=== PATIENT | male | born 1985 | race African-American/Black ===

== ENCOUNTER 2018-02-26 19:41 | Emergency (ER) | payer OTHER ==
[2018-02-26 20:29] LABS: BASOPHILS % (AUTO) 0.2 %; EOSINOPHILS % (AUTO) 0.4 %; HGB - HEMOGLOBIN 13.5 g/dL (14.0-18.0); LYMPHOCYTES # (AUTO) 1.2 10^3/uL (1.5-3.5); LYMPHOCYTES % (AUTO) 10.8 %; MEAN CORPUSCULAR HEMOGLOBIN 27.7 pg (27.0-31.0); MEAN CORPUSCULAR HGB CONC 33.2 g/dL (32.0-36.0); MEAN CORPUSCULAR VOLUME 83.4 fL (80.0-94.0); MONOCYTES # (AUTO) 1.3 10^3/uL (0.0-1.0); MONOCYTES % (AUTO) 11.4 %; NEUTROPHILS # (AUTO) 8.5 10^3/uL (1.5-6.6); NEUTROPHILS % (AUTO) 77.2 %; PLT - PLATELET COUNT 158 10^3/uL (130-450); RED BLOOD COUNT 4.87 10^6/uL (4.70-6.10); RED CELL DISTRIBUTION WIDTH 13.4 % (12.0-15.0)
[2018-02-26] MEDS ORDERED: SODIUM CHLORIDE 0.9% 1,000 ML IV ONE (20:31)
--- NOTE | 2018-02-26 20:35 | ED Physician Documentation ---
PD HPI HEENT - Stated complaint Stated Complaint: SORE THROAT/FEVER/DIZZY - Chief complaint Chief Complaint: Heent - History obtained from History obtained from: Patient - History of Present Illness Timing - onset: Today Timing - duration: Days (1) Timing - details: Abrupt onset, Still present Location: Throat (onset sore throat that is worsening quickly through the day.) Worsens: Swalllowing Associated symptoms: Fever, Trismus, Swollen nodes, Headache. No: Congestion, Unable to swallow, Facial swelling, Cough Similar symptoms before: Has not had sx before Recently seen: Not recently seen Review of Systems Constitutional: reports: Fever, Chills, Myalgias Ears: denies: Ear pain Nose: denies: Rhinorrhea / runny nose, Congestion Throat: reports: Sore throat, Swollen tonsils Respiratory: denies: Cough GI: denies: Abdominal Pain, Vomiting, Diarrhea : reports: Other (his does not have any vaginal pain/discharge). denies : Discharge Skin: denies: Rash PD PAST MEDICAL HISTORY - Past Medical History Cardiovascular: None Respiratory: None Neuro: None Endocrine/Autoimmune: None - Present Medications Home Medications: Ambulatory Orders Medication Instructions Recorded Confirmed Cephalexin [Keflex] 500 mg PO QID #28 capsule 02/26/18 Dexamethasone [Decadron] 4 mg PO DAILY #5 tablet 02/26/18 Dextroamphetamine/Amphetamine 1 tab PO TID 02/26/18 02/26/18 [Adderall 20 mg Tablet] HYDROcod/ACETAM 5/325 [Lincoln 5/325] 1 tab PO Q6H PRN #15 tablet 02/26/18 Ondansetron Odt [Zofran] 4 mg TL Q6H PRN #10 tablet 02/26/18 - Allergies Allergies/Adverse Reactions: Allergies Allergy/AdvReac Type Severity Reaction Status Date / Time Penicillins Allergy Edema Verified 02/26/18 19:49 - Living Situation Living Situation: reports: With spouse/s.o. Living Arrangement: reports: At home PD ED PE NORMAL - Vitals Vital signs reviewed: Yes - General General: Alert and oriented X 3, Well developed/nourished, Other (appears in pain with swallowing and has somewhat garbled voice talking. ) - HEENT HEENT: Ears normal, Dentition benign. No: Pharynx benign (tonsillar exudate and swelling and right peritonsillar edema and redness but not bulging/ deviated. ) - Neck Neck: Supple, no meningeal sign, Other (anterior adenopathy tender, especially right. ) - Cardiac Cardiac: RRR, No murmur - Respiratory Respiratory: Clear bilaterally - Abdomen Abdomen: Soft, Non tender - Derm Derm: Normal color, Warm and dry, No rash - Neuro Neuro: Alert and oriented X 3, No motor deficit. No: Normal speech Results - Vitals Vitals: Vital Signs - 24 hr 02/26/18 02/26/18 02/26/18 19:45 20:32 20:39 Temperature 38.8 C H 39.4 C H Heart Rate 108 H 100 100 Respiratory 19 20 20 Rate Blood Pressure 158/91 H 146/89 H O2 Saturation 95 95 96 02/26/18 21:02 Temperature 39.2 C H Heart Rate 99 Respiratory 22 Rate Blood Pressure 129/70 O2 Saturation 94 Oxygen O2 Source Room air - Labs Labs: Laboratory Tests 02/26/18 02/26/18 02/26/18 19:49 20:18 20:18 WBC 11.0 H RBC 4.87 Hgb 13.5 L Hct 40.6 L MCV 83.4 MCH 27.7 MCHC 33.2 RDW 13.4 Plt Count 158 MPV 7.0 L Neut # (Auto) 8.5 H Lymph # (Auto) 1.2 L Tyrrell # (Auto) 1.3 H Eos # (Auto) 0.0 Baso # (Auto) 0.0 Absolute Nucleated RBC 0.00 Nucleated RBC % 0.0 Sodium 128 L Potassium 3.8 Chloride 91 L Carbon Dioxide 28 Anion Gap 9.0 BUN 16 Creatinine 1.2 Estimated GFR (MDRD) 85 L Glucose 125 H Calcium 8.7 Total Bilirubin 1.0 AST 34 ALT 38 Alkaline Phosphatase 61 Total Protein 7.6 Albumin 3.9 Globulin 3.7 Albumin/Globulin Ratio 1.1 Lipase 21 L Group A Strep Rapid Negative PD MEDICAL DECISION MAKING - ED course Complexity details: re-evaluated patient (feeling better with swallowing though still hurts; voice is less garbled already. ), considered differential, d/w patient Departure - Departure Disposition: 01 Home, Self Care Clinical Impression: Peritonsillar cellulitis Acute tonsillitis Qualifiers: Pharyngitis/tonsillitis etiology: unspecified etiology Qualified Code(s): J03.90 - Acute tonsillitis, unspecified Condition: Stable Record reviewed to determine appropriate education?: Yes Instructions: ED Peritonsillar Infec Abx No I andD Prescriptions: Cephalexin [Keflex] 500 mg PO QID #28 capsule Dexamethasone [Decadron] 4 mg PO DAILY #5 tablet HYDROcod/ACETAM 5/325 [Lincoln 5/325] 1 tab PO Q6H PRN #15 tablet PRN Reason: Pain Ondansetron Odt [Zofran] 4 mg TL Q6H PRN #10 tablet PRN Reason: Nausea / Vomiting Comments: Drink lots of fluids. Cephalexin antibiotic 4 times a day for the next week. Decadron steroid for the inflammation daily for 5 more days. Tylenol or ibuprofen if needed for fevers or pains. Add hydrocodone if needed for worse pain. Ondansetron if needed for nausea. Recheck if not improving well in the next day or 2 and pretty much all better by 4-5 days. Return sooner if worsening, in particular trouble breathing or unable to swallow adequately for hydration. Sometimes this will worsen despite the medication inform into an abscess that needs draining Discharge Date/Time: 02/26/18 22:31
[2018-02-26 20:39] LABS: ALBUMIN 3.9 g/dL (3.2-5.5); ALBUMIN/GLOBULIN RATIO 1.1 (1.0-2.2); CALCIUM 8.7 mg/dL (8.5-10.3); CREATININE 1.2 mg/dL (0.6-1.2); TOTAL PROTEIN 7.6 g/dL (6.7-8.2)
[2018-02-26 21:03] VITALS: BP 129/70
[2018-02-26] MEDS ORDERED: ACETAMINOPHEN 500 MG TABLET PO STA (21:04)
[2018-02-26] MEDS ORDERED: ONDANSETRON ODT 4 MG Prepack 2 TL PRN (21:12)
[2018-02-26] MEDS ORDERED: KETOROLAC 30 MG/ML VIAL IVP STA (21:12)
[2018-02-26] MEDS ORDERED: HYDROcod/ACET 5/325 Prepack 4 PO STA (21:12)
[2018-02-26] MEDS ORDERED: cefTRIAXone 1 GM in SODIUM CHLORIDE 0.9% MINIBAG 100 ML IV STA (21:12)
[2018-02-26] MEDS ORDERED: MORPHINE 10 MG/ML VIAL IVP STA (21:12)
[2018-02-26] MEDS ORDERED: DEXAMETHASONE 10 MG/ML VIAL IVP STA (21:12)
[2018-02-26] MEDS ORDERED: ONDANSETRON 4 MG/2 ML VIAL IVP STA (21:13)
== END 2018-02-26 22:31 | disposition home or self-care (01) ==
LOC: ED 19:41
DX: J03.90 Acute tonsillitis, unspecified (principal)
CPT/HCPCS: 36415; 80053; 83690; 85025; 87070; 87430; 96365; 96375; 99283; 99284; A9270

== ENCOUNTER 2021-02-09 20:38 | Emergency (ER) | payer MEDICAID, OTHER ==
--- NOTE | 2021-02-09 21:51 | XRAY Report ---
PROCEDURE: Foot 3 View LT INDICATIONS: proximal 5th pain chronic TECHNIQUE: 3 views of the foot were acquired. COMPARISON: None FINDINGS: No acute fracture identified. Posterior calcaneal spur. Tibiotalar joint degeneration and diffuse spu rring and subchondral sclerosis. Possible bunionette deformity of the fifth metatarsal with soft tiss ue swelling at the lateral aspect of the fifth metatarsal head although weightbearing views would be more specific. IMPRESSION: Possible bunionette deformity of the fifth metatarsal with adjacent soft tissue swelling lateral to t he left fifth metatarsal head. Consider weightbearing views for more specific evaluation. Reviewed by: Miguel Spring MD on 02/09/2021 9:50 PM PDT Approved by: Miguel Spring MD on 02/09/2021 9:50 PM PDT Station ID: [id number]
[2021-02-09] MEDS ORDERED: RIVAROXABAN 15 MG TABLET PO STA (23:22)
--- NOTE | 2021-02-09 23:25 | ED Physician Documentation ---
History of Present Illness - Stated complaint Stated Complaint: L FOOT PX - Chief complaint Chief Complaint: Ext Problem - History obtained from History obtained from: Patient - History of Present Illness Timing: How many weeks ago (2) - Additonal information Additional information: 35-year-old male who is 6 feet 7 and 212 kg has a new baby and he has been stay ing up nights and he has been mostly sedentary and is used a lot of physical activity. he has developed some swelling to his left lower extremity and he is concerned about a deep vein thrombosis. He has some pain in the back of his calf and all the way up into his thigh. He has some pain on his foot as well especially over the proximal fifth metatarsal and he has had pain there chronically. Review of Systems Constitutional: denies: Fever Nose: denies: Congestion Throat: denies: Sore throat Cardiac: denies: Chest pain / pressure, Palpitations Respiratory: denies: Dyspnea, Cough GI: denies: Vomiting : denies: Dysuria PD PAST MEDICAL HISTORY - Past Medical History Past Medical History: Yes Cardiovascular: None Respiratory: None Neuro: None Endocrine/Autoimmune: None Psych: ADD/ADHD - Past Surgical History Past Surgical History: Yes - Present Medications Home Medications: Ambulatory Orders Medication Instructions Recorded Confirmed Rivaroxaban [Xarelto] 15 mg PO BID #42 tablet 02/09/21 - Allergies Allergies/Adverse Reactions: Allergies Allergy/AdvReac Type Severity Reaction Status Date / Time Penicillins Allergy Edema Verified 02/09/21 20:41 - Social History Does the pt smoke?: No Smoking Status: Never smoker Does the pt drink ETOH?: Yes Does the pt have substance abuse?: No - Immunizations Immunizations are current?: Yes - POLST Patient has POLST: No PD ED PE NORMAL - Vitals Vital signs reviewed: Yes (hypertensive ) - General General: Alert and oriented X 3, No acute distress, Well developed/nourished - HEENT HEENT: Atraumatic, PERRL, EOMI - Respiratory Respiratory: No respiratory distress - Derm Derm: Normal color, Warm and dry, No rash - Extremities Extremities: Other (There is swelling and tenderness to the posterior calf and there is swelling to the leg. There is pain to palp of the proximal 5th in a specific area. distal n/v intact. 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 Limited exam due to patient body habitus. Possible partial thrombus of the proximal left peroneal vein. No evidence of deep vein thrombosis above the level of the knee.), EMP read indepedently, See rad report foot Radiology: Prelim report reviewed (Impression: Possible bunionette deformity of the fifth metatarsal with adjacent soft tissue swelling lateral to the fifth metatarsal head. Consider weightbearing views for more specific evaluation.), EMP read indepedently, See rad report PD MEDICAL DECISION MAKING - ED course Complexity details: reviewed results, re-evaluated patient, considered differential, d/w patient ED course: 35-year-old male with swelling to the left lower extremity has a peroneal vein DVT and this is a distal DVT. Because the patient is symptomatic with the swelling and pain he is offered anticoagulation and readily accepts this. He is administered Xarelto 15 mg twice daily for the next 3 weeks to be followed by 20 mg daily. I have encouraged the patient to follow-up with his primary to consider reimaging this area as prolonged treatment may not be necessary. Departure - Departure Disposition: 01 Home, Self Care Clinical Impression: DVT, lower extremity, distal, acute Qualifiers: Laterality: left Qualified Code(s): I82.4Z2 - Acute embolism and thrombosis of unspecified deep veins of left distal lower extremity Condition: Stable Instructions: ED DVT Follow-Up: Nehemias Yost MD [Primary Care Provider] - Prescriptions: Rivaroxaban [Xarelto] 15 mg PO BID #42 tablet Comments: Serg, today you have a distal deep vein thrombosis in your calf in the peroneal vein. You are symptomatic with this and treatment is indicated. The treatment consists of anticoagulation with Xarelto. You will need to take this twice per day for about 3 weeks and follow that up with once a day for 3 months. These distal DVTs are sometimes treated without anticoagulation and my recommendation is to follow-up with your primary care doctor and have a repeat ultrasound done as you may have resolution of your clot once you start the anticoagulation. This may lead to an early dismissal of the anticoagulation. Discharge Date/Time: 02/09/21 23:46
[2021-02-09 23:48] VITALS: BP 132/89
--- NOTE | 2021-02-10 07:16 | Ultrasound Report ---
PROCEDURE: Duplex Ext Veins Left INDICATIONS: L LE swelling pain TECHNIQUE: Real-time imaging, as well as color and pulse Doppler interrogation, were performed of the lower extr emity deep veins from the inguinal ligament to the popliteal fossa. COMPARISON: None. FINDINGS: Image quality and diagnostic 2 view study limited by patient body habitus. The deep veins are normally compressible, and free of intraluminal thrombus. Color and pulse Doppler demonstrate normal phasic intraluminal flow. There is normal augmentation response to distal compre ssion maneuver. Partial partial thrombus identified in the proximal left peroneal veins. IMPRESSION: 1. No evidence of thrombosis involving the deep venous system of the left lower extremity. 2. Possible partial nonocclusive thrombus involving the proximal left peroneal veins of the superfici al venous system. Reviewed by: Leigh Ann Hendrickson MD, PhD on 02/10/2021 7:14 AM PDT Approved by: Leigh Ann Hendrickson MD, PhD on 02/10/2021 7:14 AM PDT Station ID: [id number]
== END 2021-02-09 23:46 | disposition home or self-care (01) ==
LOC: ED 20:38
DX: I82.452 Acute embolism and thrombosis of left peroneal vein (principal)
CPT/HCPCS: 73630; 93971; 99284; A9270

== ENCOUNTER 2021-07-06 08:00 | Outpatient (CLI) | payer MEDICAID | END 2021-07-06 23:59 | disposition home or self-care (01) | LOC: LAB.S 08:00 | PROVIDERS: ATTEND Emergency Medicine | DX: L03.115 Cellulitis of right lower limb (principal) | CPT/HCPCS: 87070; 87077; 87181; 87205 ==

== ENCOUNTER 2021-07-08 21:03 | Emergency (ER) | payer MEDICAID ==
[2021-07-08 21:27] VITALS: BP 152/92
[2021-07-08] MEDS ORDERED: KETOROLAC 60 MG/2 ML VIAL IM STA (21:50)
[2021-07-08] MEDS ORDERED: CLINDAMYCIN 150 MG CAPSULE PO STA (21:51)
[2021-07-08] MEDS ORDERED: LIDOCAINE 1%-EPI 1:100000 20 ML MDV SUBQ STA (21:55)
--- NOTE | 2021-07-08 23:16 | ED Physician Documentation ---
History of Present Illness - Stated complaint Stated Complaint: RT LEG PX/INFECTION/FEVER - Chief complaint Chief Complaint: Ext Problem - History obtained from History obtained from: Patient - Additonal information Additional information: 36-year-old man presents with right inner thigh wound for the past week, currently on day 2 of bactrim. patient had temp 99.7 by ear thermometer so came to the ED. Review of Systems Constitutional: reports: Fever. 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 - Past Surgical History Past Surgical History: Yes - Present Medications Home Medications: Ambulatory Orders Medication Instructions Recorded Confirmed Rivaroxaban [Xarelto] 15 mg PO BID #42 tablet 02/09/21 Clindamycin [Cleocin] 450 mg PO TID 14 Days 07/08/21 - Allergies Allergies/Adverse Reactions: Allergies Allergy/AdvReac Type Severity Reaction Status Date / Time Penicillins Allergy Edema Verified 07/08/21 21:15 - Social History Does the pt smoke?: No Smoking Status: Never smoker Does the pt drink ETOH?: No Does the pt have substance abuse?: No - Immunizations Immunizations are current?: Yes - POLST Patient has POLST: No PD ED PE NORMAL - Vitals Vital signs reviewed: Yes - General General: Alert and oriented X 3, No acute distress, Well developed/nourished - HEENT HEENT: Atraumatic, PERRL, EOMI - Derm Derm: Normal color, Warm and dry, Other (R inner thigh erythema with discrete area of induration c/w abscess) Results - Vitals Vitals: Vital Signs - 24 hr 07/08/21 07/08/21 07/08/21 21:08 21:26 23:21 Temperature 36.4 C L 36.4 C L 98.4 C H Heart Rate 96 86 Respiratory 18 20 Rate Blood Pressure 151/103 H 152/92 H O2 Saturation 96 98 96 Oxygen O2 Source Room air - Labs Labs: Microbiology 07/08/21 22:49 Wound Culture - Preliminary Leg - Right Procedures - Abscess I&D (location) Lower extremity right Preparation: Confirmed with ultrasound, Lidocaine 1%, With epi Incision: Incised with scalpel, Purulent drainage, Loculations broken, Irrigated, Packed, Culture obtained Other: Pt tolerated well, Dressing applied, Antibiotic prescribed PD MEDICAL DECISION MAKING - ED course ED course: Drains abscess and placed patient on stronger antibiotic prescription. Return precautions given. He will follow up for wound check in 48 hours. Departure - Departure Disposition: 01 Home, Self Care Clinical Impression: Abscess Condition: Good Instructions: ED Abscess IandD Prescriptions: Clindamycin [Cleocin] 450 mg PO TID 14 Days Comments: You were seen in the emergency department for abscess. You need to follow-up in 48 hours for wound check and to have the packing removed and possibly replaced. Take your antibiotics as prescribed. Ask the pharmacist for a probiotic pill to take with the antibiotics so you don't get diarrhea. Return to the emergency department immediately if you have a temperature higher than 100.4 by mouth or armpit thermometer. Please also return if you have spreading redness, pain, or any other concerns. Discharge Date/Time: 07/08/21 23:21
== END 2021-07-08 23:21 | disposition home or self-care (01) ==
LOC: ED 21:03
DX: L02.415 Cutaneous abscess of right lower limb (principal); Z86.718 Personal history of other venous thrombosis and embolism; Z79.01 Long term (current) use of anticoagulants
CPT/HCPCS: 10061; 87070; 87077; 87181; 87205; 96372; 99283; A9270

== ENCOUNTER 2021-07-11 10:51 | Emergency (ER) | payer MEDICAID ==
[2021-07-11 11:00] VITALS: BP 189/105
--- NOTE | 2021-07-11 12:13 | ED Physician Documentation ---
PD HPI WOUND RECHECK - Stated complaint Stated Complaint: R LEG WOUND CHECK - Chief complaint Chief Complaint: Wound - Histroy obtained from History obtained from: Patient - Additional information Additional information: He presents for packing replacements to abscess that was incised and drained a few days ago on right medial thigh. He feels like it is improving with not too much pain and no fevers. Review of Systems Constitutional: reports: Reviewed and negative Eyes: reports: Reviewed and negative Ears: reports: Reviewed and negative Nose: reports: Reviewed and negative Throat: reports: Reviewed and negative PD PAST MEDICAL HISTORY - Past Medical History Cardiovascular: Deep vein thrombosis Respiratory: None Neuro: None Endocrine/Autoimmune: None Psych: ADD/ADHD - Past Surgical History Past Surgical History: Yes - Present Medications Home Medications: Ambulatory Orders Medication Instructions Recorded Confirmed Rivaroxaban [Xarelto] 15 mg PO BID #42 tablet 02/09/21 Clindamycin [Cleocin] 450 mg PO TID 14 Days 07/08/21 Doxycycline Hyclate 100 mg PO BID #14 tab 07/11/21 - Allergies Allergies/Adverse Reactions: Allergies Allergy/AdvReac Type Severity Reaction Status Date / Time Penicillins Allergy Edema Verified 07/11/21 11:00 - Social History Does the pt smoke?: No Smoking Status: Never smoker Does the pt drink ETOH?: No Does the pt have substance abuse?: No - Immunizations Immunizations are current?: Yes - POLST Patient has POLST: No PD ED PE NORMAL - Vitals Vital signs reviewed: Yes - General General: Alert and oriented X 3, No acute distress - Derm Derm: Other (The abscess in the right medial thigh is completely drained, packing removed. The opening is gaping so I do not think it needs to be repacked.) - Neuro Neuro: Alert and oriented X 3, Normal speech Results - Vitals Vitals: Vital Signs - 24 hr 07/11/21 10:55 Temperature 36.8 C Heart Rate 88 Respiratory 20 Rate Blood Pressure 189/105 H O2 Saturation 94 Oxygen O2 Source Room air PD MEDICAL DECISION MAKING - ED course ED course: Culture reviewed, he will stop the clindamycin I am substituting doxycycline for the Enterococcus. Departure - Departure Disposition: 01 Home, Self Care Clinical Impression: Abscess Condition: Good Record reviewed to determine appropriate education?: Yes Instructions: ED Abscess IandD Prescriptions: Doxycycline Hyclate 100 mg PO BID #14 tab Comments: Prescription sent electronically to [facility] in [place]. You can simply wash with soap and water in the shower and keep it covered with a gauze. Return if worsening. As discussed, you can stop taking the clindamycin as we are changing her antibiotic based on the previous culture.
== END 2021-07-11 12:31 | disposition home or self-care (01) ==
LOC: ED 10:51
DX: L02.415 Cutaneous abscess of right lower limb (principal); Z48.01 Encounter for change or removal of surgical wound dressing; Z86.718 Personal history of other venous thrombosis and embolism

== ENCOUNTER 2021-11-18 08:42 | Outpatient (CLI) | payer MEDICAID ==
[2021-11-18 09:22] VITALS: BP 132/84
--- NOTE | 2021-11-18 09:22 | SLEEP CARE CONSULTATION ---
Information from patient questionnaire entered by Arben Bañuelos MA. I have reviewed and concur with the information entered by Arben Bañuelos MA. This document represents the service I personally performed and the decisions made by me, Jovanna Riley ARNP. History of Present Illness Service Date and Time: 11/18/2021 0842 Reason for Visit: New patient Chief Complaint: reports: Unrefreshed sleep, Snoring, Observed pauses in breathing, Fatigue Date of Onset: years Usual bedtime: 900 pm Time it takes to fall asleep: instant Snores at night: Yes Observed to quit breathing while asleep: Yes Sleeps alone due to snoring: No Number of times waking at night: 1-2 Reasons for waking at night: reports: Choking, Snoring, Bathroom, Other Toss, Turn, or Twitch while sleeping: Yes Recalls having dreams: No Usually gets out of bed at: 0400 Feels refreshed in the morning: No Morning headache: No Sleepy or fatigued during the day: Yes Ever fallen asleep while driving: No Takes day naps: No Dreams during day naps: No Prior sleep studies: No Additional HPI information: I had the pleasure of seeing GUSTAVO LEVIN today regarding the possibility of him having a sleep disorder. His current complaints are snoring, observed pauses in breathing and fatigue. His has been noticing that he is stopping breathing in his sleep. This last year he has been gaining weight since he stopped working out. He snores really loudly. He does not wake up as rested. He normally gets 4-6 hours a night. He will quickly fall asleep. His bed partner can still sleep in the same bed. He can recall waking up on the average of once a night. Most of the time he wakes up because of needing to use the bathroom. He has occasionally awakened for his own snoring, choking, and having to gasp for air. There is a lot of tossing and turning in his sleep. Generally he can recall having dreams. He usually wakes up at [id number] and does not feel refreshed. He usually does not have a morning headache. During the day he complains of feeling sleepy and fatigued. He has fallen asleep while driving and has gone out of the judi, no accident. He usually does not take naps during the day. There is somniloquy (sleep talking) but no somnambulism (sleep walking). He has never experienced sleep paralysis, cataplexy, or symptoms of restless leg syndrome. He denies having impaired concentration during the day. 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 Patient is and lives in [place]. Have you smoked in the past 12 months: No Quit date: QUIT TOBACCO/CHEW Alcohol use: No Alcohol amount and frequency: ALCOHOLIC QUIT Caffeine use: Yes Caffeine amount and frequency: 10-12 OZS OF COFFEE x daily Family History Family history of sleep disordered breathing: Yes Family Hx Sleep Apnea: Sibling: Snoring, Grandparent: Snoring, Sleep apnea - Untreated Allergies and Home Medications Drug allergies reviewed: Yes (Penicillin) Home medication list reviewed: Yes (no daily medications or supplements) Allergy and home medication list: Allergies Penicillins Allergy (Verified 07/11/21 11:00) Edema Review of Systems Weight loss over past 5 years: 60 Cardiovascular: reports: high blood pressure, leg or foot swelling Respiratory: reports: wheeze, sputum production Gastrointestinal: reports: heartburn, difficulty swallowing Neurological: reports: fainting or unconsciousness Ear/Nose/Throat: reports: nose bleeds Endocrine: reports: sluggishness Musculoskeletal: reports: joint pain, neck pain, joint swelling, mobility problems, other (swollen legs) Physical Exam Vital signs obtained and entered by: PAUL Chahal Blood Pressure: 132/84 (RIGHT, PULSE 82, RESP 14, ) Cuff size: wrist Heart Rate: 86 O2 Saturation: 96 (PAPER MASK) Height: 6 ft 6 in Weight: 460 lb (WITH CLOTHES AND SHOES) Body Mass Index: 53.1 BMI Classification: Morbidly Obese Neck circumference: 19.5 (inches) Mouth and throat: narrow oropharynx Soft palate: normal Hard palate: normal Uvula: long Uvula visualization: 50% Mallampati Class II Tongue: normal in size Tonsils: 3+/kissing Neck: normal w/o lymphadenopathy or thyromegaly Heart: regular rate and rhythm Lungs: clear bilaterally Impression and Plan 1. Suspected Obstructive Sleep Apnea-Hypopnea Syndrome, as suggested by a history of loud and irregular snoring, observed cessation of breath while asleep, gasping or choking in sleep and unrefreshed sleep. Narrow oropharynx and obesity are common predisposing factors for obstructive sleep apnea-hypopnea syndrome. I recommend proceeding to polysomnography to confirm the diagnosis and to assess severity. If the patient has significant sleep disordered breathing, a manual CPAP titration study will also be performed to find the optimal treatment pressure. I informed the patient of what the sleep studies involve and after some discussion, obtained agreement to proceed. The pathophysiology of obstructive sleep apnea-hypopnea syndrome was discussed with the patient and health risks of cardiovascular and cerebrovascular disease if not treated. Risks of drowsy driving discussed in detail and patient advised to avoid long distance driving and to order puller at the first sign of drowsiness. Patient agreed to plan. * Schedule polysomnography +- manual CPAP titration study and return in 1-2 weeks after the study to discuss result and initiate therapy. * Avoid long distance driving or driving when feeling sleepy. * Avoid alcohol, sedative and muscle relaxant around bedtime. * Attempt to lose weight. * Review instructions provided by trained office staff on how to prepare for the sleep study. * Return for follow-up after sleep study completed. Counseling Topics: Weight loss health impact Visit Type: In Office Time Spent with Patient (minutes): 31 Provider Statement: I spent 100% of the Face to Face Visit with the patient with greater than 50% spent counseling the patient and coordination of care.
== END 2021-11-18 08:43 | disposition home or self-care (01) ==
LOC: SC 08:42
PROVIDERS: ATTEND Nurse Practitioner Family
DX: G47.8 Other sleep disorders (principal); R06.81 Apnea, not elsewhere classified; R06.83 Snoring; E66.01 Morbid (severe) obesity due to excess calories; Z68.43 Body mass index [BMI] 50.0-59.9, adult
CPT/HCPCS: 99203; 99212

== ENCOUNTER 2021-11-29 10:08 | Outpatient (CLI) | payer MEDICAID ==
--- NOTE | 2021-11-29 12:37 | Ultrasound Report ---
PROCEDURE: Duplex Ext Veins Left INDICATIONS: DVT TECHNIQUE: Real-time imaging, as well as color and pulse Doppler interrogation, were performed of the lower extr emity deep veins from the inguinal ligament to the popliteal fossa. COMPARISON: 02/09/2021. FINDINGS: There is chronic appearing deep venous thrombosis involving the mid and distal segments of the left peroneal vein. No dilatation seen. The remainder the visualized deep veins are normally com pressible, and free of intraluminal thrombus. Color and pulse Doppler demonstrate normal phasic intr aluminal flow. There is normal augmentation response to distal compression maneuver. IMPRESSION: Chronic appearing mid and distal left peroneal thrombosis. No acute deep venous thrombosis of the semaj ged left lower extremity. Reviewed by: Jamie Hayes MD on 11/29/2021 12:36 PM PST Approved by: Jamie Hayes MD on 11/29/2021 12:36 PM PST Station ID: [id number]
== END 2021-11-29 10:09 | disposition home or self-care (01) ==
LOC: DI 10:08
PROVIDERS: ATTEND Internal Medicine
DX: I82.402 Acute embolism and thrombosis of unspecified deep veins of left lower extremity (principal)

== ENCOUNTER 2021-12-05 12:00 | Outpatient (CLI) | payer MEDICAID | END 2021-12-05 12:01 | disposition home or self-care (01) | LOC: LAB.S 12:00 | PROVIDERS: ATTEND Internal Medicine | DX: I82.91 Chronic embolism and thrombosis of unspecified vein (principal); Z79.01 Long term (current) use of anticoagulants | CPT/HCPCS: 36416; 85610 ==

== ENCOUNTER 2021-12-31 10:44 | Emergency (ER) | payer MEDICAID ==
[2021-12-31 10:52] VITALS: BP 169/93
--- NOTE | 2021-12-31 11:46 | ED Physician Documentation ---
History of Present Illness - Stated complaint Stated Complaint: LT LEG PX - Chief complaint Chief Complaint: Ext Problem - History obtained from History obtained from: Patient - History of Present Illness Timing: Today Pain level max: 3 Pain level now: 2 - Additonal information Additional information: Patient is a 36-year-old male who presents to the emergency department left leg pain and swelling. He states it is in the left upper thigh. Has a known chronic DVT in the left peroneal vein. He is on warfarin. No fevers. No chills. No trauma. Nothing makes it better or worse. No chest pain. No difficulty breathing. Review of Systems Constitutional: denies: Fever, Chills Ears: denies: Ear pain Throat: denies: Sore throat Cardiac: denies: Chest pain / pressure, Palpitations Respiratory: denies: Dyspnea, Cough PD PAST MEDICAL HISTORY - Past Medical History Past Medical History: Yes Cardiovascular: Deep vein thrombosis Respiratory: None Neuro: None Endocrine/Autoimmune: None Psych: ADD/ADHD - Past Surgical History Past Surgical History: Yes - Present Medications Home Medications: Ambulatory Orders Medication Instructions Recorded Confirmed Rivaroxaban [Xarelto] 15 mg PO BID #42 tablet 02/09/21 Clindamycin [Cleocin] 450 mg PO TID 14 Days 07/08/21 Doxycycline Hyclate 100 mg PO BID #14 tab 07/11/21 - Allergies Allergies/Adverse Reactions: Allergies Allergy/AdvReac Type Severity Reaction Status Date / Time Penicillins Allergy Edema Verified 12/31/21 10:52 - Social History Does the pt smoke?: No Smoking Status: Never smoker Does the pt drink ETOH?: No Does the pt have substance abuse?: No - Immunizations Immunizations are current?: Yes - POLST Patient has POLST: No PD ED PE NORMAL - Vitals Vital signs reviewed: Yes - General General: Alert and oriented X 3, No acute distress - HEENT HEENT: Moist mucous membranes - Neck Neck: Supple, no meningeal sign - Cardiac Cardiac: RRR - Respiratory Respiratory: No respiratory distress, Clear bilaterally - Abdomen Abdomen: Soft, Non tender, Non distended - Derm Derm: Warm and dry - Extremities Extremities: Other (Mild swelling to the left medial thigh. No erythema. No evidence of abscess. No evidence of infection. Otherwise normal exam of the left lower extremity. Neurovascular intact) - Neuro Neuro: Alert and oriented X 3 - Psych Psych: Normal mood, Normal affect Results - Vitals Vitals: Vital Signs - 24 hr 12/31/21 10:49 Temperature 36.4 C L Heart Rate 81 Respiratory 20 Rate Blood Pressure 169/93 H O2 Saturation 95 Oxygen O2 Source Room air - Labs Labs: Laboratory Tests 12/31/21 11:13 INR (Fingerstick) 1.8 H - Rads (name of study) Duplex ultrasound left lower extremity Radiology: Final report received, EMP read contemporaneously, See rad report (No acute DVT. Chronic DVT still present.) PD MEDICAL DECISION MAKING - ED course Complexity details: reviewed results, re-evaluated patient, considered differential, d/w patient ED course: No acute findings on ultrasound. Has a known chronic DVT. Warfarin level is 1.8. We will continue his current dosage. We will have him follow-up with his doctor for further care. Unclear etiology of the small area of swelling. Patient counseled regarding signs and symptoms for which I believe and urgent re-evaluation would be necessary. Patient with good understanding of and agreement to plan and is comfortable going home at this time This document was made in part using voice recognition software. While efforts are made to proofread this document, sound alike and grammatical errors may occur. Departure - Departure Disposition: 01 Home, Self Care Clinical Impression: Peripheral edema Condition: Good Instructions: ED Leg Swelling Unilateral Follow-Up: Mihir Bay MD [Primary Care Provider] - Within 1 week Comments: The cause of the swelling is unclear. Continue your medications at home. Please follow-up with your doctor for further care. Return if you worsen.
--- NOTE | 2021-12-31 13:37 | Ultrasound Report ---
PROCEDURE: Duplex Ext Veins Left INDICATIONS: LLE swelling, pain, h/o DVT TECHNIQUE: Real-time imaging, as well as color and pulse Doppler interrogation, were performed of the lower extr emity deep veins from the inguinal ligament to the popliteal fossa. COMPARISON: 11/29/2021, 02/09/2021 FINDINGS: Chronic-appearing, partially occlusive deep venous thrombosis can be seen involving the lef t peroneal veins from the mid to distal portion. This is somewhat improved compared to the prior stud y dated 11/29/2021. The proximal deep veins are normally compressible, and free of intraluminal thrombus. IMPRESSION: Improved distal deep venous thrombosis within the mid to distal peroneal veins compared to the prior. No proximal deep venous thrombosis can be seen. Reviewed by: Florin Burr MD on 12/31/2021 12:35 PM SUE Approved by: Florin Burr MD on 12/31/2021 12:35 PM SUE Station ID: [id number]
== END 2021-12-31 13:47 | disposition home or self-care (01) ==
LOC: ED 10:44
DX: M79.605 Pain in left leg (principal); R60.9 Edema, unspecified; Z86.718 Personal history of other venous thrombosis and embolism; Z79.01 Long term (current) use of anticoagulants
CPT/HCPCS: 85610; 99282; 99284

== ENCOUNTER 2022-01-09 08:00 | Outpatient (CLI) | payer MEDICAID | END 2022-01-09 08:01 | disposition home or self-care (01) | LOC: LAB.N 08:00 | PROVIDERS: ATTEND Internal Medicine | DX: I82.90 Acute embolism and thrombosis of unspecified vein (principal); I82.91 Chronic embolism and thrombosis of unspecified vein; Z79.01 Long term (current) use of anticoagulants | CPT/HCPCS: 36416; 85610 ==

== ENCOUNTER 2022-01-23 15:15 | Outpatient (CLI) | payer MEDICAID | END 2022-01-23 15:16 | disposition home or self-care (01) | LOC: SC 15:15 | PROVIDERS: ATTEND Nurse Practitioner Family | DX: G47.33 Obstructive sleep apnea (adult) (pediatric) (principal); R09.02 Hypoxemia | CPT/HCPCS: 95806 ==

== ENCOUNTER 2022-01-31 09:00 | Outpatient (CLI) | payer MEDICAID ==
[2022-01-31 09:26] VITALS: BP 146/82
--- NOTE | 2022-01-31 09:26 | SLEEP CARE CONSULTATION ---
Information from patient questionnaire entered by Arben Bañuelos MA. I have reviewed and concur with the information entered by Arben Bañuelos MA. This document represents the service I personally performed and the decisions made by , Jovanna Riley ARNP. History of Present Illness Service Date and Time: 01/31/2022 0900 Initial [place] Sleepiness Scale score: 10 (2021) Current [place] Sleepiness Scale score: 11 (01/2022) Additional HPI information: GUSTAVO LEVIN returns for follow up and results of the recently performed home sleep study. I explained the pathophysiology behind obstructive sleep apnea. We then spent qu ite a bit of time discussing different treatment options. For mild obstructive sleep apnea, surgery and oral appliance are alternatives to nasal CPAP therapy but in moderate or severe cases, nasal CPAP is the most effective and reliable treatment. I reviewed the impact of weight changes on sleep apnea and strongly recommended losing weight. After some discussion, the patient opted to go with the nasal CPAP therapy. Nasal autoCPAP set at 5 20 cmH20 will be ordered with rationale explained. A manual titration study will be ordered if unable to find optimal pressure with office adjustments. I explained how CPAP machine works and what to expect when using the machine. Using CPAP every night in order to get used to it was emphasized. Patient advised to put CPAP mask on before getting into bed so as not to fall asleep without CPAP. To assist acclimation to CPAP use, it could also be used for a short time during day while reading or watching TV. The patient was instructed to call the CPAP supplier to discuss any mechanical problem that may occur. If the mask given is uncomfortable or is difficult to keep on through the night even with adjustment, contact the CPAP supplier as many will replace with another mask style if notified before 30 days. If snoring or perceives is not getting enough air or too much air from the machine, notify this office. Patient counseled not drink alcohol less than 4 hours before bedtime as it can increase snoring and apnea. Patient was cautioned about risks of drowsy driving until sleepiness symptoms resolve. Sleep Study - Results Type of Sleep Study: Home sleep study (F/U HME STUDY, 01/23/2022 [facility],) Prior sleep studies: No Polysomnography/Home Sleep Study results: Physician Impression: The quality of the study is good. The length of the study is adequate (> 240 minutes). Please also see the tabulated and graphic data. 1. Obstructive Sleep Apnea-Hypopnea (ICD-10 G47.33), very severe, with an AHI of 98.9/hr and john SaO2 of 54%. During the study, the patient had 519 apneas (519 obstructive, 0 central, 0 mixed) and 24 hypopneas. The longest episode lasted 94.0 seconds. The respiratory events occurred independently of body position (supine AHI was 105.8 and non-supine, 85.09). 2. Hypoxemia (ICD-10 R09.02), severe, with the lowest oxygen saturation of 54 % and 283.3 minutes with SaO2 under 90%. Baseline oxygen saturation was normal (Average oxygen saturation was 84%). Allergies and Home Medications Home medication list reviewed: Yes (no changes) Allergy and home medication list: Allergies Penicillins Allergy (Verified 12/31/21 10:52) Edema Review of Systems Review of systems same as previous: Yes (no changes) Physical Exam Vital signs obtained and entered by: Jackie BAÑUELOS CMA AACANDIDO Blood Pressure: 146/82 (LEFT, BICEPT, RESP 18, ) Heart Rate: 76 O2 Saturation: 93 Height: 6 ft 6 in Weight: 478 lb (CLOTHES) Body Mass Index: 55.2 BMI Classification: Morbidly Obese Impression and Plan 1. Obstructive Sleep Apnea-Hypopnea Syndrome, extremely severe, with lowest oxygen saturation of 54%. Obviously this is the cause of the patients symptoms of unrefreshed sleep, and excessive daytime sleepiness. Positive pressure therapy could benefit hypertension. Patient is on warfarin for DVT in left leg. As mentioned above, the patient will be started on nasal autoCPAP therapy with pressure set at 5-20 cmH2O. A manual titration study will be completed if unable to find optimal treatment pressure with office adjustments. Compliance guidelines also reviewed. A copy of compliance guidelines will be given for reference at check out. Because the apnea is more severe supine, I instructed to avoid sleeping supine using pillow positioning until able to start CPAP use. 2. Hypoxemia, severe, with the lowest oxygen saturation of 54 % and 283.3 minutes with SaO2 under 90%. His baseline oxygen saturation was low normal with an average oxygen saturation of 84%. * Nasal auto CPAP therapy, pressure at 5-20 cm H2O. * Attempt to lose weight. * Avoid alcohol consumption near bedtime. * Avoid supine sleep until using CPAP. * The patient is again cautioned about driving until sleepiness completely resolves. * Return one month after CPAP obtained. I will assess response to therapy and compliance at that time. Counseling Topics: Sleeping position, Weight loss health impact Visit Type: In Office Time Spent with Patient (minutes): 20 Provider Statement: I spent 100% of the Face to Face Visit with the patient with greater than 50% spent counseling the patient and coordination of care.
== END 2022-01-31 09:01 | disposition home or self-care (01) ==
LOC: SC 09:00
PROVIDERS: ATTEND Nurse Practitioner Family
DX: G47.33 Obstructive sleep apnea (adult) (pediatric) (principal); R09.02 Hypoxemia; E66.01 Morbid (severe) obesity due to excess calories; Z68.43 Body mass index [BMI] 50.0-59.9, adult
CPT/HCPCS: 99212; 99213

== ENCOUNTER 2022-06-14 16:51 | Emergency (ER) | payer MEDICAID ==
[2022-06-14 17:05] VITALS: BP 139/95
--- NOTE | 2022-06-14 17:11 | ED Physician Documentation ---
History of Present Illness - Stated complaint Stated Complaint: HIGH BP - Chief complaint Chief Complaint: Cardiac - History obtained from History obtained from: Patient - History of Present Illness Timing: Today Pain level max: 0 Pain level now: 0 - Additonal information Additional information: Patient is a 37-year-old male who was checked his blood pressure tonight at home and noticed that it was higher than usual, 170/110. He is fully asymptomatic. No headache. No vision changes. No chest pain. No shortness of breath. No abdominal pain. No neurological deficits. No numbness or tingling. He states that he called his doctor who told him to come to the emergency department to have his blood pressure checked so it was "documented". He has not been taking his antihypertensive medication at home. Review of Systems Constitutional: denies: Fever, Chills Eyes: denies: Decreased vision, Photophobia Cardiac: denies: Chest pain / pressure Respiratory: denies: Cough GI: denies: Vomiting, Diarrhea Musculoskeletal: denies: Neck pain, Back pain Neurologic: denies: Focal weakness, Numbness, Headache PD PAST MEDICAL HISTORY - Past Medical History Cardiovascular: Deep vein thrombosis Respiratory: None Neuro: None Endocrine/Autoimmune: None Psych: ADD/ADHD - Past Surgical History Past Surgical History: Yes - Present Medications Home Medications: Ambulatory Orders Medication Instructions Recorded Confirmed Rivaroxaban [Xarelto] 15 mg PO BID #42 tablet 02/09/21 06/14/22 Albuterol Sulf [Ventolin Hfa 2 - 3 puffs INH QID PRN 14 Days #1 02/25/22 06/14/22 Inhaler] inhaler lisinopriL [Lisinopril] 20 mg PO DAILY 02/25/22 06/14/22 - Allergies Allergies/Adverse Reactions: Allergies Allergy/AdvReac Type Severity Reaction Status Date / Time Penicillins Allergy Edema Verified 06/14/22 17:05 - Social History Does the pt smoke?: No Smoking Status: Never smoker Does the pt drink ETOH?: No Does the pt have substance abuse?: No - Immunizations Immunizations are current?: Yes - POLST Patient has POLST: No PD ED PE NORMAL - Vitals Vital signs reviewed: Yes - General General: Alert and oriented X 3, No acute distress, Well developed/nourished - HEENT HEENT: Moist mucous membranes - Neck Neck: Supple, no meningeal sign - Cardiac Cardiac: RRR - Respiratory Respiratory: No respiratory distress, Clear bilaterally - Abdomen Abdomen: Soft, Non tender, Non distended - Derm Derm: Warm and dry - Neuro Neuro: Alert and oriented X 3 - Psych Psych: Normal mood, Normal affect Results - Vitals Vitals: Vital Signs - 24 hr 06/14/22 16:58 Temperature 36.5 C Heart Rate 95 Respiratory 16 Rate Blood Pressure 139/95 H O2 Saturation 96 Oxygen O2 Source Room air PD MEDICAL DECISION MAKING - ED course Complexity details: considered differential, d/w patient ED course: In accordance with the [facility] clinical policy from October 2012, this patient has asymptomatic elevated blood pressure without evidence of acute target organ injury. There are also no signs of acute stroke, cardiac ischemia, pulmonary edema, encephalopathy or acute congestive heart failure. Therefore the patient will be referred to their primary care provider for follow-up of their asymptomatic hypertension. Patient counseled regarding signs and symptoms for which I believe and urgent re-evaluation would be necessary. Patient with good understanding of and agreement to plan and is comfortable going home at this time This document was made in part using voice recognition software. While efforts are made to proofread this document, sound alike and grammatical errors may occur. Departure - Departure Disposition: 01 Home, Self Care Clinical Impression: Hypertension Qualifiers: Hypertension type: unspecified Qualified Code(s): I10 - Essential (primary) hypertension Condition: Good Instructions: ED HTN Established Follow-Up: Fatuma Penn ARNP [Primary Care Provider] - Within 1 week Comments: Please continue your medications at home. Please follow-up with your doctor for further care. Return if you worsen. Your blood pressure is 139/95 here tonight. Discharge Date/Time: 06/14/22 17:31
== END 2022-06-14 17:31 | disposition home or self-care (01) ==
LOC: ED 16:51
DX: I10 Essential (primary) hypertension (principal)
CPT/HCPCS: 99281; 99283

== ENCOUNTER 2022-07-22 18:23 | Emergency (ER) | payer MEDICAID ==
[2022-07-22 18:35] VITALS: BP 159/84
[2022-07-22] MEDS ORDERED: oxyCODONE/ACET 5/325 Prepack 4 PO STA (18:44)
[2022-07-22] MEDS ORDERED: predniSONE 20 MG TABLET PO STA (18:44)
--- NOTE | 2022-07-22 18:46 | ED Physician Documentation ---
PD HPI BACK PAIN - Stated complaint Stated Complaint: BACK PX - Chief complaint Chief Complaint: Back Pain - History obtained from History obtained from: Patient - Additional information Additional information: 37-year-old gentleman with history of psoriasis and autoimmune skin disease has had 2 weeks of low back pain. There was no specific injury but he does lift a lot at work. He has a history of a herniated disc but a long time ago. More recently has had some shooting pain and numbness in the left anterior thigh. No saddle anesthesia, incontinence or fevers. Review of Systems Constitutional: denies: Fever, Chills Nose: reports: Reviewed and negative Throat: reports: Reviewed and negative Cardiac: reports: Reviewed and negative Respiratory: reports: Reviewed and negative PD PAST MEDICAL HISTORY - Past Medical History Cardiovascular: Deep vein thrombosis Respiratory: None Neuro: None Endocrine/Autoimmune: None Psych: ADD/ADHD - Past Surgical History Past Surgical History: Yes - Present Medications Home Medications: Ambulatory Orders Medication Instructions Recorded Confirmed Rivaroxaban [Xarelto] 15 mg PO BID #42 tablet 02/09/21 07/22/22 Albuterol Sulf [Ventolin Hfa 2 - 3 puffs INH QID PRN 14 Days #1 02/25/22 07/22/22 Inhaler] inhaler lisinopriL [Lisinopril] 20 mg PO DAILY 02/25/22 07/22/22 Oxycodone HCl/Acetaminophen 1 - 2 each PO Q6H PRN #14 tablet 07/22/22 [Percocet 5-325 mg Tablet] predniSONE [Deltasone] 20 mg PO [id number] #21 tab 07/22/22 - Allergies Allergies/Adverse Reactions: Allergies Allergy/AdvReac Type Severity Reaction Status Date / Time Penicillins Allergy Edema Verified 07/22/22 18:35 - Social History Does the pt smoke?: No Smoking Status: Never smoker Does the pt drink ETOH?: No Does the pt have substance abuse?: No - Immunizations Immunizations are current?: Yes - POLST Patient has POLST: No PD ED PE NORMAL - Vitals Vital signs reviewed: Yes - General General: Alert and oriented X 3, No acute distress - Abdomen Abdomen: Normal bowel sounds, Soft, Non tender - Back Back: No CVA TTP, No spinal TTP - Derm Derm: Normal color, Warm and dry - Extremities Extremities: Other (The patient has equal and normal Achilles and patellar reflexes bilaterally. Normal sensation in all areas of the legs. Patient denies saddle anesthesia. Normal strength in flexion-extension at the ankles, knees, and flexion of the hips.) - Neuro Neuro: Alert and oriented X 3, Normal speech Results - Vitals Vitals: Vital Signs - 24 hr 07/22/22 18:29 Temperature 36.3 C L Heart Rate 82 Respiratory 18 Rate Blood Pressure 159/84 H O2 Saturation 94 Oxygen O2 Source Room air PD MEDICAL DECISION MAKING - ED course ED course: He has numbness in the left quad but I am not able to corroborate that on exam, his lower extremity neuro exam is normal. That said most likely is a radiculopathy. Given where he points to the numbness though could also be meralgia paresthetica combined with back pain. We will start steroids and pain management pending follow-up. He has both psoriasis as well as another autoimmune disease of the skin, discussed with him that it is possible that these are related to his back issues as well and recommended PCP referral to [facility]. Departure - Departure Disposition: Home, Self Care Clinical Impression: Back pain Condition: Good Record reviewed to determine appropriate education?: Yes Instructions: ED Neck Back Pain General, ED Sciatica Prescriptions: predniSONE [Deltasone] 20 mg PO [id number] #21 tab Oxycodone HCl/Acetaminophen [Percocet 5-325 mg Tablet] 1 - 2 each PO Q6H PRN #14 tablet PRN Reason: pain Comments: Talk with your doctor about a referral to a [employer]person [facility] [employer] for work-up of autoimmune disease which could be related to your back pain. Also if symptoms are persistent, talk with your primary care physician about physical therapy and subsequently an MRI of your back if symptoms are ongoing and unrelenting. Return for new or worsening symptoms. I [facility] in [place]. I am prescribing a short course of narcotic pain medication for you. These are potentially dangerous and addictive medications that should be used carefully. These medications may constipate you. Take an vbwa-ssz-amxlqmv stool softener (docusate) twice daily with plenty of water while taking these medications. If you go 24 hours without a bowel movement, take ytnd-hxl-djzohks miralax, per package instructions. Do not drink or drive while taking these medications. If you received narcotic or sedating medications while in the emergency department, do not drive for 24 hours. Store this medication in a safe, secure place and out of reach of children. It is a violation of federal law to give or sell this medication to another person or to use in a manner other than prescribed. The ED will not refill narcotic prescriptions, including prescriptions lost or stolen. To dispose of unwanted medications: 1. [facility] at [address] in [place] has a medication drop box. They accept prescription medications (in pill form) Sunday through Sunday 9:00 a.m. to 5:00 p.m. 2. The [facility] Police Department accepts prescription medications (in pill form only) for disposal year round. Call for more information. 3. Contact the [facility] for the next [facility] sponsored prescription drug collection event. , x7310, or x7310; Note that many narcotic pain relievers also contain Tylenol/acetaminophen. Please ensure that your total dose of acetaminophen from all sources does not exceed 3 g (3000 mg) per day.
== END 2022-07-22 19:04 | disposition home or self-care (01) ==
LOC: ED 18:23
DX: M54.50 Low back pain, unspecified (principal); D89.89 Other specified disorders involving the immune mechanism, not elsewhere classified
CPT/HCPCS: 99282; 99284; J7512

== ENCOUNTER 2022-08-01 11:14 | Outpatient (CLI) | payer MEDICAID ==
--- NOTE | 2022-08-01 16:54 | XRAY Report ---
PROCEDURE: Lumbar Spine Complete INDICATIONS: LUMBAR RADICULOPATHY TECHNIQUE: 4 views of the lumbar spine were acquired. COMPARISON: None. FINDINGS: Bones: 5 pwx-fuw-oyzzavx vertebrae are present. There is normal bony alignment. No vertebral body compression fractures. No suspicious bony lesions. Mild multilevel endplate osteophyte formation. Soft tissues: Overlying bowel gas pattern is normal. No suspicious soft tissue calcifications. IMPRESSION: Multilevel degenerative disc disease. No acute fracture. No osseous lesion. If symptoms and/or clinical suspicion for pathology continue, further assessment with repeat plain films, or adva nced imaging (e.g., CT, MRI, or bone scan) is recommended for further assessment. Reviewed by: Kate Garvey MD on 08/01/2022 4:53 PM PST Approved by: Kate Garvey MD on 08/01/2022 4:53 PM PST Station ID: [id number]
== END 2022-08-01 11:15 | disposition home or self-care (01) ==
LOC: DI.N 11:14
PROVIDERS: ATTEND Nurse Practitioner Family
DX: G57.10 Meralgia paresthetica, unspecified lower limb (principal); M47.26 Other spondylosis with radiculopathy, lumbar region; I10 Essential (primary) hypertension; E66.9 Obesity, unspecified; R06.83 Snoring
CPT/HCPCS: 36415; 80053; 80061; 83036; 83721; 84443; 85025

== ENCOUNTER 2022-08-01 11:18 | Outpatient (CLI) | payer MEDICAID ==
[2022-08-01 18:31] LABS: BASOPHILS % (AUTO) 0.3 %; EOSINOPHILS # (AUTO) 0.1 10^3/uL (0.0-0.7); EOSINOPHILS % (AUTO) 0.7 %; HGB - HEMOGLOBIN 15.2 g/dL (14.0-18.0); LYMPHOCYTES # (AUTO) 1.8 10^3/uL (1.5-3.5); MEAN CORPUSCULAR HEMOGLOBIN 27.1 pg (27.0-31.0); MEAN CORPUSCULAR HGB CONC 31.7 g/dL (32.0-36.0); MEAN CORPUSCULAR VOLUME 85.6 fL (80.0-94.0); MEAN PLATELET VOLUME 9.5 fL (7.4-11.4); MONOCYTES # (AUTO) 0.6 10^3/uL (0.0-1.0); MONOCYTES % (AUTO) 6.1 %; NEUTROPHILS # (AUTO) 7.4 10^3/uL (1.5-6.6); NEUTROPHILS % (AUTO) 74.3 %; PLT - PLATELET COUNT 224 10^3/uL (130-450); RED BLOOD COUNT 5.61 10^6/uL (4.70-6.10); RED CELL DISTRIBUTION WIDTH 13.7 % (12.0-15.0); WHITE BLOOD COUNT 9.9 x10^3/uL (4.8-10.8)
[2022-08-01 18:52] LABS: ALBUMIN 4.3 g/dL (3.2-5.5); ALBUMIN/GLOBULIN RATIO 1.2 (1.0-2.2); ALKALINE PHOSPHATASE 68 IU/L (42-121); ALT ALANINE AMINOTRANSFERASE 53 IU/L (10-60); AST ASPARTATE AMINOTRANSFERASE 28 IU/L (10-42); BILIRUBIN,TOTAL 0.7 mg/dL (0.2-1.0); BUN - BLOOD UREA NITROGEN 26 mg/dL (6-20); CALCIUM 9.8 mg/dL (8.5-10.3); CARBON DIOXIDE - CO2 29 mmol/L (21-32); CHLORIDE 99 mmol/L (101-111); CHOLESTEROL 298 mg/dL; GFR - MDRD 102 (>89); GLUCOSE 120 mg/dL (70-100); HDL CHOLESTEROL 60 mg/dL; LDL CHOLESTEROL,CALCULATED 183 mg/dL; LDL/HDL RATIO 3.1 (<3.6); POTASSIUM 4.5 mmol/L (3.5-5.0); SODIUM 136 mmol/L (135-145); TOTAL PROTEIN 7.8 g/dL (6.7-8.2); TRIGLYCERIDES 273 mg/dL; VLDL CHOLESTEROL 55 mg/dL
[2022-08-01 18:57] LABS: THYROID STIMULATING HORMONE 3.27 uIU/mL (0.34-5.60)
[2022-08-01 20:27] LABS: ESTIMATED AVERAGE GLUCOSE 140 mg/dL (70-100); HEMOGLOBIN A1c% 6.5 % (4.27-6.07)
== END 2022-08-01 11:19 | disposition home or self-care (01) ==
LOC: LAB.N 11:18
PROVIDERS: ATTEND Nurse Practitioner Family
DX: I10 Essential (primary) hypertension (principal); E66.9 Obesity, unspecified; R06.83 Snoring
CPT/HCPCS: 36415; 80053; 80061; 83036; 83721; 84443; 85025

== ENCOUNTER 2022-08-04 17:52 | Emergency (ER) | payer MEDICAID ==
[2022-08-04] MEDS ORDERED: predniSONE 20 MG TABLET PO STA (18:27)
[2022-08-04] MEDS ORDERED: KETOROLAC 60 MG/2 ML VIAL IM STA (18:27)
[2022-08-04] MEDS ORDERED: oxyCODONE 5 MG TABLET PO STA (18:27)
--- NOTE | 2022-08-04 18:33 | ED Physician Documentation ---
History of Present Illness - Stated complaint Stated Complaint: LOWER BACK PAIN - Chief complaint Chief Complaint: Back Pain - History obtained from History obtained from: Patient - History of Present Illness Timing: Other (several months) Pain level max: 7 Pain level now: 7 - Additonal information Additional information: Patient is a 37-year-old male who has had intermittent back pain for the past several months. His doctor placed him on gabapentin but he is having increased pain today. Worse with movement, better with rest. Pain radiates down the left leg. Has been seen here previously and was placed on steroids and pain medication which she states helped. No fevers. No chills. No loss of bowel or bladder control. No IV drug use. No numbness or tingling. Review of Systems Constitutional: denies: Fever, Chills Respiratory: denies: Cough GI: denies: Vomiting, Diarrhea : denies: Unable to Void, Incontinent Skin: denies: Rash Musculoskeletal: denies: Neck pain Neurologic: denies: Focal weakness, Numbness PD PAST MEDICAL HISTORY - Past Medical History Cardiovascular: Deep vein thrombosis Respiratory: None Neuro: None Endocrine/Autoimmune: None Psych: ADD/ADHD - Past Surgical History Past Surgical History: Yes - Present Medications Home Medications: Ambulatory Orders Medication Instructions Recorded Confirmed Albuterol Sulf [Ventolin Hfa 2 - 3 puffs INH QID PRN 14 Days #1 02/25/22 07/22/22 Inhaler] inhaler lisinopriL [Lisinopril] 20 mg PO DAILY 02/25/22 07/22/22 Oxycodone HCl/Acetaminophen 1 - 2 each PO Q6H PRN #14 tablet 07/22/22 [Percocet 5-325 mg Tablet] predniSONE [Deltasone] 20 mg PO [id number] #21 tab 07/22/22 Meloxicam [Mobic] 7.5 mg PO BID PRN #20 tablet 08/04/22 Oxycodone HCl/Acetaminophen 1 - 2 each PO Q6H PRN #14 tablet 08/04/22 [Percocet 5-325 mg Tablet] predniSONE [Deltasone] 10 mg PO [id number] #42 tab 08/04/22 - Allergies Allergies/Adverse Reactions: Allergies Allergy/AdvReac Type Severity Reaction Status Date / Time Penicillins Allergy Edema Verified 07/22/22 18:35 - Social History Does the pt smoke?: No Smoking Status: Never smoker Does the pt drink ETOH?: No Does the pt have substance abuse?: No - Immunizations Immunizations are current?: Yes - POLST Patient has POLST: No PD ED PE NORMAL - Vitals Vital signs reviewed: Yes - General General: Alert and oriented X 3, No acute distress, Well developed/nourished - HEENT HEENT: Moist mucous membranes - Neck Neck: Supple, no meningeal sign - Cardiac Cardiac: RRR, Strong equal pulses - Respiratory Respiratory: No respiratory distress, Clear bilaterally - Abdomen Abdomen: Soft, Non tender, Non distended - Back Back: No spinal TTP (No midline tenderness to palpation or percussion. No step- off or deformity) - Derm Derm: Warm and dry - Extremities Extremities: No edema - Neuro Neuro: Alert and oriented X 3, No motor deficit, No sensory deficit, Other (Normal bilateral lower extremity patellar and ankle jerk reflexes. Normal great toe extension bilaterally. no saddle anesthesia) - Psych Psych: Normal mood, Normal affect Results - Vitals Vitals: Vital Signs - 24 hr 08/04/22 08/04/22 18:06 19:16 Temperature 36.8 C 36.9 C Heart Rate 83 80 Respiratory 18 16 Rate Blood Pressure 132/90 H 150/99 H O2 Saturation 95 95 Oxygen O2 Source Room air PD MEDICAL DECISION MAKING - ED course Complexity details: re-evaluated patient, considered differential (No cauda equina, no spinal epidural abscess, no fracture, no aortic dissection or evidence of aneursym rupture), d/w patient ED course: Patient with what appears to be chronic low back pain with sciatica. We will place on pain medication, steroids and anti-inflammatories for home and have him follow-up with his doctor. No evidence of cauda equina, epidural abscess or indication for emergent imaging. Ambulating well. Patient counseled regarding signs and symptoms for which I believe and urgent re-evaluation would be necessary. Patient with good understanding of and agreement to plan and is comfortable going home at this time This document was made in part using voice recognition software. While efforts are made to proofread this document, sound alike and grammatical errors may occur. Departure - Departure Disposition: 01 Home, Self Care Clinical Impression: Sciatica Qualifiers: Laterality: left Qualified Code(s): M54.32 - Sciatica, left side Back pain Qualifiers: Back pain location: low back pain Chronicity: acute Back pain laterality: left Sciatica presence: with sciatica Sciatica laterality: sciatica of left side Qualified Code(s): M54.42 - Lumbago with sciatica, left side Condition: Good Instructions: ED Sciatica Follow-Up: Fatuma Penn ARNP [Primary Care Provider] - Within 1 week Prescriptions: predniSONE [Deltasone] 10 mg PO [id number] #42 tab Meloxicam [Mobic] 7.5 mg PO BID PRN #20 tablet PRN Reason: Pain Oxycodone HCl/Acetaminophen [Percocet 5-325 mg Tablet] 1 - 2 each PO Q6H PRN #14 tablet PRN Reason: pain Comments: Please follow-up with your doctor for further care. Please return if you worsen. Your prescriptions were sent to [facility] in [place]. I am prescribing a short course of narcotic pain medication for you. These are potentially dangerous and addictive medications that should be used carefully. These medications may constipate you. Take an ivgi-xko-pflmcgx stool softener (docusate) twice daily with plenty of water while taking these medications. If you go 24 hours without a bowel movement, take inyr-spk-msdatyo miralax, per package instructions. Do not drink or drive while taking these medications. If you received narcotic or sedating medications while in the emergency department, do not drive for 24 hours. Store this medication in a safe, secure place and out of reach of children. It is a violation of federal law to give or sell this medication to another person or to use in a manner other than prescribed. The ED will not refill narcotic prescriptions, including prescriptions lost or stolen. To dispose of unwanted medications: 1. [facility] at [address] in [place] has a medication drop box. They accept prescription medications (in pill form) Sunday through Sunday 9:00 a.m. to 5:00 p.m. 2. The [facility] Police Department accepts prescription medications (in pill form only) for disposal year round. Call for more information. 3. Contact the [facility] for the next [facility] sponsored prescription drug collection event. , [id number], or [phone]; Discharge Date/Time: 08/04/22 19:18
[2022-08-04 19:18] VITALS: BP 150/99
== END 2022-08-04 19:18 | disposition home or self-care (01) ==
LOC: ED 17:52
DX: M54.42 Lumbago with sciatica, left side (principal)
CPT/HCPCS: 96372; 99283; 99284; A9270; J7512

== ENCOUNTER 2022-09-23 10:02 | Emergency (ER) | payer MEDICAID ==
[2022-09-23 10:21] VITALS: BP 150/90
--- NOTE | 2022-09-23 12:13 | ED Physician Documentation ---
PD HPI BACK PAIN - Stated complaint Stated Complaint: BACK PX - Chief complaint Chief Complaint: Back Pain - History obtained from History obtained from: Patient - Additional information Additional information: 37-year-old gentleman with chronic back pain presents with with flare that been going on for about the last week. It is in the left low back with some chronic numbness in the left leg. No new numbness, no saddle anesthesia, fevers, or incontinence. Review of Systems Constitutional: denies: Fever, Myalgias Throat: reports: Reviewed and negative Respiratory: reports: Reviewed and negative PD PAST MEDICAL HISTORY - Past Medical History Cardiovascular: Deep vein thrombosis Respiratory: None Neuro: None Endocrine/Autoimmune: None Psych: ADD/ADHD - Past Surgical History Past Surgical History: Yes - Present Medications Home Medications: Ambulatory Orders Medication Instructions Recorded Confirmed Albuterol Sulf [Ventolin Hfa 2 - 3 puffs INH QID PRN 14 Days #1 02/25/22 07/22/22 Inhaler] inhaler lisinopriL [Lisinopril] 20 mg PO DAILY 02/25/22 07/22/22 Oxycodone HCl/Acetaminophen 1 - 2 each PO Q6H PRN #14 tablet 07/22/22 [Percocet 5-325 mg Tablet] predniSONE [Deltasone] 20 mg PO [id number] #21 tab 07/22/22 Meloxicam [Mobic] 7.5 mg PO BID PRN #20 tablet 08/04/22 Oxycodone HCl/Acetaminophen 1 - 2 each PO Q6H PRN #14 tablet 08/04/22 [Percocet 5-325 mg Tablet] predniSONE [Deltasone] 10 mg PO [id number] #42 tab 08/04/22 Cyclobenzaprine [Flexeril] 10 mg PO TID PRN #20 tablet 09/23/22 Oxycodone HCl/Acetaminophen 1 - 2 each PO Q6H PRN #14 tablet 09/23/22 [Percocet 5-325 mg Tablet] - Allergies Allergies/Adverse Reactions: Allergies Allergy/AdvReac Type Severity Reaction Status Date / Time Penicillins Allergy Edema Verified 09/23/22 10:21 - Social History Does the pt smoke?: No Smoking Status: Never smoker Does the pt drink ETOH?: No Does the pt have substance abuse?: No - Immunizations Immunizations are current?: Yes - POLST Patient has POLST: No PD ED PE NORMAL - Vitals Vital signs reviewed: Yes - General General: Alert and oriented X 3, No acute distress - Back Back: No spinal TTP - Extremities Extremities: Other (The patient has equal and normal Achilles and patellar reflexes bilaterally. Normal sensation in all areas of the legs. Patient denies saddle anesthesia. Normal strength in flexion-extension at the ankles, knees, and flexion of the hips.) - Neuro Neuro: Alert and oriented X 3, Normal speech Results - Vitals Vitals: Vital Signs - 24 hr 09/23/22 10:18 Temperature 36.3 C L Heart Rate 74 Respiratory 18 Rate Blood Pressure 150/90 H O2 Saturation 96 Oxygen O2 Source Room air PD Medical Decision Making - ED course ED course: This patient has seemingly uncomplicated musculoskeletal back pain. The patient has no "red flags." Specifically denies IV drug use, fevers, incontinence, saddle anesthesia. Spinal epidural abscess was considered, given that the patient has no fever, is not diabetic, has no spinal tenderness, does not use IV drugs, and has no bilateral neurologic symptoms, the diagnosis of spinal epidural abscess is considered exceedingly unlikely. I am prescribing a short course of short-acting opioid pain medication for this patient. I have reviewed the patients [employer] and no concerning findings were not ed. I have discussed that the opioids are for short term therapy only, and will not be refilled from the ED. Departure - Departure Disposition: 01 Home, Self Care Clinical Impression: Sciatica Qualifiers: Laterality: left Qualified Code(s): M54.32 - Sciatica, left side Condition: Good Record reviewed to determine appropriate education?: Yes Instructions: ED Sciatica Prescriptions: Cyclobenzaprine [Flexeril] 10 mg PO TID PRN #20 tablet PRN Reason: Spasms Oxycodone HCl/Acetaminophen [Percocet 5-325 mg Tablet] 1 - 2 each PO Q6H PRN #14 tablet PRN Reason: pain Comments: I sent your prescriptions electronically to [facility] in [place]. Call your doctor to arrange a follow-up appointment, make the next available appointment. In the interim, return anytime if worse or if new symptoms develop. I am prescribing a short course of narcotic pain medication for you. These are potentially dangerous and addictive medications that should be used carefully. These medications may constipate you. Take an tgqt-koe-qsvhcpr stool softener (docusate) twice daily with plenty of water while taking these medications. If you go 24 hours without a bowel movement, take yicq-upn-mcwemix miralax, per package instructions. Do not drink or drive while taking these medications. If you received narcotic or sedating medications while in the emergency department, do not drive for 24 hours. Store this medication in a safe, secure place and out of reach of children. It is a violation of federal law to give or sell this medication to another person or to use in a manner other than prescribed. The ED will not refill narcotic prescriptions, including prescriptions lost or stolen. To dispose of unwanted medications: 1. [facility] at [address] in [place] has a medication drop box. They accept prescription medications (in pill form) Sunday through Sunday 9:00 a.m. to 5:00 p.m. 2. The [facility] accepts prescription medications (in pill form only) for disposal year round. Call for more information. 3. Contact the [facility] for the next [facility] sponsored prescription drug collection event. , [phone], or [phone]; Note that many narcotic pain relievers also contain Tylenol/acetaminophen. Please ensure that your total dose of acetaminophen from all sources does not exceed 3 g (3000 mg) per day.
== END 2022-09-23 12:18 | disposition home or self-care (01) ==
LOC: ED 10:02
DX: M54.32 Sciatica, left side (principal)
CPT/HCPCS: 99282

== ENCOUNTER 2022-11-02 10:20 | Outpatient (CLI) | payer MEDICAID ==
[2022-11-02 12:25] LABS: BUN - BLOOD UREA NITROGEN 21 mg/dL (6-20); CALCIUM 9.6 mg/dL (8.5-10.3); CARBON DIOXIDE - CO2 29 mmol/L (21-32); CHLORIDE 103 mmol/L (101-111); CHOL/HDL RATIO 5.7 (<5.0); CHOLESTEROL 239 mg/dL; CREATININE 0.9 mg/dL (0.6-1.2); GFR - MDRD 116 (>89); GLUCOSE 101 mg/dL (70-100); HDL CHOLESTEROL 42 mg/dL; LDL CHOLESTEROL,CALCULATED 145 mg/dL; LDL/HDL RATIO 3.5 (<3.6); POTASSIUM 4.2 mmol/L (3.5-5.0); SODIUM 139 mmol/L (135-145); TRIGLYCERIDES 262 mg/dL; VLDL CHOLESTEROL 52 mg/dL
[2022-11-02 13:19] LABS: ESTIMATED AVERAGE GLUCOSE 143 mg/dL (70-100); HEMOGLOBIN A1c% 6.6 % (4.27-6.07)
== END 2022-11-02 10:21 | disposition home or self-care (01) ==
LOC: LAB.N 10:20
PROVIDERS: ATTEND Nurse Practitioner Family
DX: I10 Essential (primary) hypertension (principal)
CPT/HCPCS: 36415; 80048; 80061; 83036; 83721

== ENCOUNTER 2023-01-29 05:33 | Emergency (ER) | payer MEDICAID ==
[2023-01-29 05:42] VITALS: BP 145/79
[2023-01-29] MEDS ORDERED: IBUPROFEN 800 MG TABLET PO STA (05:56)
[2023-01-29] MEDS ORDERED: LIDOCAINE PATCH 5% TOP STA (05:56)
--- NOTE | 2023-01-29 05:59 | ED Physician Documentation ---
PD HPI BACK PAIN - Stated complaint Stated Complaint: RIGHT HIP PAIN - Chief complaint Chief Complaint: Ext Problem - History obtained from History obtained from: Patient - Additional information Additional information: Patient is a 37-year-old male presenting for evaluation of right lower back pain that he woke up with this morning. Patient describes it as a shooting pain that is worse with certain movements. 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 Pain does not radiate elsewhere such as to the abdomen or groin or down the right leg. He denies fever, IV drug use, use of blood thinners, bowel or bladder incontinence, saddle anesthesia.Shoes and has had prior episodes of left-sided sciatica.He does have a history of chronic Review of Systems Constitutional: denies: Fever Cardiac: denies: Chest pain / pressure Respiratory: denies: Dyspnea GI: denies: Abdominal Pain : denies: Dysuria, Incontinent, Hematuria Musculoskeletal: reports: Back pain Neurologic: denies: Headache PD PAST MEDICAL HISTORY - Past Medical History Past Medical History: Yes Cardiovascular: Deep vein thrombosis Respiratory: None Neuro: None Endocrine/Autoimmune: None Psych: ADD/ADHD Musculoskeletal: Chronic back pain, Other Other Past Medical History: Degenerative Disc disease in lower back;. Sciatic Nerve pain in L hip - Past Surgical History Past Surgical History: Yes - Present Medications Home Medications: Ambulatory Orders Medication Instructions Recorded Confirmed Albuterol Sulf [Ventolin Hfa 2 - 3 puffs INH QID PRN 14 Days #1 02/25/22 01/29/23 Inhaler] inhaler lisinopriL [Lisinopril] 20 mg PO DAILY 02/25/22 01/29/23 Ibuprofen [Motrin] 1 tablet PO Q8H PRN #30 tablet 01/29/23 Lidocaine Patch 5% [Lidoderm Patch] 1 patch TOP DAILY PRN #10 patch 01/29/23 Rosuvastatin Calcium [Crestor] 10 mg PO DAILY 01/29/23 01/29/23 metFORMIN [Glucophage] 1 tab PO BID 01/29/23 01/29/23 - Allergies Allergies/Adverse Reactions: Allergies Allergy/AdvReac Type Severity Reaction Status Date / Time Penicillins Allergy Edema Verified 01/29/23 05:43 - Social History Does the pt smoke?: No Smoking Status: Never smoker Does the pt drink ETOH?: No Does the pt have substance abuse?: No - Immunizations Immunizations are current?: Yes - POLST Patient has POLST: No PD ED PE NORMAL - General General: Alert and oriented X 3, No acute distress, Well developed/nourished - HEENT HEENT: Atraumatic - Neck Neck: Supple, no meningeal sign - Cardiac Cardiac: RRR, No murmur - Respiratory Respiratory: No respiratory distress, Clear bilaterally - Abdomen Abdomen: Soft, Non tender, Non distended - Back Back: No spinal TTP - Extremities Extremities: Other (Normal range of motion at right hip) - Neuro Neuro: Alert and oriented X 3, No motor deficit, No sensory deficit, Normal speech PD ED PE EXPANDED - Back Back visual: 1 - tenderness Results - Vitals Vitals: Vital Signs - 24 hr 01/29/23 05:38 Heart Rate 73 Respiratory 18 Rate Blood Pressure 145/79 H O2 Saturation 96 Oxygen O2 Source Room air PD Medical Decision Making - ED course ED course: Patient is a 37-year-old male presenting for evaluation of atraumatic right- sided low back pain. He is ambulatory with stable vital signs. He has no red flag signs or symptoms in regards to his back pain to suggest cauda equina or epidural abscess or hematoma.He does have a region of tenderness in the right lower back. No radiating symptoms to suggest radiculopathy. No urinary or abdominal symptoms to suggest kidney stone.At this time I do not feel that emergent imaging is indicated. We discussed continued supportive care with anti-inflammatories, lidocaine patch, ice versus heat and rest. Patient is counseled on need for close follow-up with PCM as well as advised on concerning symptoms to return for. Departure - Departure Disposition: 01 Home, Self Care Clinical Impression: Low back strain Condition: Stable Instructions: ED Sprain Strain Lumbar Prescriptions: Lidocaine Patch 5% [Lidoderm Patch] 1 patch TOP DAILY PRN #10 patch PRN Reason: pain Ibuprofen [Motrin] 1 tablet PO Q8H PRN #30 tablet PRN Reason: PAIN &/OR FEVER Comments: You appear to have a muscle strain of your lower back.I would recommend anti- inflammatories, ice versus heat, rest, lidocaine patches and would expect this to get better over the next several days. I would recommend close follow-up with your primary care provider. If you develop any worsening symptoms such as numbness, weakness, trouble controlling bowel or bladder function or have any new concerns please consider return to the emergency department. I have sent prescriptions to [facility] in [place]. You can also try the muscle relaxer that you already have at home. However if you are using this medication I would not recommend driving or operating any heavy machinery.
== END 2023-01-29 06:10 | disposition home or self-care (01) ==
LOC: ED 05:33
DX: S39.012A Strain of muscle, fascia and tendon of lower back, initial encounter (principal); X58.XXXA Exposure to other specified factors, initial encounter; Z79.899 Other long term (current) drug therapy
CPT/HCPCS: 99282; 99283; A9270

== ENCOUNTER 2023-03-18 06:49 | Emergency (ER) | payer MEDICAID ==
--- OUTSIDE RECORDS SUMMARY | 2023-03-18 07:05 | EXTERNAL MEDICAL SUMMARY RPT | Continuity of Care Document ---
Author Name Unknown Address [address] [place] [address] Phone Organization [place] Address [address] [place] [address] Phone Care Team Providers Care [employer] Worker Name Role Phone Reji Hurst Unavailable Unavailable Allergies and Intolerances date description facility type (no date) No Known Drug Allergies [facility] ( unknown) Medications date description facility 2023-02-06 00:00 [facility] Problems date description facility 2023-02-06 00:00 Acute carpal tunnel syndrome Is [facility] 2023-02-06 00:00 Acute hip pain [facility] Results/Labs test date author facility value unit interpretation Result panel 1 (unknown) (no date) (unknown) (unknown) (no value) (units unknown) (unknown) (unknown) (no date) (unknown) (unknown) 02/06/23 (units unknown) (unknown) (unknown) (no date) (unknown) (unknown) 20:12 (units unknown) (unknown) (unknown) (no date) (unknown) (unknown) Age/Sex: 37 / M (uni ts unknown) (unknown) (unknown) (no date) (unknown) (unknown) Allergies (units unknown) (unknown) (unknown) (no date) (unknown) (unknown) Allergy/AdvRea c Type Severity Reaction Status Date / Time (units unknown) (unknown) (unknown) (no date) (unknown) (unknown) Blood Pressure 139/98 H 02/06/23 20:12 (units unknown) (unknown) (unknown) (no date) (unknown) (unknown) Blood Pressure 139/98 H (units unknown) (unknown) (unknown) (no date) (unknown) (unknown) Chief complain t: Extremity Problem,Nontraumatic (units unknown) (unknown) (unknown) (no date) (unknown) (unknown) Course (units unknown) (unknown) (unknown) (no date) (unknown) (unknown) : 6 Acct:[id number] (units unknown) (unknown) (unknown) (no date) (unknown) (unknown) Date of Servic e: 02/06/23 (units unknown) (unknown) (unknown) (no date) (unknown) (unknown) Departure (units unknown) (unknown) (unknown) (no date) (unknown) (unknown) Discharge Plan (unit s unknown) (unknown) (unknown) (no date) (unknown) (unknown) ER Physician: Reji Hurst D.O. (units unknown) (unknown) (unknown) (no date) (unknown) (unknown) Emergency Report (un its unknown) (unknown) (unknown) (no date) (unknown) (unknown) Exam (units unknown) (unknown) (unknown) (no date) (unknown) (unknown) General (units unknown) (unknown) (unknown) (no date) (unknown) (unknown) HPI - General Adult (units unknown) (unknown) (unknown) (no date) (unknown) (unknown) Initial Vital Signs (units unknown) (unknown) (unknown) (no date) (unknown) (unknown) Initial Vital Signs: (units unknown) (unknown) (unknown) (no date) (unknown) (unknown) [place] [address] (units unknown) (unknown) (unknown) (no date) (unknown) (unknown) Mode of arriva l: Ambulatory (units unknown) (unknown) (unknown) (no date) (unknown) (unknown) No Known Drug Allergies Allergy Verified 02/06/23 20:17 (units unknown) (unknown) (unknown) (no date) (unknown) (unknown) Oxygen Deliver y Method Room Air 02/06/23 20:12 (units unknown) (unknown) (unknown) (no date) (unknown) (unknown) Oxygen Deliver y Method Room Air (units unknown) (unknown) (unknown) (no date) (unknown) (unknown) Patient History (uni ts unknown) (unknown) (unknown) (no date) (unknown) (unknown) Patient: Gokul WadeSerg Ferro M (units unknown) (unknown) (unknown) (no date) (unknown) (unknown) Pulse Oximetry 96 02/06/23 20:12 (units unknown) (unknown) (unknown) (no date) (unknown) (unknown) Pulse Oximetry 96 (u nits unknown) (unknown) (unknown) (no date) (unknown) (unknown) Pulse Rate 97 H 02/06/23 20:12 (units unknown) (unknown) (unknown) (no date) (unknown) (unknown) Pulse Rate 97 H (uni ts unknown) (unknown) (unknown) (no date) (unknown) (unknown) R#: [id number] (unit s unknown) (unknown) (unknown) (no date) (unknown) (unknown) Referrals: (units unknown) (unknown) (unknown) (no date) (unknown) (unknown) Related Data (units unknown) (unknown) (unknown) (no date) (unknown) (unknown) Respiratory Ra te 15 02/06/23 20:12 (units unknown) (unknown) (unknown) (no date) (unknown) (unknown) Respiratory Rate 15 (units unknown) (unknown) (unknown) (no date) (unknown) (unknown) Signed By: (units unknown) (unknown) (unknown) (no date) (unknown) (unknown) Smoking Status : Unknown if ever smoked (units unknown) (unknown) (unknown) (no date) (unknown) (unknown) Social History (unit s unknown) (unknown) (unknown) (no date) (unknown) (unknown) Source: patient (uni ts unknown) (unknown) (unknown) (no date) (unknown) (unknown) Stated complai nt: Swelling, hip pain (units unknown) (unknown) (unknown) (no date) (unknown) (unknown) Substance Use Type: does not use (units unknown) (unknown) (unknown) (no date) (unknown) (unknown) Temperature 98 .5 F 02/06/23 20:12 (units unknown) (unknown) (unknown) (no date) (unknown) (unknown) Temperature 98.5 F ( units unknown) (unknown) (unknown) (no date) (unknown) (unknown) Time Seen by Harris mckinley: 02/06/23 20:22 (units unknown) (unknown) (unknown) (no date) (unknown) (unknown) Vital Signs - 8 hr ( units unknown) (unknown) (unknown) (no date) (unknown) (unknown) Vital Signs (units unknown) (unknown) (unknown) (no date) (unknown) (unknown) Vital signs: (units unknown) (unknown) (unknown) (no date) (unknown) (unknown) Chicho Penn, [employer] [Primary Care Provider] (units unknown) (unknown) (unknown) (no date) (unknown) (unknown) alcohol intake frequency: holidays/special occasions only (units unknown) (unknown) Result panel 2 (unknown) (no date) (unknown) (unknown) (no value) (units unknown) (unknown) (unknown) (no date) (unknown) (unknown) *Please contin ue to take your regular medications as directed. (units unknown) (unknown) (unknown) (no date) (unknown) (unknown) *Please follow up with your primary care provider in 2-3 days, call for an (units unknown) (unknown) (unknown) (no date) (unknown) (unknown) *Return to [facility] rgency Department if you should have any new, worsening or (units unknown) (unknown) (unknown) (no date) (unknown) (unknown) *What to do: (units unknown) (unknown) (unknown) (no date) (unknown) (unknown) *You have been diagnosed with [ Carpal tunnel of your right wrist, likely lumbar (units unknown) (unknown) (unknown) (no date) (unknown) (unknown) 02/06/23 (units unknown) (unknown) (unknown) (no date) (unknown) (unknown) 20:12 02/06/23 (unit s unknown) (unknown) (unknown) (no date) (unknown) (unknown) 23:57 (units unknown) (unknown) (unknown) (no date) (unknown) (unknown) 37-year-old male (un its unknown) (unknown) (unknown) (no date) (unknown) (unknown) Activity Restrictions/Additiona l Instructions: (units unknown) (unknown) (unknown) (no date) (unknown) (unknown) Acute carpal t unnel syndrome, Acute hip pain (units unknown) (unknown) (unknown) (no date) (unknown) (unknown) Age/Sex: 37 / M (uni ts unknown) (unknown) (unknown) (no date) (unknown) (unknown) Allergies (units unknown) (unknown) (unknown) (no date) (unknown) (unknown) Allergy/AdvRea c Type Severity Reaction Status Date / Time (units unknown) (unknown) (unknown) (no date) (unknown) (unknown) Blood Pressure 139/98 H 02/06/23 20:12 (units unknown) (unknown) (unknown) (no date) (unknown) (unknown) Blood Pressure 139/98 H 144/76 H (units unknown) (unknown) (unknown) (no date) (unknown) (unknown) Chief complain t: Extremity Problem,Nontraumatic (units unknown) (unknown) (unknown) (no date) (unknown) (unknown) Clinical Impression: (units unknown) (unknown) (unknown) (no date) (unknown) (unknown) Course (units unknown) (unknown) (unknown) (no date) (unknown) (unknown) : 6 Acct:[id number] (units unknown) (unknown) (unknown) (no date) (unknown) (unknown) Date of Servic e: 02/06/23 (units unknown) (unknown) (unknown) (no date) (unknown) (unknown) Departure (units unknown) (unknown) (unknown) (no date) (unknown) (unknown) Discharge Plan (unit s unknown) (unknown) (unknown) (no date) (unknown) (unknown) ER Physician: Reji Hurst D.O. (units unknown) (unknown) (unknown) (no date) (unknown) (unknown) Emergency Report (un its unknown) (unknown) (unknown) (no date) (unknown) (unknown) Exam (units unknown) (unknown) (unknown) (no date) (unknown) (unknown) General (units unknown) (unknown) (unknown) (no date) (unknown) (unknown) HPI - General Adult (units unknown) (unknown) (unknown) (no date) (unknown) (unknown) HPI narrative: (unit s unknown) (unknown) (unknown) (no date) (unknown) (unknown) History of Pre sent Illness (units unknown) (unknown) (unknown) (no date) (unknown) (unknown) Initial Vital Signs (units unknown) (unknown) (unknown) (no date) (unknown) (unknown) Initial Vital Signs: (units unknown) (unknown) (unknown) (no date) (unknown) (unknown) Instructions: DI for Carpal Tunnel Syndrome (units unknown) (unknown) (unknown) (no date) (unknown) (unknown) [facility] [address] [place] [id number] (units unknown) (unknown) (unknown) (no date) (unknown) (unknown) Medication Instructions Recorded (units unknown) (unknown) (unknown) (no date) (unknown) (unknown) Mode of arriva l: Ambulatory (units unknown) (unknown) (unknown) (no date) (unknown) (unknown) New (units unknown) (unknown) (unknown) (no date) (unknown) (unknown) No Known Drug Allergies Allergy Verified 02/06/23 20:17 (units unknown) (unknown) (unknown) (no date) (unknown) (unknown) [place]] (units unknown) (unknown) (unknown) (no date) (unknown) (unknown) Oxygen Deliver y Method Room Air 02/06/23 20:12 (units unknown) (unknown) (unknown) (no date) (unknown) (unknown) Oxygen Deliver y Method Room Air Room Air (units unknown) (unknown) (unknown) (no date) (unknown) (unknown) Patient Dispos ition: Home (units unknown) (unknown) (unknown) (no date) (unknown) (unknown) Patient History (uni ts unknown) (unknown) (unknown) (no date) (unknown) (unknown) Patient: Gokul WadeSerg Riley (units unknown) (unknown) (unknown) (no date) (unknown) (unknown) Prescriptions: (unit s unknown) (unknown) (unknown) (no date) (unknown) (unknown) Previous Rx's (units unknown) (unknown) (unknown) (no date) (unknown) (unknown) Pulse Oximetry 96 02/06/23 20:12 (units unknown) (unknown) (unknown) (no date) (unknown) (unknown) Pulse Oximetry 96 95 (units unknown) (unknown) (unknown) (no date) (unknown) (unknown) Pulse Rate 97 H 02/06/23 20:12 (units unknown) (unknown) (unknown) (no date) (unknown) (unknown) Pulse Rate 97 H 72 ( units unknown) (unknown) (unknown) (no date) (unknown) (unknown) R#: [id number] (unit s unknown) (unknown) (unknown) (no date) (unknown) (unknown) Referrals: (units unknown) (unknown) (unknown) (no date) (unknown) (unknown) Related Data (units unknown) (unknown) (unknown) (no date) (unknown) (unknown) Respiratory Ra te 15 02/06/23 20:12 (units unknown) (unknown) (unknown) (no date) (unknown) (unknown) Respiratory Rate 15 (units unknown) (unknown) (unknown) (no date) (unknown) (unknown) Rx Instructions: (un its unknown) (unknown) (unknown) (no date) (unknown) (unknown) See Rx Instruc tions .ROUTE .COMPLEX Qty: 21 0RF (units unknown) (unknown) (unknown) (no date) (unknown) (unknown) Signed By: (units unknown) (unknown) (unknown) (no date) (unknown) (unknown) Smoking Status : Unknown if ever smoked (units unknown) (unknown) (unknown) (no date) (unknown) (unknown) Social History (unit s unknown) (unknown) (unknown) (no date) (unknown) (unknown) Source: patient (uni ts unknown) (unknown) (unknown) (no date) (unknown) (unknown) Stand Alone Fo mary: Patient Portal/API (units unknown) (unknown) (unknown) (no date) (unknown) (unknown) Stated complai nt: Swelling, hip pain (units unknown) (unknown) (unknown) (no date) (unknown) (unknown) Substance Use Type: does not use (units unknown) (unknown) (unknown) (no date) (unknown) (unknown) Temperature 98 .5 F 02/06/23 20:12 (units unknown) (unknown) (unknown) (no date) (unknown) (unknown) Temperature 98.5 F ( units unknown) (unknown) (unknown) (no date) (unknown) (unknown) Time Seen by Harris mckinley: 02/06/23 20:22 (units unknown) (unknown) (unknown) (no date) (unknown) (unknown) Vital Signs - 8 hr ( units unknown) (unknown) (unknown) (no date) (unknown) (unknown) Vital Signs (units unknown) (unknown) (unknown) (no date) (unknown) (unknown) Vital signs: (units unknown) (unknown) (unknown) (no date) (unknown) (unknown) Chicho Penn, [employer] [Primary Care Provider] (units unknown) (unknown) (unknown) (no date) (unknown) (unknown) [ ] New medica tion written as a paper prescription (units unknown) (unknown) (unknown) (no date) (unknown) (unknown) [ ] No new med ications given (units unknown) (unknown) (unknown) (no date) (unknown) (unknown) [x ] New medic ation prescriptions sent to your pharmacy: [ [facility] in (units unknown) (unknown) (unknown) (no date) (unknown) (unknown) a dose pack (M edrol ([place])) #21 ea (units unknown) (unknown) (unknown) (no date) (unknown) (unknown) alcohol intake frequency: holidays/special occasions only (units unknown) (unknown) (unknown) (no date) (unknown) (unknown) appointment. L et them know you were seen in the Emergency Department and that we (units unknown) (unknown) (unknown) (no date) (unknown) (unknown) ask that you b e seen in follow up. We will electronically transmit a record of (units unknown) (unknown) (unknown) (no date) (unknown) (unknown) concerning sym ptoms, such as [fever greater than 101 F, shaking chills, (units unknown) (unknown) (unknown) (no date) (unknown) (unknown) discussed your history and physical exam are very reassuring, you just had a (units unknown) (unknown) (unknown) (no date) (unknown) (unknown) methylpredniso lone 4 mg tablets in See Rx Instructions PO .COMPLEX 02/06/23 (units unknown) (unknown) (unknown) (no date) (unknown) (unknown) methylpredniso lone [Medrol ([place])] 4 mg tablets,dose pack (units unknown) (unknown) (unknown) (no date) (unknown) (unknown) orally per pac [place] directions (units unknown) (unknown) (unknown) (no date) (unknown) (unknown) radiculopathy and right hip pain possibly related to labral injury. As we (units unknown) (unknown) (unknown) (no date) (unknown) (unknown) there is iwona e To add by repeating these tests tonight (units unknown) (unknown) (unknown) (no date) (unknown) (unknown) today's note i f your PCP is in our system (units unknown) (unknown) (unknown) (no date) (unknown) (unknown) very thorough workup including labs and imaging and we sure the opinion that (units unknown) (unknown) (unknown) (no date) (unknown) (unknown) worsening pain , persistent vomiting or other bothersome symptoms] (units unknown) (unknown) Result panel 3 (unknown) (no date) (unknown) (unknown) (no value) (units unknown) (unknown) (unknown) (no date) (unknown) (unknown) *Please contin ue to take your regular medications as directed. 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 (units unknown) (unknown) (unknown) (no date) (unknown) (unknown) 02/06/23 (units unknown) (unknown) (unknown) (no date) (unknown) (unknown) 20:12 02/06/23 (unit s unknown) (unknown) (unknown) (no date) (unknown) (unknown) 23:57 (units unknown) (unknown) (unknown) (no date) (unknown) (unknown) 37-year-old gloria rizvi nonsmoker with noncontributory medical history presents with (units unknown) (unknown) (unknown) (no date) (unknown) (unknown) Activity Restrictions/Additiona l Instructions: (units unknown) (unknown) (unknown) (no date) (unknown) (unknown) Acute carpal t unnel syndrome, Acute hip pain (units unknown) (unknown) (unknown) (no date) (unknown) (unknown) Age/Sex: 37 / M (uni ts unknown) (unknown) (unknown) (no date) (unknown) (unknown) Allergies (units unknown) (unknown) (unknown) (no date) (unknown) (unknown) Allergy/AdvRea c Type Severity Reaction Status Date / Time (units unknown) (unknown) (unknown) (no date) (unknown) (unknown) Blood Pressure 139/98 H 02/06/23 20:12 (units unknown) (unknown) (unknown) (no date) (unknown) (unknown) Blood Pressure 139/98 H 144/76 H (units unknown) (unknown) (unknown) (no date) (unknown) (unknown) Chief complain t: Extremity Problem,Nontraumatic (units unknown) (unknown) (unknown) (no date) (unknown) (unknown) Clinical Impression: (units unknown) (unknown) (unknown) (no date) (unknown) (unknown) Course (units unknown) (unknown) (unknown) (no date) (unknown) (unknown) : 6 Acct:[id number] (units unknown) (unknown) (unknown) (no date) (unknown) (unknown) Date of Servic e: 02/06/23 (units unknown) (unknown) (unknown) (no date) (unknown) (unknown) Departure (units unknown) (unknown) (unknown) (no date) (unknown) (unknown) Discharge Plan (unit s unknown) (unknown) (unknown) (no date) (unknown) (unknown) ER Physician: Reji Hurst D.O. (units unknown) (unknown) (unknown) (no date) (unknown) (unknown) Emergency Report (un its unknown) (unknown) (unknown) (no date) (unknown) (unknown) Exam (units unknown) (unknown) (unknown) (no date) (unknown) (unknown) General (units unknown) (unknown) (unknown) (no date) (unknown) (unknown) HPI - General Adult (units unknown) (unknown) (unknown) (no date) (unknown) (unknown) HPI narrative: (unit s unknown) (unknown) (unknown) (no date) (unknown) (unknown) He denies it h is leg is weak but that is hip seems to give out on him. He (units unknown) (unknown) (unknown) (no date) (unknown) (unknown) History of Pre sent Illness (units unknown) (unknown) (unknown) (no date) (unknown) (unknown) Initial Vital Signs (units unknown) (unknown) (unknown) (no date) (unknown) (unknown) Initial Vital Signs: (units unknown) (unknown) (unknown) (no date) (unknown) (unknown) Instructions: DI for Carpal Tunnel Syndrome (units unknown) (unknown) (unknown) (no date) (unknown) (unknown) [address] [address] (units unknown) (unknown) (unknown) (no date) (unknown) (unknown) Medication Instructions Recorded (units unknown) (unknown) (unknown) (no date) (unknown) (unknown) Mode of arriva l: Ambulatory (units unknown) (unknown) (unknown) (no date) (unknown) (unknown) New (units unknown) (unknown) (unknown) (no date) (unknown) (unknown) No Known Drug Allergies Allergy Verified 02/06/23 20:17 (units unknown) (unknown) (unknown) (no date) (unknown) (unknown) [place]] (units unknown) (unknown) (unknown) (no date) (unknown) (unknown) Oxygen Deliver y Method Room Air 02/06/23 20:12 (units unknown) (unknown) (unknown) (no date) (unknown) (unknown) Oxygen Deliver y Method Room Air Room Air (units unknown) (unknown) (unknown) (no date) (unknown) (unknown) Patient Dispos ition: Home (units unknown) (unknown) (unknown) (no date) (unknown) (unknown) Patient History (uni ts unknown) (unknown) (unknown) (no date) (unknown) (unknown) Patient: Serg Castaneda (units unknown) (unknown) (unknown) (no date) (unknown) (unknown) Prescriptions: (unit s unknown) (unknown) (unknown) (no date) (unknown) (unknown) Previous Rx's (units unknown) (unknown) (unknown) (no date) (unknown) (unknown) Pulse Oximetry 96 02/06/23 20:12 (units unknown) (unknown) (unknown) (no date) (unknown) (unknown) Pulse Oximetry 96 95 (units unknown) (unknown) (unknown) (no date) (unknown) (unknown) Pulse Rate 97 H 02/06/23 20:12 (units unknown) (unknown) (unknown) (no date) (unknown) (unknown) Pulse Rate 97 H 72 ( units unknown) (unknown) (unknown) (no date) (unknown) (unknown) R#: [id number] (unit s unknown) (unknown) (unknown) (no date) (unknown) (unknown) Referrals: (units unknown) (unknown) (unknown) (no date) (unknown) (unknown) Related Data (units unknown) (unknown) (unknown) (no date) (unknown) (unknown) Respiratory Ra te 15 02/06/23 20:12 (units unknown) (unknown) (unknown) (no date) (unknown) (unknown) Respiratory Rate 15 (units unknown) (unknown) (unknown) (no date) (unknown) (unknown) Rx Instructions: (un its unknown) (unknown) (unknown) (no date) (unknown) (unknown) See Rx Instruc tions .ROUTE .COMPLEX Qty: 21 0RF (units unknown) (unknown) (unknown) (no date) (unknown) (unknown) Signed By: (units unknown) (unknown) (unknown) (no date) (unknown) (unknown) Smoking Status : Unknown if ever smoked (units unknown) (unknown) (unknown) (no date) (unknown) (unknown) Social History (unit s unknown) (unknown) (unknown) (no date) (unknown) (unknown) Source: patient (uni ts unknown) (unknown) (unknown) (no date) (unknown) (unknown) Stand Alone Fo mary: Patient Portal/API (units unknown) (unknown) (unknown) (no date) (unknown) (unknown) Stated complai nt: Swelling, hip pain (units unknown) (unknown) (unknown) (no date) (unknown) (unknown) Substance Use Type: does not use (units unknown) (unknown) (unknown) (no date) (unknown) (unknown) Temperature 98 .5 F 02/06/23 20:12 (units unknown) (unknown) (unknown) (no date) (unknown) (unknown) Temperature 98.5 F ( units unknown) (unknown) (unknown) (no date) (unknown) (unknown) Time Seen by Harris mckinley: 02/06/23 20:22 (units unknown) (unknown) (unknown) (no date) (unknown) (unknown) Vital Signs - 8 hr ( units unknown) (unknown) (unknown) (no date) (unknown) (unknown) Vital Signs (units unknown) (unknown) (unknown) (no date) (unknown) (unknown) Vital signs: (units unknown) (unknown) (unknown) (no date) (unknown) (unknown) Chicho Penn, NABILA [Primary Care Provider] (units unknown) (unknown) (unknown) (no date) (unknown) (unknown) [ ] New medica tion written as a paper prescription (units unknown) (unknown) (unknown) (no date) (unknown) (unknown) [ ] No new med ications given (units unknown) (unknown) (unknown) (no date) (unknown) (unknown) [x ] New medic ation prescriptions sent to your pharmacy: [ [facility] in (units unknown) (unknown) (unknown) (no date) (unknown) (unknown) a dose pack ([place] fontana ([place])) #21 ea (units unknown) (unknown) (unknown) (no date) (unknown) (unknown) alcohol intake frequency: holidays/special occasions only (units unknown) (unknown) (unknown) (no date) (unknown) (unknown) and extensive workup about 1 week ago at the [facility] with lab (units unknown) (unknown) (unknown) (no date) (unknown) (unknown) appointment. L et them know you were seen in the Emergency Department and that we (units unknown) (unknown) (unknown) (no date) (unknown) (unknown) ask that you b e seen in follow up. We will electronically transmit a record of (units unknown) (unknown) (unknown) (no date) (unknown) (unknown) concerning sym ptoms, such as [fever greater than 101 F, shaking chills, (units unknown) (unknown) (unknown) (no date) (unknown) (unknown) control of bow el or bladder (units unknown) (unknown) (unknown) (no date) (unknown) (unknown) denies fever o r chills, direct trauma as stated, use of anticoagulants, loss of (units unknown) (unknown) (unknown) (no date) (unknown) (unknown) discussed your history and physical exam are very reassuring, you just had a (units unknown) (unknown) (unknown) (no date) (unknown) (unknown) does not curre ntly take them. Additionally he has been having problems with his (units unknown) (unknown) (unknown) (no date) (unknown) (unknown) gabapentin. He states gabapentin and steroids traditionally do not work and he (units unknown) (unknown) (unknown) (no date) (unknown) (unknown) injury. He sta anita that he was seen and evaluated by his primary care provider (units unknown) (unknown) (unknown) (no date) (unknown) (unknown) methylpredniso lone 4 mg tablets in See Rx Instructions PO .COMPLEX 02/06/23 (units unknown) (unknown) (unknown) (no date) (unknown) (unknown) methylpredniso lone [Medrol ([place])] 4 mg tablets,dose pack (units unknown) (unknown) (unknown) (no date) (unknown) (unknown) multiple compl aints including low back pain and hip pain in the absence of (units unknown) (unknown) (unknown) (no date) (unknown) (unknown) multiple medic ations including anti-inflammatory, muscle relaxers, and even (units unknown) (unknown) (unknown) (no date) (unknown) (unknown) orally per pac kage directions (units unknown) (unknown) (unknown) (no date) (unknown) (unknown) pain that radi ates into his left lateral it for some time and has been on (units unknown) (unknown) (unknown) (no date) (unknown) (unknown) radiculopathy and right hip pain possibly related to labral injury. As we (units unknown) (unknown) (unknown) (no date) (unknown) (unknown) right hip and states that on occasion it seems to pop and even give out on him. (units unknown) (unknown) (unknown) (no date) (unknown) (unknown) there is iwona e To add by repeating these tests tonight (units unknown) (unknown) (unknown) (no date) (unknown) (unknown) today's note i f your PCP is in our system (units unknown) (unknown) (unknown) (no date) (unknown) (unknown) very thorough workup including labs and imaging and we sure the opinion that (units unknown) (unknown) (unknown) (no date) (unknown) (unknown) work and imagi ng that was largely unremarkable. He has been having low back (units unknown) (unknown) (unknown) (no date) (unknown) (unknown) worsening pain , persistent vomiting or other bothersome symptoms] (units unknown) (unknown) Result panel 4 (unknown) (no date) (unknown) (unknown) (no value) (units unknown) (unknown) (unknown) (no date) (unknown) (unknown) *Please contin ue to take your regular medications as directed. 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 (units unknown) (unknown) (unknown) (no date) (unknown) (unknown) 02/06/23 (units unknown) (unknown) (unknown) (no date) (unknown) (unknown) 12 point revie w of systems is negative except for those stated above (units unknown) (unknown) (unknown) (no date) (unknown) (unknown) 20:12 02/06/23 (unit s unknown) (unknown) (unknown) (no date) (unknown) (unknown) 23:57 (units unknown) (unknown) (unknown) (no date) (unknown) (unknown) 37-year-old [facility] nonsmoker with noncontributory medical history presents with (units unknown) (unknown) (unknown) (no date) (unknown) (unknown) Activity Restrictions/Additiona l Instructions: (units unknown) (unknown) (unknown) (no date) (unknown) (unknown) Acute carpal t unnel syndrome, Acute hip pain (units unknown) (unknown) (unknown) (no date) (unknown) (unknown) Age/Sex: 37 / M (uni ts unknown) (unknown) (unknown) (no date) (unknown) (unknown) Allergies (units unknown) (unknown) (unknown) (no date) (unknown) (unknown) Allergy/AdvRea c Type Severity Reaction Status Date / Time (units unknown) (unknown) (unknown) (no date) (unknown) (unknown) BACK: Back ten prakash but free of any obvious external abnormalities. Patient exam (units unknown) (unknown) (unknown) (no date) (unknown) (unknown) Blood Pressure 139/98 H 02/06/23 20:12 (units unknown) (unknown) (unknown) (no date) (unknown) (unknown) Blood Pressure 139/98 H 144/76 H (units unknown) (unknown) (unknown) (no date) (unknown) (unknown) CARDIOVASCULAR : Denies chest pain, palpitations, orthopnea, edema, (units unknown) (unknown) (unknown) (no date) (unknown) (unknown) CARDIOVASCULAR : Regular rate and rhythm without murmurs, gallops, or rubs. (units unknown) (unknown) (unknown) (no date) (unknown) (unknown) Chief complain t: Extremity Problem,Nontraumatic (units unknown) (unknown) (unknown) (no date) (unknown) (unknown) Clinical Impression: (units unknown) (unknown) (unknown) (no date) (unknown) (unknown) Course (units unknown) (unknown) (unknown) (no date) (unknown) (unknown) : 6 Acct:[id number] (units unknown) (unknown) (unknown) (no date) (unknown) (unknown) Date of Servic e: 02/06/23 (units unknown) (unknown) (unknown) (no date) (unknown) (unknown) Departure (units unknown) (unknown) (unknown) (no date) (unknown) (unknown) Discharge Plan (unit s unknown) (unknown) (unknown) (no date) (unknown) (unknown) ENT: Nose with out bleeding, purulent drainage. Throat without erythema, (units unknown) (unknown) (unknown) (no date) (unknown) (unknown) ER Physician: Reji Hurst D.O. (units unknown) (unknown) (unknown) (no date) (unknown) (unknown) EXTREMITIES: N o edema or joint tenderness. Increased numbness of fingers of (units unknown) (unknown) (unknown) (no date) (unknown) (unknown) EYES: Pupils e qual round and reactive. Extraocular motions intact. No scleral (units unknown) (unknown) (unknown) (no date) (unknown) (unknown) Emergency Report (un its unknown) (unknown) (unknown) (no date) (unknown) (unknown) Exam Narrative: (uni ts unknown) (unknown) (unknown) (no date) (unknown) (unknown) Exam (units unknown) (unknown) (unknown) (no date) (unknown) (unknown) GASTROINTESTIN AL: Abdomen soft, non-tender, nondistended. (units unknown) (unknown) (unknown) (no date) (unknown) (unknown) GASTROINTESTIN AL: Denies nausea, vomiting, abdominal pain, diarrhea, (units unknown) (unknown) (unknown) (no date) (unknown) (unknown) GENERAL: Denie s chills, fatigue, malaise, fever, sweats. (units unknown) (unknown) (unknown) (no date) (unknown) (unknown) GENERAL: [37] year old patient appears stated age. Well-developed patient, in (units unknown) (unknown) (unknown) (no date) (unknown) (unknown) : Denies dys uria, frequency, incontinence, hematuria, urinary retention. (units unknown) (unknown) (unknown) (no date) (unknown) (unknown) General (units unknown) (unknown) (unknown) (no date) (unknown) (unknown) HEAD: Atraumat ic. Normocephalic. (units unknown) (unknown) (unknown) (no date) (unknown) (unknown) HEENT: Denies sinus pain, ear pain, sore throat, difficulty swallowing, (units unknown) (unknown) (unknown) (no date) (unknown) (unknown) HPI - General Adult (units unknown) (unknown) (unknown) (no date) (unknown) (unknown) HPI narrative: (unit s unknown) (unknown) (unknown) (no date) (unknown) (unknown) He denies it h is leg is weak but that is hip seems to give out on him. He (units unknown) (unknown) (unknown) (no date) (unknown) (unknown) History of Pre sent Illness (units unknown) (unknown) (unknown) (no date) (unknown) (unknown) Initial Vital Signs (units unknown) (unknown) (unknown) (no date) (unknown) (unknown) Initial Vital Signs: (units unknown) (unknown) (unknown) (no date) (unknown) (unknown) Instructions: DI for Carpal Tunnel Syndrome (units unknown) (unknown) (unknown) (no date) (unknown) (unknown) [address] [address] (units unknown) (unknown) (unknown) (no date) (unknown) (unknown) MUSCULOSKELETA L: See HPI (units unknown) (unknown) (unknown) (no date) (unknown) (unknown) Medication Instructions Recorded (units unknown) (unknown) (unknown) (no date) (unknown) (unknown) Mode of arriva l: Ambulatory (units unknown) (unknown) (unknown) (no date) (unknown) (unknown) NECK: Trachea midline. Non tender (units unknown) (unknown) (unknown) (no date) (unknown) (unknown) NEURO: AOx3. (units unknown) (unknown) (unknown) (no date) (unknown) (unknown) NEUROLOGIC: See HPI (units unknown) (unknown) (unknown) (no date) (unknown) (unknown) Narrative (units unknown) (unknown) (unknown) (no date) (unknown) (unknown) Narrative: (units unknown) (unknown) (unknown) (no date) (unknown) (unknown) New (units unknown) (unknown) (unknown) (no date) (unknown) (unknown) No Known Drug Allergies Allergy Verified 02/06/23 20:17 (units unknown) (unknown) (unknown) (no date) (unknown) (unknown) [place]] (units unknown) (unknown) (unknown) (no date) (unknown) (unknown) Oxygen Deliver y Method Room Air 02/06/23 20:12 (units unknown) (unknown) (unknown) (no date) (unknown) (unknown) Oxygen Deliver y Method Room Air Room Air (units unknown) (unknown) (unknown) (no date) (unknown) (unknown) PSYCHIATRIC: N o concerning psychosocial issues. (units unknown) (unknown) (unknown) (no date) (unknown) (unknown) Patient Dispos ition: Home (units unknown) (unknown) (unknown) (no date) (unknown) (unknown) Patient History (uni ts unknown) (unknown) (unknown) (no date) (unknown) (unknown) Patient: Serg Castaneda (units unknown) (unknown) (unknown) (no date) (unknown) (unknown) Prescriptions: (unit s unknown) (unknown) (unknown) (no date) (unknown) (unknown) Previous Rx's (units unknown) (unknown) (unknown) (no date) (unknown) (unknown) Pulse Oximetry 96 02/06/23 20:12 (units unknown) (unknown) (unknown) (no date) (unknown) (unknown) Pulse Oximetry 96 95 (units unknown) (unknown) (unknown) (no date) (unknown) (unknown) Pulse Rate 97 H 02/06/23 20:12 (units unknown) (unknown) (unknown) (no date) (unknown) (unknown) Pulse Rate 97 H 72 ( units unknown) (unknown) (unknown) (no date) (unknown) (unknown) R#: [id number] (unit s unknown) (unknown) (unknown) (no date) (unknown) (unknown) RESPIRATORY: C lear to auscultation. Breath sounds equal bilaterally. No wheezes, (units unknown) (unknown) (unknown) (no date) (unknown) (unknown) RESPIRATORY: D enies dyspnea, cough, wheezing, hemoptysis, sputum. (units unknown) (unknown) (unknown) (no date) (unknown) (unknown) Referrals: (units unknown) (unknown) (unknown) (no date) (unknown) (unknown) Related Data (units unknown) (unknown) (unknown) (no date) (unknown) (unknown) Respiratory Ra te 15 02/06/23 20:12 (units unknown) (unknown) (unknown) (no date) (unknown) (unknown) Respiratory Rate 15 (units unknown) (unknown) (unknown) (no date) (unknown) (unknown) Review of Systems (u nits unknown) (unknown) (unknown) (no date) (unknown) (unknown) Rheumatoid art hritis. 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) (unknown) (unknown) (no date) (unknown) (unknown) Rx Instructions: (un its unknown) (unknown) (unknown) (no date) (unknown) (unknown) SKIN: Denies r coty, skin lesions, or other (units unknown) (unknown) (unknown) (no date) (unknown) (unknown) SKIN: No rash or erythema of visible areas (units unknown) (unknown) (unknown) (no date) (unknown) (unknown) See Rx Instruc tions .ROUTE .COMPLEX Qty: 21 0RF (units unknown) (unknown) (unknown) (no date) (unknown) (unknown) Signed By: (units unknown) (unknown) (unknown) (no date) (unknown) (unknown) Smoking Status : Unknown if ever smoked (units unknown) (unknown) (unknown) (no date) (unknown) (unknown) Social History (units unknown) (unknown) (unknown) (no date) (unknown) (unknown) Source: patient (uni ts unknown) (unknown) (unknown) (no date) (unknown) (unknown) Stand Alone Fo mary: Patient Portal/API (units unknown) (unknown) (unknown) (no date) (unknown) (unknown) Stated complai nt: Swelling, hip pain (units unknown) (unknown) (unknown) (no date) (unknown) (unknown) Substance Use Type: does not use (units unknown) (unknown) (unknown) (no date) (unknown) (unknown) Temperature 98 .5 F 02/06/23 20:12 (units unknown) (unknown) (unknown) (no date) (unknown) (unknown) Temperature 98.5 F ( units unknown) (unknown) (unknown) (no date) (unknown) (unknown) Time Seen by Harris mckinley: 02/06/23 20:22 (units unknown) (unknown) (unknown) (no date) (unknown) (unknown) Vital Signs - 8 hr ( units unknown) (unknown) (unknown) (no date) (unknown) (unknown) Vital Signs (units unknown) (unknown) (unknown) (no date) (unknown) (unknown) Vital signs: (units unknown) (unknown) (unknown) (no date) (unknown) (unknown) Chicho Penn, NABILA [Primary Care Provider] (units unknown) (unknown) (unknown) (no date) (unknown) (unknown) [ ] New medica tion written as a paper prescription (units unknown) (unknown) (unknown) (no date) (unknown) (unknown) [ ] No new med ications given (units unknown) (unknown) (unknown) (no date) (unknown) (unknown) [x ] New medic ation prescriptions sent to your pharmacy: [ [facility] in (units unknown) (unknown) (unknown) (no date) (unknown) (unknown) a dose pack (Osvaldo fontana (Georges)) #21 ea (units unknown) (unknown) (unknown) (no date) (unknown) (unknown) alcohol intake frequency: holidays/special occasions only (units unknown) (unknown) (unknown) (no date) (unknown) (unknown) and extensive workup about 1 week ago at the [facility] with lab (units unknown) (unknown) (unknown) (no date) (unknown) (unknown) appointment. L et them know you were seen in the Emergency Department and that we (units unknown) (unknown) (unknown) (no date) (unknown) (unknown) ask that you b e seen in follow up. We will electronically transmit a record of (units unknown) (unknown) (unknown) (no date) (unknown) (unknown) breath or coug h. He is had no nausea, vomiting or diarrhea. Denies dysuria, (units unknown) (unknown) (unknown) (no date) (unknown) (unknown) concerning sym ptoms, such as [fever greater than 101 F, shaking chills, (units unknown) (unknown) (unknown) (no date) (unknown) (unknown) constipation, melena . (units unknown) (unknown) (unknown) (no date) (unknown) (unknown) control of bow el or bladder. He states that his doctors are evaluating him for (units unknown) (unknown) (unknown) (no date) (unknown) (unknown) denies fever o r chills, direct trauma as stated, use of anticoagulants, loss of (units unknown) (unknown) (unknown) (no date) (unknown) (unknown) discussed your history and physical exam are very reassuring, you just had a (units unknown) (unknown) (unknown) (no date) (unknown) (unknown) dizziness. (units unknown) (unknown) (unknown) (no date) (unknown) (unknown) does not curre ntly take them. Additionally he has been having problems with his (units unknown) (unknown) (unknown) (no date) (unknown) (unknown) frequency or u rgency. He denies weight gain or weight loss. He is had no (units unknown) (unknown) (unknown) (no date) (unknown) (unknown) gabapentin. He states gabapentin and steroids traditionally do not work and he (units unknown) (unknown) (unknown) (no date) (unknown) (unknown) icterus. No in jection or drainage. (units unknown) (unknown) (unknown) (no date) (unknown) (unknown) injury. He sta anita that he was seen and evaluated by his primary care provider (units unknown) (unknown) (unknown) (no date) (unknown) (unknown) lightheadednes s. He is had no fever or chills. Denies chest pain, shortness of (units unknown) (unknown) (unknown) (no date) (unknown) (unknown) medication josh nge or dietary change (units unknown) (unknown) (unknown) (no date) (unknown) (unknown) methylpredniso lone 4 mg tablets in See Rx Instructions PO .COMPLEX 02/06/23 (units unknown) (unknown) (unknown) (no date) (unknown) (unknown) methylpredniso lone [Medrol (Georges)] 4 mg tablets,dose pack (units unknown) (unknown) (unknown) (no date) (unknown) (unknown) mild distress. (unit s unknown) (unknown) (unknown) (no date) (unknown) (unknown) multiple compl aints including low back pain and hip pain in the absence of (units unknown) (unknown) (unknown) (no date) (unknown) (unknown) multiple medic ations including anti-inflammatory, muscle relaxers, and even (units unknown) (unknown) (unknown) (no date) (unknown) (unknown) notes decrease d range of motion and muscle spasm, but no CVA tenderness, or (units unknown) (unknown) (unknown) (no date) (unknown) (unknown) orally per pac kage directions (units unknown) (unknown) (unknown) (no date) (unknown) (unknown) pain that radi ates into his left lateral it for some time and has been on (units unknown) (unknown) (unknown) (no date) (unknown) (unknown) radiculopathy and right hip pain possibly related to labral injury. As we (units unknown) (unknown) (unknown) (no date) (unknown) (unknown) rales, or rhonchi. ( units unknown) (unknown) (unknown) (no date) (unknown) (unknown) right hand wit h Phalen's and Tinel's (units unknown) (unknown) (unknown) (no date) (unknown) (unknown) right hip and states that on occasion it seems to pop and even give out on him. (units unknown) (unknown) (unknown) (no date) (unknown) (unknown) saddle anesthe dana, and decreased reflexes, decreased sensation or strength. (units unknown) (unknown) (unknown) (no date) (unknown) (unknown) the thumb, ind ex, and middle finger of his R hand feel numb and have for some (units unknown) (unknown) (unknown) (no date) (unknown) (unknown) there is littl e To add by repeating these tests tonight (units unknown) (unknown) (unknown) (no date) (unknown) (unknown) time. He denie s any systemic complaints such as dizziness, weakness or (units unknown) (unknown) (unknown) (no date) (unknown) (unknown) today's note i f your PCP is in our system (units unknown) (unknown) (unknown) (no date) (unknown) (unknown) tonsillar hype rtrophy or exudate. Airway patent. (units unknown) (unknown) (unknown) (no date) (unknown) (unknown) vertebral poin t tenderness. There are no symptoms of cauda equina such as (units unknown) (unknown) (unknown) (no date) (unknown) (unknown) very thorough workup including labs and imaging and we sure the opinion that (units unknown) (unknown) (unknown) (no date) (unknown) (unknown) work and imagi ng that was largely unremarkable. He has been having low back (units unknown) (unknown) (unknown) (no date) (unknown) (unknown) worsening pain , persistent vomiting or other bothersome symptoms] (units unknown) (unknown) Result panel 5 (unknown) (no date) (unknown) (unknown) (no value) (units unknown) (unknown) (unknown) (no date) (unknown) (unknown) *Please contin ue to take your regular medications as directed. 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 (units unknown) (unknown) (unknown) (no date) (unknown) (unknown) 02/06/23 (units unknown) (unknown) (unknown) (no date) (unknown) (unknown) 12 point revie w of systems is negative except for those stated above (units unknown) (unknown) (unknown) (no date) (unknown) (unknown) 20:12 02/06/23 (unit s unknown) (unknown) (unknown) (no date) (unknown) (unknown) 23:57 (units unknown) (unknown) (unknown) (no date) (unknown) (unknown) 37-year-old [facility] nonsmoker with noncontributory medical history presents with (units unknown) (unknown) (unknown) (no date) (unknown) (unknown) Activity Restrictions/Additiona l Instructions: (units unknown) (unknown) (unknown) (no date) (unknown) (unknown) Acute carpal t unnel syndrome, Acute hip pain (units unknown) (unknown) (unknown) (no date) (unknown) (unknown) Age/Sex: 37 / M (uni ts unknown) (unknown) (unknown) (no date) (unknown) (unknown) Allergies (units unknown) (unknown) (unknown) (no date) (unknown) (unknown) Allergy/AdvRea c Type Severity Reaction Status Date / Time (units unknown) (unknown) (unknown) (no date) (unknown) (unknown) BACK: Back ten prakash but free of any obvious external abnormalities. Patient exam (units unknown) (unknown) (unknown) (no date) (unknown) (unknown) Blood Pressure 139/98 H 02/06/23 20:12 (units unknown) (unknown) (unknown) (no date) (unknown) (unknown) Blood Pressure 139/98 H 144/76 H (units unknown) (unknown) (unknown) (no date) (unknown) (unknown) CARDIOVASCULAR : Denies chest pain, palpitations, orthopnea, edema, (units unknown) (unknown) (unknown) (no date) (unknown) (unknown) CARDIOVASCULAR : Regular rate and rhythm without murmurs, gallops, or rubs. (units unknown) (unknown) (unknown) (no date) (unknown) (unknown) Chief complain t: Extremity Problem,Nontraumatic (units unknown) (unknown) (unknown) (no date) (unknown) (unknown) Clinical Impression: (units unknown) (unknown) (unknown) (no date) (unknown) (unknown) Consultations: (unit s unknown) (unknown) (unknown) (no date) (unknown) (unknown) Course (units unknown) (unknown) (unknown) (no date) (unknown) (unknown) : 6 Acct:[id number] (units unknown) (unknown) (unknown) (no date) (unknown) (unknown) Date of Servic e: 02/06/23 (units unknown) (unknown) (unknown) (no date) (unknown) (unknown) Departure (units unknown) (unknown) (unknown) (no date) (unknown) (unknown) Discharge Plan (unit s unknown) (unknown) (unknown) (no date) (unknown) (unknown) ENT: Nose with out bleeding, purulent drainage. Throat without erythema, (units unknown) (unknown) (unknown) (no date) (unknown) (unknown) ER Physician: Reji Hurst D.O. (units unknown) (unknown) (unknown) (no date) (unknown) (unknown) EXTREMITIES: N o edema or joint tenderness. Increased numbness of fingers of (units unknown) (unknown) (unknown) (no date) (unknown) (unknown) EYES: Pupils e qual round and reactive. Extraocular motions intact. No scleral (units unknown) (unknown) (unknown) (no date) (unknown) (unknown) Emergency Report (un its unknown) (unknown) (unknown) (no date) (unknown) (unknown) Exam Narrative: (uni ts unknown) (unknown) (unknown) (no date) (unknown) (unknown) Exam (units unknown) (unknown) (unknown) (no date) (unknown) (unknown) Findings and d ischarge diagnosis discussed with patient/family followed by (units unknown) (unknown) (unknown) (no date) (unknown) (unknown) GASTROINTESTIN AL: Abdomen soft, non-tender, nondistended. (units unknown) (unknown) (unknown) (no date) (unknown) (unknown) GASTROINTESTIN AL: Denies nausea, vomiting, abdominal pain, diarrhea, (units unknown) (unknown) (unknown) (no date) (unknown) (unknown) GENERAL: Denie s chills, fatigue, malaise, fever, sweats. (units unknown) (unknown) (unknown) (no date) (unknown) (unknown) GENERAL: [37] year old patient appears stated age. Well-developed patient, in (units unknown) (unknown) (unknown) (no date) (unknown) (unknown) : Denies dys uria, frequency, incontinence, hematuria, urinary retention. (units unknown) (unknown) (unknown) (no date) (unknown) (unknown) General (units unknown) (unknown) (unknown) (no date) (unknown) (unknown) HEAD: Atraumat ic. Normocephalic. (units unknown) (unknown) (unknown) (no date) (unknown) (unknown) HEENT: Denies sinus pain, ear pain, sore throat, difficulty swallowing, (units unknown) (unknown) (unknown) (no date) (unknown) (unknown) HPI - General Adult (units unknown) (unknown) (unknown) (no date) (unknown) (unknown) HPI narrative: (unit s unknown) (unknown) (unknown) (no date) (unknown) (unknown) He denies it h is leg is weak but that is hip seems to give out on him. He (units unknown) (unknown) (unknown) (no date) (unknown) (unknown) History of Pre sent Illness (units unknown) (unknown) (unknown) (no date) (unknown) (unknown) Imaging reviewed: (u nits unknown) (unknown) (unknown) (no date) (unknown) (unknown) Initial Vital Signs (units unknown) (unknown) (unknown) (no date) (unknown) (unknown) Initial Vital Signs: (units unknown) (unknown) (unknown) (no date) (unknown) (unknown) Instructions: DI for Carpal Tunnel Syndrome (units unknown) (unknown) (unknown) (no date) (unknown) (unknown) [place] [address] (units unknown) (unknown) (unknown) (no date) (unknown) (unknown) Labs reviewed and interpreted by myself: (units unknown) (unknown) (unknown) (no date) (unknown) (unknown) MDM Narrative (units unknown) (unknown) (unknown) (no date) (unknown) (unknown) MUSCULOSKELETA L: See HPI (units unknown) (unknown) (unknown) (no date) (unknown) (unknown) Medical Decisi on Making (units unknown) (unknown) (unknown) (no date) (unknown) (unknown) Medical decisi on making narrative: (units unknown) (unknown) (unknown) (no date) (unknown) (unknown) Medication Instructions Recorded (units unknown) (unknown) (unknown) (no date) (unknown) (unknown) Mode of arriva l: Ambulatory (units unknown) (unknown) (unknown) (no date) (unknown) (unknown) Multiple etiol ogies for patient's symptoms considered including, but not limited (units unknown) (unknown) (unknown) (no date) (unknown) (unknown) NECK: Trachea midline. Non tender (units unknown) (unknown) (unknown) (no date) (unknown) (unknown) NEURO: AOx3. (units unknown) (unknown) (unknown) (no date) (unknown) (unknown) NEUROLOGIC: See HPI (units unknown) (unknown) (unknown) (no date) (unknown) (unknown) Narrative (units unknown) (unknown) (unknown) (no date) (unknown) (unknown) Narrative: (units unknown) (unknown) (unknown) (no date) (unknown) (unknown) New (units unknown) (unknown) (unknown) (no date) (unknown) (unknown) No Known Drug Allergies Allergy Verified 02/06/23 20:17 (units unknown) (unknown) (unknown) (no date) (unknown) (unknown) [place]] (units unknown) (unknown) (unknown) (no date) (unknown) (unknown) Oxygen Deliver y Method Room Air 02/06/23 20:12 (units unknown) (unknown) (unknown) (no date) (unknown) (unknown) Oxygen Deliver y Method Room Air Room Air (units unknown) (unknown) (unknown) (no date) (unknown) (unknown) PSYCHIATRIC: N o concerning psychosocial issues. (units unknown) (unknown) (unknown) (no date) (unknown) (unknown) Patient Dispos ition: Home (units unknown) (unknown) (unknown) (no date) (unknown) (unknown) Patient History (uni ts unknown) (unknown) (unknown) (no date) (unknown) (unknown) Patient's symp toms improved over duration of stay with above-stated therapies. (units unknown) (unknown) (unknown) (no date) (unknown) (unknown) Patient: Serg Castaneda (units unknown) (unknown) (unknown) (no date) (unknown) (unknown) Prescriptions: (unit s unknown) (unknown) (unknown) (no date) (unknown) (unknown) Previous Rx's (units unknown) (unknown) (unknown) (no date) (unknown) (unknown) Primary Histor jose de jesus: patient (units unknown) (unknown) (unknown) (no date) (unknown) (unknown) Prior Charts r eviewed in our EMR (units unknown) (unknown) (unknown) (no date) (unknown) (unknown) Pulse Oximetry 96 02/06/23 20:12 (units unknown) (unknown) (unknown) (no date) (unknown) (unknown) Pulse Oximetry 96 95 (units unknown) (unknown) (unknown) (no date) (unknown) (unknown) Pulse Rate 97 H 02/06/23 20:12 (units unknown) (unknown) (unknown) (no date) (unknown) (unknown) Pulse Rate 97 H 72 ( units unknown) (unknown) (unknown) (no date) (unknown) (unknown) R#: [id number] (unit s unknown) (unknown) (unknown) (no date) (unknown) (unknown) RESPIRATORY: C lear to auscultation. Breath sounds equal bilaterally. No wheezes, (units unknown) (unknown) (unknown) (no date) (unknown) (unknown) RESPIRATORY: D enies dyspnea, cough, wheezing, hemoptysis, sputum. (units unknown) (unknown) (unknown) (no date) (unknown) (unknown) Referrals: (units unknown) (unknown) (unknown) (no date) (unknown) (unknown) Related Data (units unknown) (unknown) (unknown) (no date) (unknown) (unknown) Respiratory Ra te 15 02/06/23 20:12 (units unknown) (unknown) (unknown) (no date) (unknown) (unknown) Respiratory Rate 15 (units unknown) (unknown) (unknown) (no date) (unknown) (unknown) Return precaut ions discussed with patient/family whom verbalize understanding of (units unknown) (unknown) (unknown) (no date) (unknown) (unknown) Review of Systems (u nits unknown) (unknown) (unknown) (no date) (unknown) (unknown) Rheumatoid art hritis. 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) (unknown) (unknown) (no date) (unknown) (unknown) Rx Instructions: (un its unknown) (unknown) (unknown) (no date) (unknown) (unknown) SKIN: Denies r coty, skin lesions, or other (units unknown) (unknown) (unknown) (no date) (unknown) (unknown) SKIN: No rash or erythema of visible areas (units unknown) (unknown) (unknown) (no date) (unknown) (unknown) See Rx Instruc tions .ROUTE .COMPLEX Qty: 21 0RF (units unknown) (unknown) (unknown) (no date) (unknown) (unknown) Signed By: (units unknown) (unknown) (unknown) (no date) (unknown) (unknown) Smoking Status : Unknown if ever smoked (units unknown) (unknown) (unknown) (no date) (unknown) (unknown) Social History (units unknown) (unknown) (unknown) (no date) (unknown) (unknown) Source: patient (uni ts unknown) (unknown) (unknown) (no date) (unknown) (unknown) Stand Alone Fo mary: Patient Portal/API (units unknown) (unknown) (unknown) (no date) (unknown) (unknown) Stated complai nt: Swelling, hip pain (units unknown) (unknown) (unknown) (no date) (unknown) (unknown) Substance Use Type: does not use (units unknown) (unknown) (unknown) (no date) (unknown) (unknown) Temperature 98 .5 F 02/06/23 20:12 (units unknown) (unknown) (unknown) (no date) (unknown) (unknown) Temperature 98.5 F ( units unknown) (unknown) (unknown) (no date) (unknown) (unknown) Time Seen by Harris mckinley: 02/06/23 20:22 (units unknown) (unknown) (unknown) (no date) (unknown) (unknown) Vital Signs - 8 hr ( units unknown) (unknown) (unknown) (no date) (unknown) (unknown) Vital Signs (units unknown) (unknown) (unknown) (no date) (unknown) (unknown) Vital signs: (units unknown) (unknown) (unknown) (no date) (unknown) (unknown) Chicho Penn, [employer] [Primary Care Provider] (units unknown) (unknown) (unknown) (no date) (unknown) (unknown) [ ] New medica tion written as a paper prescription (units unknown) (unknown) (unknown) (no date) (unknown) (unknown) [ ] No new med ications given (units unknown) (unknown) (unknown) (no date) (unknown) (unknown) [37] year old patient presents with back pain, hip pain, finger numbness (units unknown) (unknown) (unknown) (no date) (unknown) (unknown) [x ] New medic ation prescriptions sent to your pharmacy: [ [facility] in (units unknown) (unknown) (unknown) (no date) (unknown) (unknown) a dose pack (Os[place]do fontana (Georges)) #21 ea (units unknown) (unknown) (unknown) (no date) (unknown) (unknown) alcohol intake frequency: holidays/special occasions only (units unknown) (unknown) (unknown) (no date) (unknown) (unknown) and extensive workup about 1 week ago at the [facility] with lab (units unknown) (unknown) (unknown) (no date) (unknown) (unknown) appointment. L et them know you were seen in the Emergency Department and that we (units unknown) (unknown) (unknown) (no date) (unknown) (unknown) ask that you b e seen in follow up. We will electronically transmit a record of (units unknown) (unknown) (unknown) (no date) (unknown) (unknown) breath or coug h. He is had no nausea, vomiting or diarrhea. Denies dysuria, (units unknown) (unknown) (unknown) (no date) (unknown) (unknown) concerning sym ptoms, such as [fever greater than 101 F, shaking chills, (units unknown) (unknown) (unknown) (no date) (unknown) (unknown) constipation, melena . (units unknown) (unknown) (unknown) (no date) (unknown) (unknown) control of bow el or bladder. He states that his doctors are evaluating him for (units unknown) (unknown) (unknown) (no date) (unknown) (unknown) denies fever o r chills, direct trauma as stated, use of anticoagulants, loss of (units unknown) (unknown) (unknown) (no date) (unknown) (unknown) diagnosis and plan ( units unknown) (unknown) (unknown) (no date) (unknown) (unknown) discussed your history and physical exam are very reassuring, you just had a (units unknown) (unknown) (unknown) (no date) (unknown) (unknown) dizziness. (units unknown) (unknown) (unknown) (no date) (unknown) (unknown) does not curre ntly take them. Additionally he has been having problems with his (units unknown) (unknown) (unknown) (no date) (unknown) (unknown) frequency or u rgency. He denies weight gain or weight loss. He is had no (units unknown) (unknown) (unknown) (no date) (unknown) (unknown) gabapentin. He states gabapentin and steroids traditionally do not work and he (units unknown) (unknown) (unknown) (no date) (unknown) (unknown) icterus. No in jection or drainage. (units unknown) (unknown) (unknown) (no date) (unknown) (unknown) injury. He sta anita that he was seen and evaluated by his primary care provider (units unknown) (unknown) (unknown) (no date) (unknown) (unknown) lightheadednes s. He is had no fever or chills. Denies chest pain, shortness of (units unknown) (unknown) (unknown) (no date) (unknown) (unknown) medication josh nge or dietary change (units unknown) (unknown) (unknown) (no date) (unknown) (unknown) methylpredniso lone 4 mg tablets in See Rx Instructions PO .COMPLEX 02/06/23 (units unknown) (unknown) (unknown) (no date) (unknown) (unknown) methylpredniso lone [Medrol (Georges)] 4 mg tablets,dose pack (units unknown) (unknown) (unknown) (no date) (unknown) (unknown) mild distress. (unit s unknown) (unknown) (unknown) (no date) (unknown) (unknown) multiple compl aints including low back pain and hip pain in the absence of (units unknown) (unknown) (unknown) (no date) (unknown) (unknown) multiple medic ations including anti-inflammatory, muscle relaxers, and even (units unknown) (unknown) (unknown) (no date) (unknown) (unknown) notes decrease d range of motion and muscle spasm, but no CVA tenderness, or (units unknown) (unknown) (unknown) (no date) (unknown) (unknown) orally per pac kage directions (units unknown) (unknown) (unknown) (no date) (unknown) (unknown) pain that radi ates into his left lateral it for some time and has been on (units unknown) (unknown) (unknown) (no date) (unknown) (unknown) radiculopathy and right hip pain possibly related to labral injury. As we (units unknown) (unknown) (unknown) (no date) (unknown) (unknown) rales, or rhonchi. ( units unknown) (unknown) (unknown) (no date) (unknown) (unknown) right hand wit h Phalen's and Tinel's (units unknown) (unknown) (unknown) (no date) (unknown) (unknown) right hip and states that on occasion it seems to pop and even give out on him. (units unknown) (unknown) (unknown) (no date) (unknown) (unknown) saddle anesthe dana, and decreased reflexes, decreased sensation or strength. (units unknown) (unknown) (unknown) (no date) (unknown) (unknown) the thumb, ind ex, and middle finger of his R hand feel numb and have for some (units unknown) (unknown) (unknown) (no date) (unknown) (unknown) there is littl e To add by repeating these tests tonight (units unknown) (unknown) (unknown) (no date) (unknown) (unknown) time. He denie s any systemic complaints such as dizziness, weakness or (units unknown) (unknown) (unknown) (no date) (unknown) (unknown) to: [Lumbar radiculopathy, cauda equina, labral injury, arthritis vs. other] (units unknown) (unknown) (unknown) (no date) (unknown) (unknown) today's note i f your PCP is in our system (units unknown) (unknown) (unknown) (no date) (unknown) (unknown) tonsillar hype rtrophy or exudate. Airway patent. (units unknown) (unknown) (unknown) (no date) (unknown) (unknown) verbalization of understanding (units unknown) (unknown) (unknown) (no date) (unknown) (unknown) vertebral poin t tenderness. There are no symptoms of cauda equina such as (units unknown) (unknown) (unknown) (no date) (unknown) (unknown) very thorough workup including labs and imaging and we sure the opinion that (units unknown) (unknown) (unknown) (no date) (unknown) (unknown) work and imagi ng that was largely unremarkable. He has been having low back (units unknown) (unknown) (unknown) (no date) (unknown) (unknown) worsening pain , persistent vomiting or other bothersome symptoms] (units unknown) (unknown) Result panel 6 (unknown) (no date) (unknown) (unknown) (no value) (units unknown) (unknown) (unknown) (no date) (unknown) (unknown) <Electronicall y signed by Reji Hurst D.O.> (units unknown) (unknown) (unknown) (no date) (unknown) (unknown) *Please contin ue to take your regular medications as directed. 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 (units unknown) (unknown) (unknown) (no date) (unknown) (unknown) 02/06/23 (units unknown) (unknown) (unknown) (no date) (unknown) (unknown) 02/07/23 0418 (units unknown) (unknown) (unknown) (no date) (unknown) (unknown) 12 point revie w of systems is negative except for those stated above (units unknown) (unknown) (unknown) (no date) (unknown) (unknown) 20:12 02/06/23 (unit s unknown) (unknown) (unknown) (no date) (unknown) (unknown) 23:57 (units unknown) (unknown) (unknown) (no date) (unknown) (unknown) 37-year-old gloria rizvi nonsmoker with noncontributory medical history presents with (units unknown) (unknown) (unknown) (no date) (unknown) (unknown) Activity Restrictions/Additiona l Instructions: (units unknown) (unknown) (unknown) (no date) (unknown) (unknown) Acute carpal t unnel syndrome, Acute hip pain (units unknown) (unknown) (unknown) (no date) (unknown) (unknown) Age/Sex: 37 / M (uni ts unknown) (unknown) (unknown) (no date) (unknown) (unknown) Allergies (units unknown) (unknown) (unknown) (no date) (unknown) (unknown) Allergy/AdvRea c Type Severity Reaction Status Date / Time (units unknown) (unknown) (unknown) (no date) (unknown) (unknown) BACK: Back ten prakash but free of any obvious external abnormalities. Patient exam (units unknown) (unknown) (unknown) (no date) (unknown) (unknown) Blood Pressure 139/98 H 02/06/23 20:12 (units unknown) (unknown) (unknown) (no date) (unknown) (unknown) Blood Pressure 139/98 H 144/76 H (units unknown) (unknown) (unknown) (no date) (unknown) (unknown) CARDIOVASCULAR : Denies chest pain, palpitations, orthopnea, edema, (units unknown) (unknown) (unknown) (no date) (unknown) (unknown) CARDIOVASCULAR : Regular rate and rhythm without murmurs, gallops, or rubs. (units unknown) (unknown) (unknown) (no date) (unknown) (unknown) Chief complain t: Extremity Problem,Nontraumatic (units unknown) (unknown) (unknown) (no date) (unknown) (unknown) Clinical Impression: (units unknown) (unknown) (unknown) (no date) (unknown) (unknown) Course (units unknown) (unknown) (unknown) (no date) (unknown) (unknown) : 6 Acct:[id number] (units unknown) (unknown) (unknown) (no date) (unknown) (unknown) Date of Servic e: 02/06/23 (units unknown) (unknown) (unknown) (no date) (unknown) (unknown) Departure (units unknown) (unknown) (unknown) (no date) (unknown) (unknown) Discharge Plan (unit s unknown) (unknown) (unknown) (no date) (unknown) (unknown) ENT: Nose with out bleeding, purulent drainage. Throat without erythema, (units unknown) (unknown) (unknown) (no date) (unknown) (unknown) ER Physician: Reji Hurst D.O. (units unknown) (unknown) (unknown) (no date) (unknown) (unknown) EXTREMITIES: N o edema or joint tenderness. Increased numbness of fingers of (units unknown) (unknown) (unknown) (no date) (unknown) (unknown) EYES: Pupils e qual round and reactive. Extraocular motions intact. No scleral (units unknown) (unknown) (unknown) (no date) (unknown) (unknown) Emergency Report (un its unknown) (unknown) (unknown) (no date) (unknown) (unknown) Exam Narrative: (uni ts unknown) (unknown) (unknown) (no date) (unknown) (unknown) Exam (units unknown) (unknown) (unknown) (no date) (unknown) (unknown) Findings and d ischarge diagnosis discussed with patient/family followed by (units unknown) (unknown) (unknown) (no date) (unknown) (unknown) GASTROINTESTIN AL: Abdomen soft, non-tender, nondistended. (units unknown) (unknown) (unknown) (no date) (unknown) (unknown) GASTROINTESTIN AL: Denies nausea, vomiting, abdominal pain, diarrhea, (units unknown) (unknown) (unknown) (no date) (unknown) (unknown) GENERAL: Denie s chills, fatigue, malaise, fever, sweats. (units unknown) (unknown) (unknown) (no date) (unknown) (unknown) GENERAL: [37] year old patient appears stated age. Well-developed patient, in (units unknown) (unknown) (unknown) (no date) (unknown) (unknown) : Denies dys uria, frequency, incontinence, hematuria, urinary retention. (units unknown) (unknown) (unknown) (no date) (unknown) (unknown) General (units unknown) (unknown) (unknown) (no date) (unknown) (unknown) HEAD: Atraumat ic. Normocephalic. (units unknown) (unknown) (unknown) (no date) (unknown) (unknown) HEENT: Denies sinus pain, ear pain, sore throat, difficulty swallowing, (units unknown) (unknown) (unknown) (no date) (unknown) (unknown) HPI - General Adult (units unknown) (unknown) (unknown) (no date) (unknown) (unknown) HPI narrative: (unit s unknown) (unknown) (unknown) (no date) (unknown) (unknown) He denies it h is leg is weak but that is hip seems to give out on him. He (units unknown) (unknown) (unknown) (no date) (unknown) (unknown) History of Pre sent Illness (units unknown) (unknown) (unknown) (no date) (unknown) (unknown) Imaging review ed: Again likely above we had shared decision-making and reviewed (units unknown) (unknown) (unknown) (no date) (unknown) (unknown) Initial Vital Signs (units unknown) (unknown) (unknown) (no date) (unknown) (unknown) Initial Vital Signs: (units unknown) (unknown) (unknown) (no date) (unknown) (unknown) Instructions: DI for Carpal Tunnel Syndrome (units unknown) (unknown) (unknown) (no date) (unknown) (unknown) [address] [address] (units unknown) (unknown) (unknown) (no date) (unknown) (unknown) Labs reviewed and interpreted by myself: We had extensive discussion today at (units unknown) (unknown) (unknown) (no date) (unknown) (unknown) MDM Narrative (units unknown) (unknown) (unknown) (no date) (unknown) (unknown) MUSCULOSKELETA L: See HPI (units unknown) (unknown) (unknown) (no date) (unknown) (unknown) Medical Decisi on Making (units unknown) (unknown) (unknown) (no date) (unknown) (unknown) Medical decisi on making narrative: (units unknown) (unknown) (unknown) (no date) (unknown) (unknown) Medication Instructions Recorded (units unknown) (unknown) (unknown) (no date) (unknown) (unknown) Mode of arriva l: Ambulatory (units unknown) (unknown) (unknown) (no date) (unknown) (unknown) Multiple etiol ogies for patient's symptoms considered including, but not limited (units unknown) (unknown) (unknown) (no date) (unknown) (unknown) NECK: Trachea midline. Non tender (units unknown) (unknown) (unknown) (no date) (unknown) (unknown) NEURO: AOx3. (units unknown) (unknown) (unknown) (no date) (unknown) (unknown) NEUROLOGIC: See HPI (units unknown) (unknown) (unknown) (no date) (unknown) (unknown) Narrative (units unknown) (unknown) (unknown) (no date) (unknown) (unknown) Narrative: (units unknown) (unknown) (unknown) (no date) (unknown) (unknown) New (units unknown) (unknown) (unknown) (no date) (unknown) (unknown) No Known Drug Allergies Allergy Verified 02/06/23 20:17 (units unknown) (unknown) (unknown) (no date) (unknown) (unknown) La Ward] (units unknown) (unknown) (unknown) (no date) (unknown) (unknown) Oxygen Deliver y Method Room Air 02/06/23 20:12 (units unknown) (unknown) (unknown) (no date) (unknown) (unknown) Oxygen Deliver y Method Room Air Room Air (units unknown) (unknown) (unknown) (no date) (unknown) (unknown) PSYCHIATRIC: N o concerning psychosocial issues. (units unknown) (unknown) (unknown) (no date) (unknown) (unknown) Patient Dispos ition: Home (units unknown) (unknown) (unknown) (no date) (unknown) (unknown) Patient History (uni ts unknown) (unknown) (unknown) (no date) (unknown) (unknown) Patient has mu ltiple, widespread complaint without any significant change. His (units unknown) (unknown) (unknown) (no date) (unknown) (unknown) Patient: Serg Castaneda Osvaldo (units unknown) (unknown) (unknown) (no date) (unknown) (unknown) Prescriptions: (unit s unknown) (unknown) (unknown) (no date) (unknown) (unknown) Previous Rx's (units unknown) (unknown) (unknown) (no date) (unknown) (unknown) Primary Histor jose de jesus: patient (units unknown) (unknown) (unknown) (no date) (unknown) (unknown) Prior Charts r eviewed in our EMR (units unknown) (unknown) (unknown) (no date) (unknown) (unknown) Pulse Oximetry 96 02/06/23 20:12 (units unknown) (unknown) (unknown) (no date) (unknown) (unknown) Pulse Oximetry 96 95 (units unknown) (unknown) (unknown) (no date) (unknown) (unknown) Pulse Rate 97 H 02/06/23 20:12 (units unknown) (unknown) (unknown) (no date) (unknown) (unknown) Pulse Rate 97 H 72 ( units unknown) (unknown) (unknown) (no date) (unknown) (unknown) R#: [id number] (unit s unknown) (unknown) (unknown) (no date) (unknown) (unknown) RESPIRATORY: C lear to auscultation. Breath sounds equal bilaterally. No wheezes, (units unknown) (unknown) (unknown) (no date) (unknown) (unknown) RESPIRATORY: D enies dyspnea, cough, wheezing, hemoptysis, sputum. (units unknown) (unknown) (unknown) (no date) (unknown) (unknown) Referrals: (units unknown) (unknown) (unknown) (no date) (unknown) (unknown) Related Data (units unknown) (unknown) (unknown) (no date) (unknown) (unknown) Respiratory Ra te 15 02/06/23 20:12 (units unknown) (unknown) (unknown) (no date) (unknown) (unknown) Respiratory Rate 15 (units unknown) (unknown) (unknown) (no date) (unknown) (unknown) Return precaut ions discussed with patient/family whom verbalize understanding of (units unknown) (unknown) (unknown) (no date) (unknown) (unknown) Review of Systems (u nits unknown) (unknown) (unknown) (no date) (unknown) (unknown) Rheumatoid art hritis. 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) (unknown) (unknown) (no date) (unknown) (unknown) Rx Instructions: (un its unknown) (unknown) (unknown) (no date) (unknown) (unknown) SKIN: Denies r coty, skin lesions, or other (units unknown) (unknown) (unknown) (no date) (unknown) (unknown) SKIN: No rash or erythema of visible areas (units unknown) (unknown) (unknown) (no date) (unknown) (unknown) See Rx Instruc tions .ROUTE .COMPLEX Qty: 21 0RF (units unknown) (unknown) (unknown) (no date) (unknown) (unknown) Signed By: (units unknown) (unknown) (unknown) (no date) (unknown) (unknown) Smoking Status : Unknown if ever smoked (units unknown) (unknown) (unknown) (no date) (unknown) (unknown) Social History (units unknown) (unknown) (unknown) (no date) (unknown) (unknown) Source: patient (uni ts unknown) (unknown) (unknown) (no date) (unknown) (unknown) Stand Alone Fo mary: Patient Portal/API (units unknown) (unknown) (unknown) (no date) (unknown) (unknown) Stated complai nt: Swelling, hip pain (units unknown) (unknown) (unknown) (no date) (unknown) (unknown) Substance Use Type: does not use (units unknown) (unknown) (unknown) (no date) (unknown) (unknown) Temperature 98 .5 F 02/06/23 20:12 (units unknown) (unknown) (unknown) (no date) (unknown) (unknown) Temperature 98.5 F ( units unknown) (unknown) (unknown) (no date) (unknown) (unknown) Time Seen by Harris mckinley: 02/06/23 20:22 (units unknown) (unknown) (unknown) (no date) (unknown) (unknown) Vital Signs - 8 hr ( units unknown) (unknown) (unknown) (no date) (unknown) (unknown) Vital Signs (units unknown) (unknown) (unknown) (no date) (unknown) (unknown) Vital signs: (units unknown) (unknown) (unknown) (no date) (unknown) (unknown) Chicho Penn, [employer]RILLER [Primary Care Provider] (units unknown) (unknown) (unknown) (no date) (unknown) (unknown) [ ] New medica tion written as a paper prescription (units unknown) (unknown) (unknown) (no date) (unknown) (unknown) [ ] No new med ications given (units unknown) (unknown) (unknown) (no date) (unknown) (unknown) [37] year old patient presents with back pain, hip pain, finger numbness (units unknown) (unknown) (unknown) (no date) (unknown) (unknown) [x ] New medic ation prescriptions sent to your pharmacy: [ [facility] in (units unknown) (unknown) (unknown) (no date) (unknown) (unknown) a dose pack ([place] fontana (Georges)) #21 ea (units unknown) (unknown) (unknown) (no date) (unknown) (unknown) alcohol intake frequency: holidays/special occasions only (units unknown) (unknown) (unknown) (no date) (unknown) (unknown) and agree that x-ray or even CT are not likely to change the outcome. He (units unknown) (unknown) (unknown) (no date) (unknown) (unknown) and extensive workup about 1 week ago at the [facility] with lab (units unknown) (unknown) (unknown) (no date) (unknown) (unknown) appointment. L et them know you were seen in the Emergency Department and that we (units unknown) (unknown) (unknown) (no date) (unknown) (unknown) as lower extre mity weakness, depressed reflexes, loss of bowel or bladder. I (units unknown) (unknown) (unknown) (no date) (unknown) (unknown) ask that you b e seen in follow up. We will electronically transmit a record of (units unknown) (unknown) (unknown) (no date) (unknown) (unknown) breath or coug h. He is had no nausea, vomiting or diarrhea. Denies dysuria, (units unknown) (unknown) (unknown) (no date) (unknown) (unknown) concerning sym ptoms, such as [fever greater than 101 F, shaking chills, (units unknown) (unknown) (unknown) (no date) (unknown) (unknown) consistent wit h a lumbar radiculopathy, there are no signs of cauda equina such (units unknown) (unknown) (unknown) (no date) (unknown) (unknown) constipation, melena . (units unknown) (unknown) (unknown) (no date) (unknown) (unknown) control of bow el or bladder. He states that his doctors are evaluating him for (units unknown) (unknown) (unknown) (no date) (unknown) (unknown) denies fever o r chills, direct trauma as stated, use of anticoagulants, loss of (units unknown) (unknown) (unknown) (no date) (unknown) (unknown) diagnosis and plan ( units unknown) (unknown) (unknown) (no date) (unknown) (unknown) discussed appr opriate imaging available in the emergency department at this time (units unknown) (unknown) (unknown) (no date) (unknown) (unknown) discussed your history and physical exam are very reassuring, you just had a (units unknown) (unknown) (unknown) (no date) (unknown) (unknown) discussion of risks and benefits we elected to hold off on more labs today. (units unknown) (unknown) (unknown) (no date) (unknown) (unknown) dizziness. (units unknown) (unknown) (unknown) (no date) (unknown) (unknown) does not curre ntly take them. Additionally he has been having problems with his (units unknown) (unknown) (unknown) (no date) (unknown) (unknown) encouraged him to increase his routine dosing of anti-inflammatories and wrote a (units unknown) (unknown) (unknown) (no date) (unknown) (unknown) frequency or u rgency. He denies weight gain or weight loss. He is had no (units unknown) (unknown) (unknown) (no date) (unknown) (unknown) gabapentin. He states gabapentin and steroids traditionally do not work and he (units unknown) (unknown) (unknown) (no date) (unknown) (unknown) giving out on occasion raises question of a possible labral injury. We (units unknown) (unknown) (unknown) (no date) (unknown) (unknown) had would be indicated. He was able to access his MyChart and reviewed his labs (units unknown) (unknown) (unknown) (no date) (unknown) (unknown) history and ph ysical exam are reassuring and there are no indications of any (units unknown) (unknown) (unknown) (no date) (unknown) (unknown) icterus. No in jection or drainage. (units unknown) (unknown) (unknown) (no date) (unknown) (unknown) including CBC, CMP, inflammatory markers which were all very reassuring. After (units unknown) (unknown) (unknown) (no date) (unknown) (unknown) injury. He sta anita that he was seen and evaluated by his primary care provider (units unknown) (unknown) (unknown) (no date) (unknown) (unknown) intervention. We did discuss repeating labs and imaging but elected to hold off (units unknown) (unknown) (unknown) (no date) (unknown) (unknown) lightheadednes s. He is had no fever or chills. Denies chest pain, shortness of (units unknown) (unknown) (unknown) (no date) (unknown) (unknown) medication josh nge or dietary change (units unknown) (unknown) (unknown) (no date) (unknown) (unknown) methylpredniso lone 4 mg tablets in See Rx Instructions PO .COMPLEX 02/06/23 (units unknown) (unknown) (unknown) (no date) (unknown) (unknown) methylpredniso lone [Medrol (Georges)] 4 mg tablets,dose pack (units unknown) (unknown) (unknown) (no date) (unknown) (unknown) mild distress. (unit s unknown) (unknown) (unknown) (no date) (unknown) (unknown) multiple compl aints including low back pain and hip pain in the absence of (units unknown) (unknown) (unknown) (no date) (unknown) (unknown) multiple medic ations including anti-inflammatory, muscle relaxers, and even (units unknown) (unknown) (unknown) (no date) (unknown) (unknown) notes decrease d range of motion and muscle spasm, but no CVA tenderness, or (units unknown) (unknown) (unknown) (no date) (unknown) (unknown) orally per pac kage directions (units unknown) (unknown) (unknown) (no date) (unknown) (unknown) pain that radi ates into his left lateral it for some time and has been on (units unknown) (unknown) (unknown) (no date) (unknown) (unknown) per our discus sions noted above. Is low back and left hip pain are most likely (units unknown) (unknown) (unknown) (no date) (unknown) (unknown) prescription f or a Medrol Dosepak. He states that previously gabapentin did not (units unknown) (unknown) (unknown) (no date) (unknown) (unknown) radiculopathy and right hip pain possibly related to labral injury. As we (units unknown) (unknown) (unknown) (no date) (unknown) (unknown) rales, or rhonchi. ( units unknown) (unknown) (unknown) (no date) (unknown) (unknown) right hand wit h Phalen's and Tinel's (units unknown) (unknown) (unknown) (no date) (unknown) (unknown) right hip and states that on occasion it seems to pop and even give out on him. (units unknown) (unknown) (unknown) (no date) (unknown) (unknown) risks and bene fits, pros and cons of repeat imaging. He is had no change in his (units unknown) (unknown) (unknown) (no date) (unknown) (unknown) saddle anesthe dana, and decreased reflexes, decreased sensation or strength. (units unknown) (unknown) (unknown) (no date) (unknown) (unknown) surgical emerg encies or diagnoses requiring a specific or immediate (units unknown) (unknown) (unknown) (no date) (unknown) (unknown) symptoms and n o traumatic injury in there were no findings on recent x-rays that (units unknown) (unknown) (unknown) (no date) (unknown) (unknown) the bedside wh ether another round of labs given the full complement that he just (units unknown) (unknown) (unknown) (no date) (unknown) (unknown) the thumb, ind ex, and middle finger of his R hand feel numb and have for some (units unknown) (unknown) (unknown) (no date) (unknown) (unknown) there is littl e To add by repeating these tests tonight (units unknown) (unknown) (unknown) (no date) (unknown) (unknown) time. He denie s any systemic complaints such as dizziness, weakness or (units unknown) (unknown) (unknown) (no date) (unknown) (unknown) to be helpful. Return precautions discussed (units unknown) (unknown) (unknown) (no date) (unknown) (unknown) to: [Lumbar radiculopathy, cauda equina, labral injury, arthritis vs. other] (units unknown) (unknown) (unknown) (no date) (unknown) (unknown) today's note i f your PCP is in our system (units unknown) (unknown) (unknown) (no date) (unknown) (unknown) tonsillar hype rtrophy or exudate. Airway patent. (units unknown) (unknown) (unknown) (no date) (unknown) (unknown) understands th at pursuit of MRI through his primary care provider is most likely (units unknown) (unknown) (unknown) (no date) (unknown) (unknown) verbalization of understanding (units unknown) (unknown) (unknown) (no date) (unknown) (unknown) vertebral poin t tenderness. There are no symptoms of cauda equina such as (units unknown) (unknown) (unknown) (no date) (unknown) (unknown) very thorough workup including labs and imaging and we sure the opinion that (units unknown) (unknown) (unknown) (no date) (unknown) (unknown) were reviewed on his MyChart. We elected to hold off on imaging for today. (units unknown) (unknown) (unknown) (no date) (unknown) (unknown) work and imagi ng that was largely unremarkable. He has been having low back (units unknown) (unknown) (unknown) (no date) (unknown) (unknown) work for him s o another prescription was not written. His right hip popping and (units unknown) (unknown) (unknown) (no date) (unknown) (unknown) worsening pain , persistent vomiting or other bothersome symptoms] (units unknown) (unknown) Social History date description facility 2023-02-06 00:00 Tobacco smoking consumption nidia reis ([facility] Vital Signs date measurement value units 2023-02-06 00:00 BMI 52.0 kg/m2 2023-02-06 00:00 BP_diastolic 76 mmHg 2023-02-06 00:00 BP_systolic 144 mmHg 2023-02-06 00:00 heart_rate 72 /min 2023-02-06 00:00 height_metric 198.12 cm 2023-02-06 00:00 height_standard 78 in 2023-02-06 00:00 o2_saturation 95 % 2023-02-06 00:00 respiration_rate 15 /min 2023-02-06 00:00 temperature_metric 36.94 C 2023-02-06 00:00 temperature_standard 98.5 F 2023-02-06 00:00 weight_metric 204.11 kg 2023-02-06 00:00 weight_standard 449.99 lb
[2023-03-18 07:06] VITALS: BP 149/102
--- NOTE | 2023-03-18 07:30 | ED Physician Documentation ---
PD HPI HEENT - Stated complaint Stated Complaint: COUGH - Chief complaint Chief Complaint: Heent - History obtained from History obtained from: Patient - Additional information Additional information: The patient comes to the emergency department with chief complaint of productive cough for the last week with fever. The patient states that started with a mildly productive cough but the cough has just gotten increasingly strong and productive and he is running fevers up to 101. The patient states that he is bringing up thick yellow sputum. He has a history of this previously. He denies any GI symptoms. He is not short of breath. No sore throat, other than a little soreness from coughing. No other complaints at this time. PD PAST MEDICAL HISTORY - Past Medical History Cardiovascular: Deep vein thrombosis Respiratory: None Neuro: None Endocrine/Autoimmune: None Psych: ADD/ADHD Musculoskeletal: Chronic back pain, Other - Past Surgical History Past Surgical History: Yes - Present Medications Home Medications: Ambulatory Orders Medication Instructions Recorded Confirmed Albuterol Sulf [Ventolin Hfa 2 - 3 puffs INH QID PRN 14 Days #1 02/25/22 01/29/23 Inhaler] inhaler lisinopriL [Lisinopril] 20 mg PO DAILY 02/25/22 01/29/23 Ibuprofen [Motrin] 1 tablet PO Q8H PRN #30 tablet 01/29/23 Lidocaine Patch 5% [Lidoderm Patch] 1 patch TOP DAILY PRN #10 patch 01/29/23 Rosuvastatin Calcium [Crestor] 10 mg PO DAILY 01/29/23 01/29/23 metFORMIN [Glucophage] 1 tab PO BID 01/29/23 01/29/23 Azithromycin [Zithromax] 0 mg PO DAILY #6 tablet 03/18/23 - Allergies Allergies/Adverse Reactions: Allergies Allergy/AdvReac Type Severity Reaction Status Date / Time Penicillins Allergy Edema Verified 03/18/23 07:06 - Social History Does the pt smoke?: No Smoking Status: Never smoker Does the pt drink ETOH?: No Does the pt have substance abuse?: No - Immunizations Immunizations are current?: Yes - POLST Patient has POLST: No PD ED PE NORMAL - Vitals Vital signs reviewed: Yes - General General: Alert and oriented X 3, No acute distress, Well developed/nourished - HEENT HEENT: Atraumatic, PERRL, EOMI, Moist mucous membranes - Neck Neck: Supple, no meningeal sign - Cardiac Cardiac: RRR, No murmur, Strong equal pulses - Respiratory Respiratory: No respiratory distress, Clear bilaterally (Mild upper airway sounds but otherwise clear) - Derm Derm: Normal color, Warm and dry, No rash - Extremities Extremities: No deformity - Neuro Neuro: Alert and oriented X 3 - Psych Psych: Normal mood, Normal affect Results - Vitals Vitals: Vital Signs - 24 hr 03/18/23 06:57 Temperature 37.2 C Heart Rate 79 Respiratory 18 Rate Blood Pressure 149/102 H O2 Saturation 94 Oxygen O2 Source Room air - Rads (name of study) Chest x-ray Relevant Findings:: EMP independent interpretation of test (Negative) PD Medical Decision Making - ED course Complexity details: reviewed results, re-evaluated patient, considered differential, d/w patient ED course: The patient was worked up with x-ray, which was found to be negative, and respiratory PCR panel, which is pending at this time. Given the fairly isolated cough which was increasingly productive of thick sputum, as well as the patient's fevers, I felt it was reasonable to treat him after a week with antibiotics. I have sent a prescription to the pharmacy of the patient's choice. We have discussed the usual indications for follow-up and return. Departure - Departure Disposition: 01 Home, Self Care Clinical Impression: Bronchitis, Upper respiratory infection, viral Condition: Stable Instructions: ED Viral Syndrome Prescriptions: Azithromycin [Zithromax] 0 mg PO DAILY #6 tablet Comments: You most likely have a viral illness with superimposed bacterial bronchitis. A prescription for your antibiotics has been electronically transmitted to the [facility] pharmacy in [place]. You should pick it up and start the antibiotics today. Your chest x-ray does not show pneumonia. A viral panel has been obtained and is pending at this time. If there are any significant positive results, we will let you know.
--- NOTE | 2023-03-18 07:49 | XRAY Report ---
PROCEDURE: Chest 1 View X-Ray INDICATIONS: cough TECHNIQUE: One view of the chest was acquired. COMPARISON: 02/25/2022 FINDINGS: Surgical changes and devices: None. Lungs and pleura: No pleural effusions or pneumothorax. Mild diffuse reticulonodular pulmonary opaci ty. Mediastinum: Mediastinal contours appear normal. Heart size is normal. Bones and chest wall: No suspicious bony lesions. Overlying soft tissues appear unremarkable. IMPRESSION: Mild atypical pneumonia. Reviewed by: Kate Garvey MD on 03/18/2023 7:48 AM PDT Approved by: Kate Garvey MD on 03/18/2023 7:48 AM PDT Station ID: [id number]
[2023-03-18 08:26] LABS: B. PARAPERTUSSIS- RESP PCR PAN NOT DETECTED; B. PERTUSSIS- RESP PCR PANEL NOT DETECTED; C. PNEUMONIAE- RESP PCR PANEL NOT DETECTED; CORONAVIRUS 229E-RESP PCR NOT DETECTED; CORONAVIRUS HKU1-RESP PCR NOT DETECTED; CORONAVIRUS NL63-RESP PCR NOT DETECTED; CORONAVIRUS OC43-RESP PCR NOT DETECTED; HUMAN METAPNEUMOVIRUS NOT DETECTED; INFLUENZA A- RESP PCR PANEL NOT DETECTED; INFLUENZA B - RESP PCR PANEL NOT DETECTED; M. PNEUMONIAE- RESP PCR PANEL NOT DETECTED; PARAINFLUENZA VIRUS 1 NOT DETECTED; PARAINFLUENZA VIRUS 2 NOT DETECTED; PARAINFLUENZA VIRUS 3 NOT DETECTED; PARAINFLUENZA VIRUS 4 NOT DETECTED; RHINOVIRUS/ENTEROVIRUS NOT DETECTED; RSV- RESP PCR PANEL NOT DETECTED; SARS-CoV-2 -RESP PCR PANEL NOT DETECTED
== END 2023-03-18 07:38 | disposition home or self-care (01) ==
LOC: ED 06:49
DX: J40 Bronchitis, not specified as acute or chronic (principal); J06.9 Acute upper respiratory infection, unspecified; Z20.822 Contact with and (suspected) exposure to COVID-19
CPT/HCPCS: 87633; 99284

== ENCOUNTER 2023-07-19 07:57 | Outpatient (CLI) | payer MEDICAID ==
[2023-07-19 12:15] LABS: BASOPHILS % (AUTO) 0.7 %; EOSINOPHILS # (AUTO) 0.2 10^3/uL (0.0-0.7); HCT - HEMATOCRIT 46.2 % (42.0-52.0); LYMPHOCYTES # (AUTO) 2.2 10^3/uL (1.5-3.5); LYMPHOCYTES % (AUTO) 37.2 %; MEAN CORPUSCULAR HEMOGLOBIN 27.4 pg (27.0-31.0); MEAN CORPUSCULAR HGB CONC 32.5 g/dL (32.0-36.0); MEAN CORPUSCULAR VOLUME 84.5 fL (80.0-94.0); MEAN PLATELET VOLUME 9.5 fL (7.4-11.4); MONOCYTES # (AUTO) 0.7 10^3/uL (0.0-1.0); MONOCYTES % (AUTO) 11.1 %; NEUTROPHILS # (AUTO) 2.8 10^3/uL (1.5-6.6); NEUTROPHILS % (AUTO) 46.8 %; PLT - PLATELET COUNT 205 10^3/uL (130-450); RED BLOOD COUNT 5.47 10^6/uL (4.70-6.10)
[2023-07-19 12:35] LABS: ALBUMIN 4.4 g/dL (3.2-5.5); ALBUMIN/GLOBULIN RATIO 1.3 (1.0-2.2); ALKALINE PHOSPHATASE 72 IU/L (42-121); ALT ALANINE AMINOTRANSFERASE 42 IU/L (10-60); AST ASPARTATE AMINOTRANSFERASE 26 IU/L (10-42); BILIRUBIN,TOTAL 0.5 mg/dL (0.2-1.0); BUN - BLOOD UREA NITROGEN 19 mg/dL (6-20); CARBON DIOXIDE - CO2 32 mmol/L (21-32); CHLORIDE 99 mmol/L (101-111); CHOL/HDL RATIO 4.2 (<5.0); CHOLESTEROL 191 mg/dL; GFR - MDRD 102 (>89); GLUCOSE 114 mg/dL (74-104); HDL CHOLESTEROL 45 mg/dL; LDL CHOLESTEROL,CALCULATED 109 mg/dL; LDL/HDL RATIO 2.4 (<3.6); POTASSIUM 4.7 mmol/L (3.5-4.5); SODIUM 136 mmol/L (135-145); TOTAL PROTEIN 7.7 g/dL (6.4-8.9); TRIGLYCERIDES 186 mg/dL (48-352); VLDL CHOLESTEROL 37 mg/dL
[2023-07-19 12:42] LABS: ESTIMATED AVERAGE GLUCOSE 140 mg/dL (70-100); HEMOGLOBIN A1c% 6.5 % (4.27-6.07)
[2023-07-19 13:20] LABS: THYROID STIMULATING HORMONE 2.84 uIU/mL (0.34-5.60)
== END 2023-07-19 07:58 | disposition home or self-care (01) ==
LOC: LAB.N 07:57
PROVIDERS: ATTEND Nurse Practitioner Family
DX: I10 Essential (primary) hypertension (principal); E78.5 Hyperlipidemia, unspecified; E11.9 Type 2 diabetes mellitus without complications
CPT/HCPCS: 36415; 80053; 80061; 83036; 83721; 84443; 85025

== ENCOUNTER 2023-09-15 22:40 | Emergency (ER) | payer MEDICAID ==
--- NOTE | 2023-09-16 01:36 | ED Physician Documentation ---
PD HPI BACK PAIN - Stated complaint Stated Complaint: BACK PX - Chief complaint Chief Complaint: Back Pain - History obtained from History obtained from: Patient - Additional information Additional information: patient c/o one year of low back pain, midline and left paralumber lower back pain. He says this is chronic but worse past 1-2 weeks which he attributes to working harder and longer hours in that timeframe. Pain is worse with movement, partially relieved with rest. He has been taking 800mg ibuprofen without adequate relief. Denies numbness, weakness, bowel/bladder incontinence.Denies recent injury. Review of Systems Constitutional: denies: Fever Musculoskeletal: reports: Back pain Neurologic: denies: Generalized weakness, Focal weakness, Numbness PD PAST MEDICAL HISTORY - Past Medical History Past Medical History: Yes Cardiovascular: Deep vein thrombosis Respiratory: None Neuro: None Endocrine/Autoimmune: None Psych: ADD/ADHD Musculoskeletal: Chronic back pain, Other - Past Surgical History Past Surgical History: Yes - Present Medications Home Medications: Ambulatory Orders Medication Instructions Recorded Confirmed Albuterol Sulf [Ventolin Hfa 2 - 3 puffs INH QID PRN 14 Days #1 02/25/22 01/29/23 Inhaler] inhaler lisinopriL [Lisinopril] 20 mg PO DAILY 02/25/22 01/29/23 Ibuprofen [Motrin] 1 tablet PO Q8H PRN #30 tablet 01/29/23 Lidocaine Patch 5% [Lidoderm Patch] 1 patch TOP DAILY PRN #10 patch 01/29/23 Rosuvastatin Calcium [Crestor] 10 mg PO DAILY 01/29/23 01/29/23 metFORMIN [Glucophage] 1 tab PO BID 01/29/23 01/29/23 Azithromycin [Zithromax] 0 mg PO DAILY #6 tablet 03/18/23 Oxycodone HCl/Acetaminophen 1 - 2 each PO Q6H PRN #14 tablet 09/16/23 [Percocet 5-325 mg Tablet] - Allergies Allergies/Adverse Reactions: Allergies Allergy/AdvReac Type Severity Reaction Status Date / Time Penicillins Allergy Edema Verified 09/15/23 22:50 - Social History Does the pt smoke?: No Smoking Status: Never smoker Does the pt drink ETOH?: No Does the pt have substance abuse?: No - Immunizations Immunizations are current?: Yes - POLST Patient has POLST: No PD ED PE NORMAL - Vitals Vital signs reviewed: Yes - General General: Alert and oriented X 3, No acute distress, Well developed/nourished - Cardiac Cardiac: RRR, No murmur - Respiratory Respiratory: No respiratory distress, Clear bilaterally - Derm Derm: Normal color, Warm and dry, No rash - Neuro Neuro: No motor deficit (5/5 dorsi/plantarlfexion), No sensory deficit (LTS intact BLE) Results - Vitals Vitals: Oxygen O2 Source Room air PD Medical Decision Making - ED course Complexity details: considered differential, d/w patient ED course: c/o exacerbation of his chronic back pain. Given percocet take-home pack with rx for same . Return precautions discussed. Advised to follow up with PCP, next available appointment. Departure - Departure Disposition: , Self Care Clinical Impression: Sciatica Qualifiers: Laterality: left Qualified Code(s): M54.32 - Sciatica, left side Condition: Good Instructions: ED Sciatica Prescriptions: Oxycodone HCl/Acetaminophen [Percocet 5-325 mg Tablet] 1 - 2 each PO Q6H PRN #14 tablet PRN Reason: pain Comments: I have electronically submitted a prescription for Percocet (narcotic/opiate pain medication) to the [facility] pharmacy in [place]. Contact your primary care provider when the office is next open to arrange for follow- up/reevaluation. I am prescribing a short course of narcotic pain medication for you. These are potentially dangerous and addictive medications that should be used carefully. These medications may constipate you. Take an npkb-[id number] stool softener (docusate) twice daily with plenty of water while taking these medications. If you go 24 hours without a bowel movement, take uvzc-[id number] miralax, per package instructions. Do not drink or drive while taking these medications. If you received narcotic or sedating medications while in the emergency department, do not drive for 24 hours. Store this medication in a safe, secure place and out of reach of children. It is a violation of federal law to give or sell this medication to another person or to use in a manner other than prescribed. The ED will not refill narcotic prescriptions, including prescriptions lost or stolen. To dispose of unwanted medications: 1. [facility] at [address] in [place] has a medication drop box. They accept prescription medications (in pill form) Sunday through Sunday 9:00 a.m. to 5:00 p.m. 2. The [facility] accepts prescription medications (in pill form only) for disposal year round. Call for more information. 3. Contact the [facility] for the next [facility] sponsored prescription drug collection event. , [phone], or [phone]; Discharge Date/Time: 09/16/23 02:51
[2023-09-16] MEDS ORDERED: oxyCODONE/ACET 5/325 Prepack 4 PO STA (02:36)
[2023-09-16 03:01] VITALS: BP 166/115; O2SAT 99
== END 2023-09-16 02:51 | disposition home or self-care (01) ==
LOC: ED 22:40
DX: M54.32 Sciatica, left side (principal)
CPT/HCPCS: 99282; 99283

== ENCOUNTER 2023-10-16 19:11 | Emergency (ER) | payer MEDICAID ==
[2023-10-16 19:21] VITALS: BP 142/79
[2023-10-16] MEDS ORDERED: IPRATROPIUM/ALBUTEROL 3 ML NEB INH STA (19:59)
--- NOTE | 2023-10-16 20:02 | ED Physician Documentation ---
History of Present Illness - Stated complaint Stated Complaint: FEVER/COUGH/CONGESTION - Chief complaint Chief Complaint: Resp - History obtained from History obtained from: Patient - History of Present Illness Pain level max: 0 Pain level now: 0 - Additonal information Additional information: Patient is a 38-year-old male who presents to the emergency department with rhinorrhea, cough and congestion. This started about a week ago. He states that he had fevers initially, the fevers then resolved but came back yesterday. He has used inhalers in the past but does not use inhalers now. Not having any pain. The cough is dry. No sore throat. No nausea, vomiting, diarrhea. No rashes. Nothing seems to make it better or worse. Does not smoke. Review of Systems Constitutional: reports: Fever (Patient reports fevers at home, Tmax 101), Chills Nose: reports: Rhinorrhea / runny nose, Congestion Throat: denies: Sore throat Cardiac: denies: Chest pain / pressure, Palpitations Respiratory: reports: Cough, Wheezing GI: denies: Abdominal Pain, Vomiting, Diarrhea : denies: Dysuria Skin: denies: Rash PD PAST MEDICAL HISTORY - Past Medical History Past Medical History: Yes Cardiovascular: Deep vein thrombosis Respiratory: None Neuro: None Endocrine/Autoimmune: None Psych: ADD/ADHD Musculoskeletal: Chronic back pain, Other - Past Surgical History Past Surgical History: Yes - Present Medications Home Medications: Ambulatory Orders Medication Instructions Recorded Confirmed lisinopriL [Lisinopril] 40 mg PO DAILY 02/25/22 10/16/23 Ibuprofen [Motrin] 1 tablet PO Q8H PRN #30 tablet 01/29/23 Lidocaine Patch 5% [Lidoderm Patch] 1 patch TOP DAILY PRN #10 patch 01/29/23 Rosuvastatin Calcium [Crestor] 10 mg PO DAILY 01/29/23 10/16/23 metFORMIN [Glucophage] 1 tab PO BID 01/29/23 10/16/23 Oxycodone HCl/Acetaminophen 1 - 2 each PO Q6H PRN #14 tablet 09/16/23 [Percocet 5-325 mg Tablet] Albuterol Sulf [Ventolin Hfa 1 - 2 puffs INH Q4HR PRN #1 each 10/16/23 Inhaler] Benzonatate [Tessalon] 200 mg PO TID PRN #30 cap 10/16/23 - Allergies Allergies/Adverse Reactions: Allergies Allergy/AdvReac Type Severity Reaction Status Date / Time Penicillins Allergy Edema Verified 10/16/23 19:16 - Social History Does the pt smoke?: No Smoking Status: Never smoker Does the pt drink ETOH?: No Does the pt have substance abuse?: No - Immunizations Immunizations are current?: Yes - POLST Patient has POLST: No PD ED PE NORMAL - Vitals Vital signs reviewed: Yes - General General: Alert and oriented X 3, No acute distress - HEENT HEENT: PERRL, Moist mucous membranes, Pharynx benign - Neck Neck: Supple, no meningeal sign - Cardiac Cardiac: RRR - Respiratory Respiratory: No respiratory distress, Other (Mild wheezing bilaterally) - Abdomen Abdomen: Soft, Non tender, Non distended - Derm Derm: Warm and dry, No rash - Neuro Neuro: Alert and oriented X 3 - Psych Psych: Normal mood, Normal affect Results - Vitals Vitals: Vital Signs - 24 hr 10/16/23 10/16/23 10/16/23 19:16 20:15 21:01 Temperature 36.8 C Heart Rate 80 90 89 Respiratory 22 28 H 16 Rate Blood Pressure 142/79 H O2 Saturation 96 93 Oxygen O2 Source Room air - Labs Labs: Laboratory Tests 10/16/23 19:00 Nasal Adenovirus (PCR) NOT DETECTED Nasal B. parapertussis DNA (PCR) NOT DETECTED Nasal Coronavir 229E PCR NOT DETECTED Nasal Coronavir HKU1 PCR NOT DETECTED Nasal Coronavir NL63 PCR NOT DETECTED Nasal Coronavir OC43 PCR NOT DETECTED Nasal Enterovir/Rhinovir PCR NOT DETECTED Nasal Influ A H1 2009 PCR DETECTED A Nasal Influenza B PCR NOT DETECTED Nasal Parainfluen 1 PCR NOT DETECTED Nasal Parainfluen 2 PCR NOT DETECTED Nasal Parainfluen 3 PCR NOT DETECTED Nasal Parainfluen 4 PCR NOT DETECTED Nasal RSV (PCR) NOT DETECTED Nasal B.pertussis DNA PCR NOT DETECTED Nasal C.pneumoniae (PCR) NOT DETECTED Juan A Human Metapneumo PCR NOT DETECTED Nasal M.pneumoniae (PCR) NOT DETECTED Nasal SARS-CoV-2 (PCR) NOT DETECTED - Rads (name of study) Chest x-ray Relevant Findings:: Final report received, See rad report PD Medical Decision Making - ED course Complexity details: reviewed results, re-evaluated patient, considered differential, d/w patient ED course: Patient is positive for influenza A. Symptoms present for the past 1 week. Chest x-ray does not show any acute abnormalities. Feels better after nebulizer treatment. No hypoxia. No respiratory distress. Will place on albuterol for home. Tolerating p.o. without difficulty here. No abdominal pain, nausea, vomiting. No evidence of sepsis. Patient counseled regarding signs and symptoms for which I believe and urgent re-evaluation would be necessary. Patient with good understanding of and agreement to plan and is comfortable going home at this time This document was made in part using voice recognition software. While efforts are made to proofread this document, sound alike and grammatical errors may occur. Departure - Departure Disposition: 01 Home, Self Care Clinical Impression: Influenza A Condition: Good Instructions: ED Flu Follow-Up: Fatuma Penn ARNP [Primary Care Provider] - Within 1 week Prescriptions: Albuterol Sulf [Ventolin Hfa Inhaler] 1 - 2 puffs INH Q4HR PRN #1 each PRN Reason: Shortness Of Air/Wheezing Benzonatate [Tessalon] 200 mg PO TID PRN #30 cap PRN Reason: Cough Comments: You have tested positive for influenza A today. Your prescriptions were sent to [facility] in [place]. Please drink plenty of fluids and rest. Please return if you worsen. Your x-ray does not show any evidence of pneumonia. Forms: PCP List Discharge Date/Time: 10/16/23 21:02
[2023-10-16] MEDS ORDERED: IPRATROPIUM/ALBUTEROL 3 ML NEB INH ONE (20:07)
[2023-10-16 20:16] LABS: B. PARAPERTUSSIS- RESP PCR PAN NOT DETECTED; B. PERTUSSIS- RESP PCR PANEL NOT DETECTED; C. PNEUMONIAE- RESP PCR PANEL NOT DETECTED; CORONAVIRUS 229E-RESP PCR NOT DETECTED; CORONAVIRUS HKU1-RESP PCR NOT DETECTED; CORONAVIRUS NL63-RESP PCR NOT DETECTED; CORONAVIRUS OC43-RESP PCR NOT DETECTED; HUMAN METAPNEUMOVIRUS NOT DETECTED; INFLUENZA A H1 2009- RESP PCR DETECTED; INFLUENZA B - RESP PCR PANEL NOT DETECTED; M. PNEUMONIAE- RESP PCR PANEL NOT DETECTED; PARAINFLUENZA VIRUS 1 NOT DETECTED; PARAINFLUENZA VIRUS 2 NOT DETECTED; PARAINFLUENZA VIRUS 3 NOT DETECTED; PARAINFLUENZA VIRUS 4 NOT DETECTED; RHINOVIRUS/ENTEROVIRUS NOT DETECTED; RSV- RESP PCR PANEL NOT DETECTED; SARS-CoV-2 -RESP PCR PANEL NOT DETECTED
--- NOTE | 2023-10-16 20:25 | XRAY Report ---
PROCEDURE: Chest 2V INDICATIONS: cough TECHNIQUE: 2 views of the chest were acquired. COMPARISON: Chest x-ray, 10/16/2022. FINDINGS: Surgical changes and devices: None. Lungs and pleura: No pleural effusions or pneumothorax. Lungs are clear. Mediastinum: Mediastinal contours appear normal. Heart size is normal. Bones and chest wall: No suspicious bony lesions. Overlying soft tissues appear unremarkable. IMPRESSION: No acute cardiopulmonary process. Reviewed by: Rose Valderrama MD on 10/16/2023 8:24 PM PST Approved by: Rose Valderrama MD on 10/16/2023 8:24 PM PST Station ID: [id number]
[2023-10-16 21:08] VITALS: O2SAT 93
== END 2023-10-16 21:02 | disposition home or self-care (01) ==
LOC: ED 19:11
DX: J10.1 Influenza due to other identified influenza virus with other respiratory manifestations (principal); Z11.52 Encounter for screening for COVID-19
CPT/HCPCS: 87633; 94640; 94664; 99283

== ENCOUNTER 2023-11-29 09:50 | Outpatient (CLI) | payer MEDICAID ==
--- NOTE | 2023-11-29 10:16 | Sleep Patient Instructions ---
Sleep Center Visit Summary - Patient Visit Information Reason for Visit: Annual follow-up - Patient Instructions Additional Instructions: You will continue with CPAP therapy with pressure changed to 12 cmH2O. A supply prescription will be updated with your DME. We encourage you to continue to try to lose weight. Please follow up with the sleep care office in 1 year. - Clinic Information Contact: [facility] [address] [place] [address] [email or web address] T: [phone]
--- NOTE | 2023-11-29 10:25 | SLEEP CARE CONSULTATION ---
Information from patient questionnaire entered by Mariah Barragan. I have reviewed and concur with the information entered by Mariah Barragan. This document represents the service I personally performed and the decisions made by , Jovanna Riley ARNP. History of Present Illness Service Date and Time: 11/29/2023 0950 Previous diagnosis: Very Severe, Obstructive Sleep Apnea-Hypopnea Syndrome AHI: 98.9 (01/2022) Reason for follow up: first compliance Equipment type: CPAP (RESMED Airsense 11, s/u 01/2022) Equipment obtained from: Other ([facility]; getting supplies) Mask style: Nasal Mask brand: Respironics (Wisp) Backup mask available: No (will need to keep old mask when replaced) Last cushion change: long time, needing supplies Prior sleep studies: No Type of Sleep Study: Home sleep study (F/U HME STUDY, 01/23/2022 [facility] HPI additional information: GUSTAVO LEVIN was diagnosed to have very severe, AHI 98.9, obstructive sleep apnea-hypopnea syndrome and returned today for CPAP therapy first compliance follow-up. Sleep Study - Results Type of Sleep Study: Home sleep study (F/U HME STUDY, 01/23/2022 [facility],) Prior sleep studies: No CPAP Compliance Data - Data Reviewed with Patient Average duration of nightly device use: 5 hours 59 minutes Compliance rate %: 90 (04/15/23-11/26/23; 223/226 days used) Current pressure setting (cmH2O): 11 Average residual AHI: 7.1 Central apnea: 0 Obstructive apnea: 1 Hypopnea: 5.2 Average large leak: 18.3 L/min Compliance data discussion: Initial compliance: 70% with 24/30 days used. His pressure was at 5-20 cmH2O with median 14.1, average at 16.9 and maximum at 18.2. He had an average large leak of 11.2 L/min. Subjective Patient concerns: denies: aerophagia, mask discomfort, air blowing in eyes, mask leak noise, condensation in mask/hose, nasal congestion, dry mouth, nose, throat, epistaxis Observed to snore while using device: No Current pressure setting perceived as: comfortable On therapy, patient: reports: sleeping better, awakening more refreshed, being more awake and alert during the day, more rested overall. denies: drowsiness while driving Initial [place] Sleepiness Scale score: 10 (2021) Current [place] Sleepiness Scale score: 3 Allergies and Home Medications Known drug allergies: Yes (as listed) Drug allergies reviewed: Yes Home medication list reviewed: Yes (as listed) Allergy and home medication list: Allergies Penicillins Allergy (Verified 11/27/23 13:44) Edema Home Medications Medication Instructions Recorded Confirmed Last Taken Type lisinopriL [Lisinopril] 40 mg PO DAILY 02/25/22 10/16/23 01/28/23 History Rosuvastatin Calcium [Crestor] 10 mg PO DAILY 01/29/23 10/16/23 01/28/23 History metFORMIN [Glucophage] 1 tab PO BID 01/29/23 10/16/23 01/28/23 History Amlodipine Besylate 10 mg ORAL DAILY 11/29/23 11/29/23 Unknown History Chlorthalidone 25 mg ORAL DAILY 11/29/23 11/29/23 Unknown History Ibuprofen See Rx Instructions .ROUTE 11/29/23 11/29/23 Unknown History .COMPLEX PRN Sulfasalazine See Rx Instructions .ROUTE .COMPLEX 11/29/23 11/29/23 Unknown History Review of Systems Review of systems same as previous: Yes (pre-diabetes (type 2)) Physical Exam Vital signs obtained and entered by: JOVANNA KUMAR Blood Pressure: 140/85 (right arm) Cuff size: large Heart Rate: 81 O2 Saturation: 92 Height: 6 ft 6 in Weight: 495 lb 9.6 oz Weight change since last visit: 17 lb gain Body Mass Index: 57.2 BMI Classification: Morbidly Obese Impression and Plan 1. Obstructive Sleep Apnea-Hypopnea Syndrome, very severe, with good treatment compliance and fair apnea control with mildly elevated residual AHI. On CPAP therapy, the patient has better sleep quality and is more rested overall. His hypopnea index is elevated at 5.2, obstructive at 1 and central index at 0. He has an average large leak of 18.3 L/min. The patients pressure will be changed to autoCPAP 12 cmH20 for elevation of residual AHI. Patient advised to contact me if pressure change is uncomfortable so that it can be adjusted. Goals for apnea control discussed. Patient's apnea severity and rationale for treatment to reduce apnea, improve sleep quality and reduce cardiovascular and cerebrovas cular events was reviewed. I also reviewed the benefit of consistent device use of CPAP for hypertension and pre-diabetes. 2. Morbid Obesity, unspecified. Currently patients BMI is 57.2. Obesity in creases the risk of apnea, CPAP pressure requirements and overall health risks especially cardiovascular and diabetes. Thus patient is advised to lose weight. * Change CPAP pressure to 12 cmH2O * Update supply prescription * Notify me if snoring with mask or feeling that the pressure is too much or too little * Attempt to lose weight * Call this office if any problems using CPAP * Return for follow up in 12 months, or sooner if concerns arise Adjust device pressure to (cmH2O): 12 Counseling Topics: Spare mask, Weight loss health impact Prescriptions: Device supplies Follow up with Sleep Care in: 1 year Visit Type: In Office Time Spent with Patient (minutes): 27 Provider Statement: I spent 100% of the Face to Face Visit with the patient with greater than 50% spent counseling the patient and coordination of care.
[2023-11-29 10:31] VITALS: BP 140/85; O2SAT 92
== END 2023-11-29 09:51 | disposition home or self-care (01) ==
LOC: SC 09:50
PROVIDERS: ATTEND Nurse Practitioner Family
DX: G47.33 Obstructive sleep apnea (adult) (pediatric) (principal); E66.01 Morbid (severe) obesity due to excess calories; Z68.43 Body mass index [BMI] 50.0-59.9, adult
CPT/HCPCS: 99212; 99213

== ENCOUNTER 2023-12-29 08:20 | Emergency (ER) | payer MEDICAID ==
--- NOTE | 2023-12-29 09:11 | ED Physician Documentation ---
PD HPI BACK PAIN - Stated complaint Stated Complaint: BACK PX - Chief complaint Chief Complaint: Back Pain - History obtained from History obtained from: Patient - History of Present Illness Timing - onset: How many weeks ago (1) Timing - duration: Weeks (1) Timing - details: Gradual onset, Still present Location: Lower, Left Quality: Pain, Spasm, Similar to prior episodes Associated symptoms: Other (pain to the hands) Improves with: Rest, Meds Worsened by: Movement Similar symptoms before: Diagnosis (psoriatic arthritis) Recently seen: Clinic - Additional information Additional information: Serg Cleaning is a 38-year-old male with a history of psoriatic arthritis who presents to the emergency department this morning with back pain that is out of control. He indicates that over the past week despite being on prednisone and sulfasalazine his back pain is not tolerable.. He is complaining of pain to his left lower back similar to what he had previously as well as pain to his hands. He indicates that he has been diagnosed with psoriatic arthritis about 6 months ago and he has been put on some sulfasalazine and prednisone with some improvement in his pain initially he has been taken off of the prednisone and pain came back he eventually was put back onto the prednisone and he is not having an adequate pain relief. He indicates he is taking 20 mg of prednisone daily. He has a history of diabetes and he tells me he does not get up at night to go to the bathroom and that his hemoglobin A1c last checked was normal and he is on metformin. Review of Systems Constitutional: denies: Fever, Chills, Sweats Ears: denies: Ear pain Nose: denies: Congestion Throat: denies: Sore throat Cardiac: denies: Chest pain / pressure Respiratory: denies: Dyspnea, Cough GI: denies: Abdominal Pain, Nausea, Vomiting, Constipation, Diarrhea : denies: Dysuria, Frequency Skin: denies: Rash Musculoskeletal: reports: Back pain, Joint pain. denies: Neck pain Neurologic: denies: Generalized weakness, Focal weakness, Numbness PD PAST MEDICAL HISTORY - Past Medical History Past Medical History: Yes Cardiovascular: Hypertension, High cholesterol, Deep vein thrombosis Respiratory: None Neuro: None Endocrine/Autoimmune: Type 2 diabetes GI: None : None HEENT: None Psych: ADD/ADHD Musculoskeletal: Chronic back pain, Other Derm: Other - Past Surgical History Past Surgical History: Yes - Present Medications Home Medications: Ambulatory Orders Medication Instructions Recorded Confirmed lisinopriL [Lisinopril] 40 mg PO DAILY 02/25/22 12/29/23 Rosuvastatin Calcium [Crestor] 10 mg PO DAILY 01/29/23 12/29/23 metFORMIN [Glucophage] 500 mg PO BID 01/29/23 12/29/23 Amlodipine Besylate [Norvasc] 10 mg PO DAILY 12/29/23 12/29/23 Chlorthalidone 25 mg ORAL DAILY 12/29/23 12/29/23 Ibuprofen [Motrin] 1 tablet PO Q8H PRN 12/29/23 12/29/23 Oxycodone HCl/Acetaminophen 1 - 2 each PO Q6H PRN #14 tablet 12/29/23 [Percocet 5-325 mg Tablet] predniSONE [Prednisone] 20 mg PO DAILY 12/29/23 12/29/23 sulfaSALAzine [Sulfasalazine] 500 mg PO BID 12/29/23 12/29/23 - Allergies Allergies/Adverse Reactions: Allergies Allergy/AdvReac Type Severity Reaction Status Date / Time Penicillins Allergy Edema Verified 12/29/23 08:25 - Social History Does the pt smoke?: No Smoking Status: Never smoker Does the pt drink ETOH?: No Does the pt have substance abuse?: No - Immunizations Immunizations are current?: Yes - POLST Patient has POLST: No PD ED PE NORMAL - Vitals Vital signs reviewed: Yes (Hypertensive) - General General: Alert and oriented X 3, No acute distress, Well developed/nourished, Other (6 foot 7 inch male weighing 221 kg.) - HEENT HEENT: Atraumatic, PERRL, EOMI - Respiratory Respiratory: No respiratory distress - Back Back: No CVA TTP, No spinal TTP, Other (Mild paraspinous tenderness to the L4-5 area on the left.) - Derm Derm: Normal color, Warm and dry, No rash - Extremities Extremities: No deformity, Other (This patient has gigantic hands. They almost seem swollen. 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 secondary to pain.) - Neuro Neuro: Alert and oriented X 3, baker head 2-12 intact, No motor deficit, No sensory deficit, Normal speech Eye Opening: Spontaneous Motor: Obeys Commands Verbal: Oriented GCS Score: 15 - Psych Psych: Normal mood, Normal affect Results - Vitals Vitals: Vital Signs - 24 hr 12/29/23 12/29/23 08:25 10:07 Temperature 36.7 C 36.4 C L Heart Rate 83 84 Respiratory 18 18 Rate Blood Pressure 144/70 H 138/88 H O2 Saturation 94 96 Oxygen O2 Source Room air - Labs Labs: Laboratory Tests 12/29/23 12/29/23 12/29/23 09:16 09:16 09:16 WBC 5.5 RBC 5.00 Hgb 14.0 Hct 44.0 MCV 88.0 MCH 28.0 MCHC 31.8 L RDW 13.6 Plt Count 192 MPV 9.1 Neut # (Auto) 2.3 Lymph # (Auto) 2.5 [place] # (Auto) 0.6 Eos # (Auto) 0.1 Baso # (Auto) 0.0 Absolute Nucleated RBC 0.00 Nucleated RBC % 0.0 ESR 2 Sodium 136 Potassium 4.1 Chloride 100 L Carbon Dioxide 28 Anion Gap 8.0 BUN 21 H Creatinine 1.0 Estimated GFR (MDRD) 102 Glucose 152 H Calcium 9.5 Total Bilirubin 0.5 AST 31 ALT 44 Alkaline Phosphatase 59 C-Reactive Protein < 0.5 Total Protein 7.5 Albumin 4.3 Globulin 3.2 Albumin/Globulin Ratio 1.3 Lipase 35 PD Medical Decision Making - ED course Complexity details: reviewed results, re-evaluated patient, considered differential, d/w patient ED course: 38-year-old male with history of psoriatic arthritis has exacerbation of his symptoms despite being on medication. His dose of prednisone is 20 mg daily and he is a large person. He weighs almost 486 pounds. I thought maybe his dose of prednisone was low. Today he is here for pain control. I took this opportunity to draw his inflammatory markers for future reference and we administered 10 mg of dexamethasone. I will provide a short course of pain medication for the patient and refer him back to his primary school teacher librarian for further medication adjustment. The patient did have improvement prior to discharge. Departure - Departure Disposition: 01 Home, Self Care Clinical Impression: Back pain Qualifiers: Back pain location: low back pain Chronicity: chronic Back pain laterality: left Sciatica presence: with sciatica Sciatica laterality: sciatica of left side Qualified Code(s): M54.42 - Lumbago with sciatica, left side Condition: Stable Instructions: ED Low Back Pain Injury Follow-Up: Fatuma Penn ARNP [Primary Care Provider] - Prescriptions: Oxycodone HCl/Acetaminophen [Percocet 5-325 mg Tablet] 1 - 2 each PO Q6H PRN #14 tablet PRN Reason: pain Comments: Serg, today it looks like there is some inflammation causing a worsening of your psoriatic arthritis symptoms and we have given you a dose of dexamethasone. For the record your ESR was 2 and the CRP was <0.5. These values are low. This steroid will likely help for about 2 days. Follow-up with your primary care doctor for potential change in your medications. In the meantime I have provided a prescription for some Percocet which we have E scribed to the [facility] pharmacy in [place]. Discharge Date/Time: 12/29/23 10:07
[2023-12-29] MEDS: CHERRY SYRUP 10 ML UDC PO ONE (09:15)
[2023-12-29] MEDS: DEXAMETHASONE 10 MG/ML VIAL PO STA (09:15)
[2023-12-29 09:22] LABS: BASOPHILS % (AUTO) 0.4 %; EOSINOPHILS # (AUTO) 0.1 10^3/uL (0.0-0.7); EOSINOPHILS % (AUTO) 1.6 %; LYMPHOCYTES # (AUTO) 2.5 10^3/uL (1.5-3.5); LYMPHOCYTES % (AUTO) 45.3 %; MEAN CORPUSCULAR HGB CONC 31.8 g/dL (32.0-36.0); MEAN PLATELET VOLUME 9.1 fL (7.4-11.4); MONOCYTES # (AUTO) 0.6 10^3/uL (0.0-1.0); NEUTROPHILS # (AUTO) 2.3 10^3/uL (1.5-6.6); NEUTROPHILS % (AUTO) 42.3 %; PLT - PLATELET COUNT 192 10^3/uL (130-450); RED CELL DISTRIBUTION WIDTH 13.6 % (12.0-15.0); WHITE BLOOD COUNT 5.5 x10^3/uL (4.8-10.8)
[2023-12-29 09:35] LABS: ALBUMIN 4.3 g/dL (3.2-5.5); ALBUMIN/GLOBULIN RATIO 1.3 (1.0-2.2); ALKALINE PHOSPHATASE 59 IU/L (42-121); ALT ALANINE AMINOTRANSFERASE 44 IU/L (10-60); AST ASPARTATE AMINOTRANSFERASE 31 IU/L (10-42); BILIRUBIN,TOTAL 0.5 mg/dL (0.2-1.0); BUN - BLOOD UREA NITROGEN 21 mg/dL (6-20); CALCIUM 9.5 mg/dL (8.5-10.3); CARBON DIOXIDE - CO2 28 mmol/L (21-32); CHLORIDE 100 mmol/L (101-111); CRP - C-REACTIVE PROTEIN < 0.5 mg/dL (<0.5); GFR - MDRD 102 (>89); GLUCOSE 152 mg/dL (74-104); LIPASE 35 U/L (11-82); POTASSIUM 4.1 mmol/L (3.5-4.5); SODIUM 136 mmol/L (135-145); TOTAL PROTEIN 7.5 g/dL (6.4-8.9)
[2023-12-29 10:12] VITALS: BP 138/88; O2SAT 96
== END 2023-12-29 10:07 | disposition home or self-care (01) ==
LOC: ED 08:20
DX: M54.42 Lumbago with sciatica, left side (principal); L40.50 Arthropathic psoriasis, unspecified; E11.9 Type 2 diabetes mellitus without complications; Z79.84 Long term (current) use of oral hypoglycemic drugs; I10 Essential (primary) hypertension
CPT/HCPCS: 36415; 80053; 83690; 85025; 85651; 86140; 99283; 99284; A9270

== ENCOUNTER 2024-03-05 11:36 | Emergency (ER) | payer MEDICAID ==
--- NOTE | 2024-03-05 12:26 | ED Physician Documentation ---
History of Present Illness - Stated complaint Stated Complaint: BILAT LEG SWELLING/ACHES - Chief complaint Chief Complaint: Ext Problem - Additonal information Additional information: 39-year-old male with history of hypertension, hypercholesterolemia, DVT of the left lower extremity, type 2 diabetes, psoriatic rheumatoid arthritis presents emergency department for concerns of worsening bilateral lower extremity swelling. He denies any shortness of breath no chest pain he does report increased fatigue and mild dizziness he says that the dizziness is not triggered by anything and has not noticed that any sort of exertional activity or change of position triggers it or alleviates it he says pretty mild he says that his main concern is the bilateral lower extremity swelling and increased severe fatigue. He just recently started new medication he says is a medication similar to Humira for psoriatic arthritis. PD PAST MEDICAL HISTORY - Past Medical History Cardiovascular: Hypertension, High cholesterol, Deep vein thrombosis Respiratory: None Neuro: None Endocrine/Autoimmune: Type 2 diabetes GI: None : None HEENT: None Psych: ADD/ADHD Musculoskeletal: Chronic back pain, Other Derm: Other - Past Surgical History Past Surgical History: Yes - Present Medications Home Medications: Ambulatory Orders Medication Instructions Recorded Confirmed lisinopriL [Lisinopril] 40 mg PO DAILY 02/25/22 03/05/24 Rosuvastatin Calcium [Crestor] 10 mg PO DAILY 01/29/23 03/05/24 metFORMIN [Glucophage] 500 mg PO BID 01/29/23 03/05/24 Amlodipine Besylate [Norvasc] 10 mg PO DAILY 12/29/23 03/05/24 Chlorthalidone 25 mg ORAL DAILY 12/29/23 03/05/24 predniSONE [Prednisone] 20 mg PO DAILY 12/29/23 03/05/24 sulfaSALAzine [Sulfasalazine] 500 mg PO BID 12/29/23 03/05/24 Adalimumab-Bwwd [Hadlima] 40 mg pe IM DAILY 03/05/24 03/05/24 - Allergies Allergies/Adverse Reactions: Allergies Allergy/AdvReac Type Severity Reaction Status Date / Time Penicillins Allergy Edema Verified 03/05/24 11:52 - Social History Does the pt smoke?: No Smoking Status: Never smoker Does the pt drink ETOH?: No Does the pt have substance abuse?: No - Immunizations Immunizations are current?: Yes - POLST Patient has POLST: No PD ED PE NORMAL - Vitals Vital signs reviewed: Yes - General General: Alert and oriented X 3, No acute distress, Other (obese) - Cardiac Cardiac: RRR, No murmur, No gallop, Strong equal pulses - Respiratory Respiratory: No respiratory distress, Clear bilaterally - Abdomen Abdomen: Normal bowel sounds, Soft - Back Back: No CVA TTP - Derm Derm: Normal color, Warm and dry, No rash - Extremities Extremities: No edema, No calf tenderness / cord Results - Vitals Vitals: Vital Signs - 24 hr 03/05/24 03/05/24 03/05/24 11:45 13:30 14:55 Temperature 36.3 C L 36.0 C L Heart Rate 67 69 65 Respiratory 17 16 13 Rate Blood Pressure 144/88 H 128/81 H 130/80 O2 Saturation 95 98 96 Oxygen O2 Source Room air - EKG (time done) 1204 EKG releavant findings:: EKG personally interpreted by author of this note. Relevant findings are: Rate: Rate (enter#) (69) Rhythm: NSR [place]: Normal Intervals: Normal NM Ischemia: Other (Borderline T wave abnormalities in the inferior leads) Computer interpretation: Agree with computer - Labs Labs: Laboratory Tests 03/05/24 03/05/24 03/05/24 12:50 12:50 12:50 WBC 7.2 RBC 4.71 Hgb 13.1 L Hct 41.3 L MCV 87.7 MCH 27.8 MCHC 31.7 L RDW 13.6 Plt Count 171 MPV 9.0 Neut # (Auto) 4.3 Lymph # (Auto) 2.1 [place] # (Auto) 0.6 Eos # (Auto) 0.2 Baso # (Auto) 0.0 Absolute Nucleated RBC 0.00 Nucleated RBC % 0.0 D-Dimer < 200.0 L Sodium 137 Potassium 4.2 Chloride 103 Carbon Dioxide 28 Anion Gap 6.0 BUN 20 Creatinine 0.9 Estimated GFR (MDRD) 114 Glucose 100 Calcium 9.5 Magnesium 1.6 L Total Bilirubin 0.3 AST 25 ALT 36 Alkaline Phosphatase 58 B-Natriuretic Peptide Total Protein 7.3 Albumin 4.4 Globulin 2.9 Albumin/Globulin Ratio 1.5 TSH 2.06 03/05/24 12:50 WBC RBC Hgb Hct MCV MCH MCHC RDW Plt Count MPV Neut # (Auto) Lymph # (Auto) [place] # (Auto) Eos # (Auto) Baso # (Auto) Absolute Nucleated RBC Nucleated RBC % D-Dimer Sodium Potassium Chloride Carbon Dioxide Anion Gap BUN Creatinine Estimated GFR (MDRD) Glucose Calcium Magnesium Total Bilirubin AST ALT Alkaline Phosphatase B-Natriuretic Peptide 18 Total Protein Albumin Globulin Albumin/Globulin Ratio TSH PD Medical Decision Making - ED course ED course: 39-year-old male presents emergency department for concerns of bilateral lower extremity swelling. There is concerns with him having history of DVT and the nurses were worried that possibly his left dorsalis pedis pulse was more weak than his right which led me to collect a D-dimer which was found to be negative ruling out possible suspicion for DVT. Further labs were complete and there was no white count no anemia and really no electrolyte abnormalities except from very mildly suppressed magnesium at 1.6. TSH also found to be within normal limits. EKG also complete no abnormalities. Patient recently saw his inorganic chemical technician about a month ago has close contact with him. He has no exertional chest pain or shortness of breath making me think that this is not related to any sort of cardiac etiology. I do believe that given that patient was recently started on new medication similar to Humira for his psoriatic rheumatoid arthritis I do believe that this could be symptoms related to that. He is told to follow-up with his residential door installer to talk about side effects of these medications and to decide with his residential door installer if he should continue or discontinue these medications. Strict ER return precautions were given and he was also told to follow-up with his inorganic chemical technician for further evaluation outpatient as needed. Also of note his BNP was found to be within normal limits. Strict ER return precautions were given all questions answered patient is safe for discharge at this time with close follow-up and strict ER return precautions. Departure - Departure Disposition: 01 Home, Self Care Clinical Impression: Leg swelling Instructions: ED Edema Legs Bilateral Comments: Thank you for trusting us with your care. We have completed labs and I am not seeing any reason as to what is causing your leg swelling. I recommend following up with your residential door installer to see if the new medication that you have been started on is was causing this and way out the pros and cons of continuing or discontinuing the medication. Please come back to the emergency department if you are starting to develop any shortness of breath, chest pain or unilateral calf pain. Please also follow-up with your inorganic chemical technician to let them know about today's ER visit. Keep your legs elevated above your heart when at rest especially at nighttime when you are sleeping and consider adding compression stockings until you are able to follow-up with your residential door installer and inorganic chemical technician. Forms: PCP List Discharge Date/Time: 03/05/24 15:00
[2024-03-05 13:02] LABS: BASOPHILS % (AUTO) 0.3 %; EOSINOPHILS # (AUTO) 0.2 10^3/uL (0.0-0.7); EOSINOPHILS % (AUTO) 2.5 %; HCT - HEMATOCRIT 41.3 % (42.0-52.0); HGB - HEMOGLOBIN 13.1 g/dL (14.0-18.0); LYMPHOCYTES # (AUTO) 2.1 10^3/uL (1.5-3.5); LYMPHOCYTES % (AUTO) 28.6 %; MEAN CORPUSCULAR HEMOGLOBIN 27.8 pg (27.0-31.0); MEAN CORPUSCULAR HGB CONC 31.7 g/dL (32.0-36.0); MEAN CORPUSCULAR VOLUME 87.7 fL (80.0-94.0); MONOCYTES # (AUTO) 0.6 10^3/uL (0.0-1.0); MONOCYTES % (AUTO) 8.8 %; NEUTROPHILS # (AUTO) 4.3 10^3/uL (1.5-6.6); NEUTROPHILS % (AUTO) 59.5 %; PLT - PLATELET COUNT 171 10^3/uL (130-450); RED BLOOD COUNT 4.71 10^6/uL (4.70-6.10); RED CELL DISTRIBUTION WIDTH 13.6 % (12.0-15.0); WHITE BLOOD COUNT 7.2 x10^3/uL (4.8-10.8)
[2024-03-05 13:18] LABS: ALBUMIN 4.4 g/dL (3.2-5.5); ALBUMIN/GLOBULIN RATIO 1.5 (1.0-2.2); BILIRUBIN,TOTAL 0.3 mg/dL (0.2-1.0); CALCIUM 9.5 mg/dL (8.5-10.3); CREATININE 0.9 mg/dL (0.6-1.3); MAGNESIUM 1.6 mg/dL (1.7-2.3); POTASSIUM 4.2 mmol/L (3.5-4.5); TOTAL PROTEIN 7.3 g/dL (6.4-8.9)
[2024-03-05 13:31] LABS: THYROID STIMULATING HORMONE 2.06 uIU/mL (0.34-5.60)
[2024-03-05 15:04] VITALS: BP 130/80; O2SAT 96
== END 2024-03-05 15:00 | disposition home or self-care (01) ==
LOC: ED 11:36
DX: R60.0 Localized edema (principal)
CPT/HCPCS: 36415; 80053; 83735; 83880; 84443; 85025; 85379; 93005; 99283

== ENCOUNTER 2024-04-01 09:21 | Outpatient (CLI) | payer MEDICAID ==
[2024-04-01 12:35] LABS: BASOPHILS % (AUTO) 0.7 %; EOSINOPHILS # (AUTO) 0.2 10^3/uL (0.0-0.7); EOSINOPHILS % (AUTO) 2.8 %; HCT - HEMATOCRIT 42.9 % (42.0-52.0); HGB - HEMOGLOBIN 13.8 g/dL (14.0-18.0); LYMPHOCYTES # (AUTO) 1.9 10^3/uL (1.5-3.5); LYMPHOCYTES % (AUTO) 32.1 %; MEAN CORPUSCULAR HEMOGLOBIN 28.4 pg (27.0-31.0); MEAN CORPUSCULAR HGB CONC 32.2 g/dL (32.0-36.0); MEAN CORPUSCULAR VOLUME 88.3 fL (80.0-94.0); MEAN PLATELET VOLUME 9.7 fL (7.4-11.4); MONOCYTES # (AUTO) 0.6 10^3/uL (0.0-1.0); MONOCYTES % (AUTO) 9.5 %; NEUTROPHILS # (AUTO) 3.3 10^3/uL (1.5-6.6); NEUTROPHILS % (AUTO) 54.7 %; PLT - PLATELET COUNT 204 10^3/uL (130-450); RED BLOOD COUNT 4.86 10^6/uL (4.70-6.10); RED CELL DISTRIBUTION WIDTH 13.5 % (12.0-15.0)
[2024-04-01 13:05] LABS: ALBUMIN 4.7 g/dL (3.2-5.5); ALBUMIN/GLOBULIN RATIO 1.5 (1.0-2.2); ALKALINE PHOSPHATASE 53 IU/L (42-121); ALT ALANINE AMINOTRANSFERASE 48 IU/L (10-60); AST ASPARTATE AMINOTRANSFERASE 32 IU/L (10-42); BILIRUBIN,TOTAL 0.5 mg/dL (0.2-1.0); BUN - BLOOD UREA NITROGEN 27 mg/dL (6-20); CALCIUM 10.2 mg/dL (8.5-10.3); CARBON DIOXIDE - CO2 28 mmol/L (21-32); CHLORIDE 100 mmol/L (101-111); CHOL/HDL RATIO 3.2 (<5.0); CHOLESTEROL 149 mg/dL; CREATININE 1.2 mg/dL (0.6-1.3); GFR - MDRD 82 (>89); GLUCOSE 103 mg/dL (74-104); HDL CHOLESTEROL 46 mg/dL; LDL CHOLESTEROL,CALCULATED 78 mg/dL; LDL/HDL RATIO 1.7 (<3.6); POTASSIUM 4.4 mmol/L (3.5-4.5); SODIUM 135 mmol/L (135-145); TOTAL PROTEIN 7.9 g/dL (6.4-8.9); TRIGLYCERIDES 123 mg/dL; VLDL CHOLESTEROL 25 mg/dL
[2024-04-01 13:12] LABS: THYROID STIMULATING HORMONE 2.43 uIU/mL (0.34-5.60)
[2024-04-01 13:15] LABS: ESTIMATED AVERAGE GLUCOSE 117 mg/dL (70-100); HEMOGLOBIN A1c% 5.7 % (4.27-6.07)
== END 2024-04-01 09:22 | disposition home or self-care (01) ==
LOC: LAB.N 09:21
PROVIDERS: ATTEND Nurse Practitioner Family
DX: I10 Essential (primary) hypertension (principal); E78.5 Hyperlipidemia, unspecified; E11.9 Type 2 diabetes mellitus without complications
CPT/HCPCS: 36415; 80053; 80061; 83036; 83721; 84443; 85025

== ENCOUNTER 2024-05-18 21:36 | Emergency (ER) | payer OTHER, MEDICAID ==
[2024-05-18 21:57] LABS: BASOPHILS % (AUTO) 0.3 %; EOSINOPHILS # (AUTO) 0.2 10^3/uL (0.0-0.7); EOSINOPHILS % (AUTO) 2.7 %; HCT - HEMATOCRIT 41.8 % (42.0-52.0); HGB - HEMOGLOBIN 13.3 g/dL (14.0-18.0); LYMPHOCYTES # (AUTO) 2.8 10^3/uL (1.5-3.5); LYMPHOCYTES % (AUTO) 37.6 %; MEAN CORPUSCULAR HEMOGLOBIN 28.4 pg (27.0-31.0); MEAN CORPUSCULAR HGB CONC 31.8 g/dL (32.0-36.0); MEAN CORPUSCULAR VOLUME 89.3 fL (80.0-94.0); MEAN PLATELET VOLUME 9.2 fL (7.4-11.4); MONOCYTES # (AUTO) 0.7 10^3/uL (0.0-1.0); MONOCYTES % (AUTO) 8.8 %; NEUTROPHILS # (AUTO) 3.7 10^3/uL (1.5-6.6); NEUTROPHILS % (AUTO) 50.3 %; PLT - PLATELET COUNT 197 10^3/uL (130-450); RED BLOOD COUNT 4.68 10^6/uL (4.70-6.10); RED CELL DISTRIBUTION WIDTH 13.2 % (12.0-15.0); WHITE BLOOD COUNT 7.4 x10^3/uL (4.8-10.8)
[2024-05-18 22:11] LABS: ALBUMIN 4.5 g/dL (3.2-5.5); ALBUMIN/GLOBULIN RATIO 1.4 (1.0-2.2); BILIRUBIN,TOTAL 0.4 mg/dL (0.2-1.0); CALCIUM 10.4 mg/dL (8.5-10.3); CREATININE 1.2 mg/dL (0.6-1.3); POTASSIUM 4.5 mmol/L (3.5-4.5); TOTAL PROTEIN 7.7 g/dL (6.4-8.9)
[2024-05-18 23:53] LABS: BILIRUBIN,URINE NEGATIVE (NEGATIVE); GLUCOSE, URINE (UA) NEGATIVE (NEGATIVE); KETONES,URINE (UA) NEGATIVE (NEGATIVE); LEUKOCYTE ESTERASE, URINE NEGATIVE (NEGATIVE); NITRITE,URINE NEGATIVE (NEGATIVE); OCCULT BLOOD,URINE NEGATIVE (NEGATIVE); PH,URINE 5.5 PH (5.0-7.5); PROTEIN,URINE NEGATIVE (NEGATIVE); UROBILINOGEN,URINE 0.2 (NORMAL) E.U./dL (NORMAL)
[2024-05-19 00:03] LABS: CLARITY,URINE V (CLEAR)
--- NOTE | 2024-05-19 00:32 | ED Physician Documentation ---
History of Present Illness - Stated complaint Stated Complaint: GI - Chief complaint Chief Complaint: Abd Pain - History obtained from History obtained from: Patient - Additonal information Additional information: HPI from patient. Patient c/o nausea, vomiting, and diarrhea x 1 week with LUQ pain. Denies fever, denies blood in vomit, denies BRBPR. He has been having dark black stool for several days although this started after taking a dose of pepto bismol. There are no exacerbating nor ameliorating factors. Recently evaluated for these symptoms in outpatient setting and was prescribed loperamide and ondansetron but has not taken either of these medications yet Review of Systems Constitutional: denies: Fever, Chills, Sweats PD PAST MEDICAL HISTORY - Past Medical History Past Medical History: Yes Cardiovascular: Hypertension, High cholesterol, Deep vein thrombosis Respiratory: None Neuro: None Endocrine/Autoimmune: Type 2 diabetes GI: None : None HEENT: None Psych: ADD/ADHD Musculoskeletal: Chronic back pain, Other Derm: Other - Past Surgical History Past Surgical History: Yes - Present Medications Home Medications: Ambulatory Orders Medication Instructions Recorded Confirmed lisinopriL [Lisinopril] 40 mg PO DAILY 02/25/22 03/05/24 Rosuvastatin Calcium [Crestor] 10 mg PO DAILY 01/29/23 03/05/24 metFORMIN [Glucophage] 500 mg PO BID 01/29/23 03/05/24 Amlodipine Besylate [Norvasc] 10 mg PO DAILY 12/29/23 03/05/24 Chlorthalidone 25 mg ORAL DAILY 12/29/23 03/05/24 predniSONE [Prednisone] 20 mg PO DAILY 12/29/23 03/05/24 sulfaSALAzine [Sulfasalazine] 500 mg PO BID 12/29/23 03/05/24 Adalimumab-Bwwd [Hadlima] 40 mg pe IM DAILY 03/05/24 03/05/24 Promethazine [Phenergan] 25 mg PO Q6H PRN #10 tab 05/19/24 - Allergies Allergies/Adverse Reactions: Allergies Allergy/AdvReac Type Severity Reaction Status Date / Time Penicillins Allergy Edema Verified 05/18/24 21:44 - Social History Does the pt smoke?: No Smoking Status: Never smoker Does the pt drink ETOH?: No Does the pt have substance abuse?: No - Immunizations Immunizations are current?: Yes - POLST Patient has POLST: No PD ED PE NORMAL - Vitals Vital signs reviewed: Yes - General General: Alert and oriented X 3, No acute distress, Well developed/nourished - HEENT HEENT: Moist mucous membranes - Cardiac Cardiac: RRR, No murmur - Respiratory Respiratory: No respiratory distress, Clear bilaterally - Abdomen Abdomen: Normal bowel sounds, Soft, Non tender, Non distended - Derm Derm: Normal color, Warm and dry Results - Vitals Vitals: Oxygen O2 Source Room air - Labs Labs: Laboratory Tests 05/18/24 05/18/24 05/18/24 21:53 21:53 23:40 WBC 7.4 RBC 4.68 L Hgb 13.3 L Hct 41.8 L MCV 89.3 MCH 28.4 MCHC 31.8 L RDW 13.2 Plt Count 197 MPV 9.2 Neut # (Auto) 3.7 Lymph # (Auto) 2.8 Riley # (Auto) 0.7 Eos # (Auto) 0.2 Baso # (Auto) 0.0 Absolute Nucleated RBC 0.00 Nucleated RBC % 0.0 Sodium 138 Potassium 4.5 Chloride 102 Carbon Dioxide 28 Anion Gap 8.0 BUN 32 H Creatinine 1.2 Estimated GFR (MDRD) 82 L Glucose 95 Calcium 10.4 H Total Bilirubin 0.4 AST 26 ALT 40 Alkaline Phosphatase 56 Total Protein 7.7 Albumin 4.5 Globulin 3.2 Albumin/Globulin Ratio 1.4 Lipase 24 Urine Color YELLOW Urine Clarity V Urine pH 5.5 Ur Specific [place] >=1.030 H Urine Protein NEGATIVE Urine Glucose (UA) NEGATIVE Urine Ketones NEGATIVE Urine Occult Blood NEGATIVE Urine Nitrite NEGATIVE Urine Bilirubin NEGATIVE Urine Urobilinogen 0.2 (NORMAL) Ur Leukocyte Esterase NEGATIVE Ur Microscopic Review NOT INDICATED Urine Culture Comments NOT INDICATED PD Medical Decision Making - ED course Complexity details: reviewed results, re-evaluated patient, considered differential, d/w patient ED course: No concerning nor diagnostic findings on blood tests. hgb below normal range but insignificantly so (13.3), with normal WBC and platelets. Mildly elevated BUN (32) with high-normal creatinine (1.2). UA normal except concentrated (SG >1.030), although clinically patient does not appear dehydrated (MMM, not tachycardic). His abdominal exam is completely benign; NT to deep palpation. Results d/w patient. We discussed options for symptomatic treatment but he declines both antinauseants and antidiarrheals as his symptoms have abated without them. He says he will try the loperamide as prescribed for diarrhea and declines rx for lomotil. He is agreeable to rx for phenergan to be used if the previously prescribed ondansetron does not adequately control n/v if these symptoms recur. Return precautions reviewed. Etiology of symptoms is not apparent at this time. LGIB was entertained as part of differential diagnosis and we discussed rectal exam for occult blood testing ( explained in lay-person terms); patient declines this at this time. Given no BRBPR nor any stool output during ED stay, even if result was guiaic positive, patient would still be appropriate for d/c home given stability and only mildly abnormal blood tests (hgb and elevated BUN/creatinine ratio). I emphasized return for BRBPR, ongoing/worsening dark black (especially tarry) stool, and/or other signs/symptoms s/o anemia (fatigue, CEDEÑO, pallor) Departure - Departure Disposition: 01 Home, Self Care Clinical Impression: Vomiting and diarrhea Condition: Good Instructions: ED Diet Vomiting Diarrhea, ED Vomiting Diarrhea Nonspecific Ad Follow-Up: Fatuma Penn ARNP [Primary Care Provider] - Prescriptions: Promethazine [Phenergan] 25 mg PO Q6H PRN #10 tab PRN Reason: Nausea / Vomiting Comments: There were no concerning or diagnostic findings on tonight's blood test. As we discussed, your red blood cell count was just below the normal range, but not nearly enough to cause symptoms nor reason for immediate concern. Your kidney function tests were slightly abnormal in a pattern that could be due to dehydration, although another possible cause of this pattern of kidney function tests is gastrointestinal bleeding. You should mention both of these findings to your primary care provider when you follow-up, as they might direct further testing. Contact your primary care provider in the office next opens to arrange for the next available point for follow-up/reevaluation. I electronically submitted a prescription for Phenergan (antinausea medication) to the [facility] pharmacy in [place]. If the antinausea medication that was recently prescribed for you adequately controls your symptoms, then you do not need to fill the Phenergan; conversely, if the ondansetron is not controlling your nausea and vomiting, you can then try the Phenergan. Forms: PCP List Discharge Date/Time: 05/19/24 01:07
[2024-05-19 01:07] VITALS: BP 124/78; O2SAT 99
== END 2024-05-19 01:07 | disposition home or self-care (01) ==
LOC: ED 21:36
DX: R11.2 Nausea with vomiting, unspecified (principal); R19.7 Diarrhea, unspecified; R10.12 Left upper quadrant pain
CPT/HCPCS: 36415; 80053; 81001; 81003; 83690; 85025; 87086; 99283; 99284